=== PATIENT | male | born 1945 | race Caucasian/White ===

== ENCOUNTER 2019-12-17 06:59 | Outpatient (REF) | payer MEDICARE, OTHER, SELFPAY ==
[2019-12-17 08:09] LABS: Estimated Average Glucose 140 mg/dL; Hemoglobin A1c % 6.5 %
[2019-12-17 08:19] LABS: Cholesterol 162 mg/dL; HDL Cholesterol 61 mg/dL; LDL Cholesterol Calculated 77 mg/dl; Triglycerides 122 mg/dL
== END 2019-12-17 07:00 | disposition home or self-care (01) ==
LOC: HO.LAB 06:59
PROVIDERS: Visit Provider Internal Medicine
DX: E11.9 Type 2 diabetes mellitus without complications (principal)
CPT/HCPCS: 80061; 83036

== ENCOUNTER 2020-02-11 07:01 | Outpatient (REF) | payer MEDICARE, OTHER, SELFPAY ==
[2020-02-11 08:15] LABS: Hematocrit 45.2 % (42-52); Hemoglobin 15.2 g/dl (14.0-18.0)
[2020-02-11 08:28] LABS: Estimated Average Glucose 134 mg/dL; Hemoglobin A1c % 6.3 %
[2020-02-11 08:44] LABS: Cholesterol 158 mg/dL; HDL Cholesterol 58 mg/dL; LDL Cholesterol Calculated 76 mg/dl; Triglycerides 120 mg/dL
[2020-02-11 08:46] LABS: Alanine Aminotransferase 25 U/L (0-40); Albumin Level 4.4 g/dL (3.5-5.0); Alkaline Phosphatase 42 U/L (39-117); Anion Gap 16 (12-20); Aspartate Amino Transferase 17 U/L (5-37); Bilirubin Total 0.8 mg/dL (0.0-1.0); Blood Urea Nitrogen 15 mg/dL (9-16); Calcium 9.1 mg/dL (8.4-10.2); Carbon Dioxide 28 mmol/L (22-29); Chloride 101 mmol/L (96-108); Estimated Glomerular Filt Rate > 60; Glucose Fasting 125 mg/dL (60-99); Potassium 3.9 mmol/l (3.3-5.1); Sodium 141 mmol/L (135-145)
[2020-02-11 09:02] LABS: Creatinine Urine 173.68 mg/dL
[2020-02-11 09:07] LABS: Vitamin D 25-OH Total 39.1 ng/mL (>30)
[2020-02-12 18:57] LABS: LDL Cholesterol Direct 81 mg/dL (<100)
== END 2020-02-11 07:02 | disposition home or self-care (01) ==
LOC: HO.LAB 07:01
PROVIDERS: PCP Internal Medicine; Visit Provider Internal Medicine Endocrinology, Diabetes & Metabolism
DX: E11.65 Type 2 diabetes mellitus with hyperglycemia (principal)
CPT/HCPCS: 36415; 80053; 80061; 82043; 82306; 83036; 83721; 85014; 85018

== ENCOUNTER → 2020-02-17 08:02 | Outpatient (BNVA) | payer MEDICARE, OTHER, SELFPAY | PROVIDERS: PCP Internal Medicine; Referring Provider Internal Medicine; Visit Provider Internal Medicine Endocrinology, Diabetes & Metabolism | DX: E11.40 Type 2 diabetes mellitus with diabetic neuropathy, unspecified (principal); I10 Essential (primary) hypertension; E78.5 Hyperlipidemia, unspecified; E55.9 Vitamin D deficiency, unspecified; E04.2 Nontoxic multinodular goiter; Z79.4 Long term (current) use of insulin; Z79.899 Other long term (current) drug therapy | CPT/HCPCS: Q3014 ==

== ENCOUNTER → 2020-08-04 09:11 | Outpatient (BNVA) | payer MEDICARE, OTHER, SELFPAY | PROVIDERS: PCP Internal Medicine; Visit Provider Urology | DX: N40.1 Benign prostatic hyperplasia with lower urinary tract symptoms (principal); R35.0 Frequency of micturition; R39.12 Poor urinary stream | CPT/HCPCS: 51798; 99212 ==

== ENCOUNTER 2020-08-11 07:02 | Outpatient (REF) | payer MEDICARE, OTHER, SELFPAY ==
[2020-08-11 08:44] LABS: MANUAL DIFF FLAG NO
[2020-08-11 08:48] LABS: Basophils Absolute Auto 0.1 X10*3/uL (0.0-0.2); Basophils Percent Auto 0.7 % (0-2); Eosinophils Absolute Auto 0.2 X10*3/uL (0.0-0.4); Eosinophils Percent Auto 2.3 % (0-4); Hematocrit 43.4 % (42-52); Hemoglobin 14.4 g/dl (14.0-18.0); Imm Gran Abs Auto 0.02 X10*3/uL (0.00-0.03); Imm Gran Pct Auto 0.3 % (0.0-0.4); Lymphocytes Absolute Auto 2.2 X10*3/uL (1.2-4.9); Lymphocytes Percent Auto 31.9 % (20-40); Mean Corpuscular HGB Conc 33.2 g/dl (31.0-36.0); Mean Corpuscular Hemoglobin 29.9 pg (27.0-33.0); Mean Corpuscular Volume 90.2 fL (80-98); Mean Platelet Volume 11.4 fL (9.4-12.4); Monocytes Absolute Auto 0.7 X10*3/uL (0.1-1.2); Monocytes Percent Auto 9.5 % (2-11); Neutrophils Absolute Auto 3.8 X10*3/uL (2.0-8.3); Neutrophils Percent Auto 55.3 % (45-73); Platelet Count 217 X10*3/uL (160-400); Red Blood Count 4.81 X10*6/uL (4.60-5.80); White Blood Count 6.9 X10*3/uL (4.8-10.8)
[2020-08-11 08:53] LABS: Estimated Average Glucose 137 mg/dL; Hemoglobin A1c % 6.4 %
[2020-08-11 09:03] LABS: Alanine Aminotransferase 26 U/L (0-40); Albumin Level 4.1 g/dL (3.5-5.0); Alkaline Phosphatase 41 U/L (39-117); Anion Gap 16 (12-20); Aspartate Amino Transferase 17 U/L (5-37); Bilirubin Total 0.7 mg/dL (0.0-1.0); Blood Urea Nitrogen 16 mg/dL (9-16); Calcium 9.4 mg/dL (8.4-10.2); Carbon Dioxide 29 mmol/L (22-29); Chloride 102 mmol/L (96-108); Cholesterol 158 mg/dL; Estimated Glomerular Filt Rate 58; Glucose Fasting 130 mg/dL (60-99); HDL Cholesterol 56 mg/dL; LDL Cholesterol Calculated 77 mg/dl; Potassium 3.9 mmol/L (3.3-5.1); Sodium 143 mmol/L (135-145); Total Protein 6.7 g/dL (6.5-8.0); Triglycerides 126 mg/dL
[2020-08-11 09:26] LABS: Thyroid Stimulating Hormone 1.05 uIU/mL (0.32-4.0)
[2020-08-11 09:30] LABS: Creatinine Urine 206.35 mg/dL; Microalbum/Creatinine Ratio Ur 5.8 ug/mg cr
== END 2020-08-11 07:03 | disposition home or self-care (01) ==
LOC: HO.LAB 07:02
PROVIDERS: PCP Internal Medicine; Visit Provider Internal Medicine
DX: Z00.00 Encounter for general adult medical examination without abnormal findings (principal); E11.9 Type 2 diabetes mellitus without complications; E03.9 Hypothyroidism, unspecified
CPT/HCPCS: 36415; 80053; 80061; 82043; 83036; 84443; 85025

== ENCOUNTER → 2020-08-18 07:59 | Outpatient (BNVA) | payer MEDICARE, OTHER, SELFPAY | PROVIDERS: PCP Internal Medicine; Visit Provider Internal Medicine Endocrinology, Diabetes & Metabolism | DX: E11.40 Type 2 diabetes mellitus with diabetic neuropathy, unspecified (principal); E78.5 Hyperlipidemia, unspecified; E55.9 Vitamin D deficiency, unspecified; E04.2 Nontoxic multinodular goiter; I10 Essential (primary) hypertension; Z79.4 Long term (current) use of insulin | CPT/HCPCS: 82947; 99212 ==

== ENCOUNTER 2021-03-16 07:39 | Outpatient (REF) | payer MEDICARE, OTHER, SELFPAY ==
[2021-03-16 08:45] LABS: Estimated Average Glucose 128 mg/dL; Hemoglobin A1c % 6.1 %
[2021-03-16 08:49] LABS: Cholesterol 159 mg/dL; HDL Cholesterol 53 mg/dL; LDL Cholesterol Calculated 83 mg/dl; Triglycerides 119 mg/dL
== END 2021-03-16 07:40 | disposition home or self-care (01) ==
LOC: HO.LAB 07:39
PROVIDERS: PCP Internal Medicine; Visit Provider Internal Medicine
DX: E11.9 Type 2 diabetes mellitus without complications (principal)
CPT/HCPCS: 36415; 80061; 83036

== ENCOUNTER 2021-06-18 06:50 | Outpatient (REF) | payer MEDICARE, OTHER, SELFPAY ==
[2021-06-18 07:56] LABS: Cholesterol 151 mg/dL; Glucose Fasting 99 mg/dL (60-99); HDL Cholesterol 54 mg/dL; LDL Cholesterol Calculated 69 mg/dl; Triglycerides 141 mg/dL
[2021-06-18 08:04] LABS: Estimated Average Glucose 128 mg/dL; Hemoglobin A1c % 6.1 %
== END 2021-06-18 06:51 | disposition home or self-care (01) ==
LOC: HO.LAB 06:50
PROVIDERS: PCP Internal Medicine; Visit Provider Internal Medicine
DX: Z00.00 Encounter for general adult medical examination without abnormal findings (principal); E11.65 Type 2 diabetes mellitus with hyperglycemia
CPT/HCPCS: 36415; 80061; 82947; 83036

== ENCOUNTER 2021-07-27 07:04 | Outpatient (REF) | payer MEDICARE, OTHER, SELFPAY ==
[2021-07-27 07:14] LABS: MANUAL DIFF FLAG NO
[2021-07-27 07:25] LABS: Basophils Absolute Auto 0.1 X10*3/uL (0.0-0.2); Basophils Percent Auto 0.7 % (0-2); Eosinophils Absolute Auto 0.2 X10*3/uL (0.0-0.4); Eosinophils Percent Auto 2.5 % (0-4); Hematocrit 44.4 % (42.0-52.0); Imm Gran Abs Auto 0.02 X10*3/uL (0.00-0.03); Imm Gran Pct Auto 0.2 % (0.0-0.4); Lymphocytes Absolute Auto 2.4 X10*3/uL (1.2-4.9); Lymphocytes Percent Auto 29.8 % (20-40); Mean Corpuscular HGB Conc 33.8 g/dl (31.0-36.0); Mean Corpuscular Hemoglobin 30.5 pg (27.0-33.0); Mean Corpuscular Volume 90.2 fL (80.0-98.0); Mean Platelet Volume 10.4 fL (9.4-12.4); Monocytes Absolute Auto 0.8 X10*3/uL (0.1-1.2); Monocytes Percent Auto 9.7 % (2-11); Neutrophils Absolute Auto 4.6 x10*3/uL (2.0-8.3); Neutrophils Percent Auto 57.1 % (45-73); Platelet Count 245 X10*3/uL (160-400); Red Blood Count 4.92 X10*6/uL (4.60-5.80); Red Cell Distribution Width 13.6 % (11.0-16.0); White Blood Count 8.1 X10*3/uL (4.8-10.8)
[2021-07-27 07:31] LABS: Estimated Average Glucose 123 mg/dL; Hemoglobin A1c % 5.9 %
[2021-07-27 08:04] LABS: Alanine Aminotransferase 22 U/L (0-40); Albumin Level 4.2 g/dL (3.5-5.0); Alkaline Phosphatase 44 U/L (39-117); Anion Gap 15 (12-20); Aspartate Amino Transferase 17 U/L (5-37); Bilirubin Total 0.9 mg/dL (0.0-1.0); Blood Urea Nitrogen 16 mg/dL (9-16); Calcium 9.2 mg/dL (8.4-10.2); Carbon Dioxide 27 mmol/L (22-29); Chloride 101 mmol/L (96-108); Cholesterol 157 mg/dL; Estimated Glomerular Filt Rate 59; Glucose Fasting 104 mg/dL (60-99); HDL Cholesterol 56 mg/dL; LDL Cholesterol Calculated 73 mg/dl; Sodium 139 mmol/L (135-145); Triglycerides 141 mg/dL
[2021-07-27 08:39] LABS: Prostate Specific Antigen 3.06 ng/mL (<0.05-4.0)
== END 2021-07-27 07:05 | disposition home or self-care (01) ==
LOC: HO.LAB 07:04
PROVIDERS: Nurse Practitioner Family; PCP Internal Medicine; Visit Provider Urology
DX: E78.00 Pure hypercholesterolemia, unspecified (principal); N40.1 Benign prostatic hyperplasia with lower urinary tract symptoms; N13.8 Other obstructive and reflux uropathy; E11.9 Type 2 diabetes mellitus without complications; I10 Essential (primary) hypertension; Z12.5 Encounter for screening for malignant neoplasm of prostate
CPT/HCPCS: 36415; 80053; 80061; 83036; 84153; 85025

== ENCOUNTER → 2021-08-03 08:52 | Outpatient (BNVA) | payer MEDICARE, OTHER, SELFPAY | PROVIDERS: PCP Internal Medicine; Visit Provider Urology | DX: N40.1 Benign prostatic hyperplasia with lower urinary tract symptoms (principal); N13.8 Other obstructive and reflux uropathy; R39.12 Poor urinary stream; R35.0 Frequency of micturition | CPT/HCPCS: 51798; 99212 ==

== ENCOUNTER 2021-12-30 06:52 | Outpatient (REF) | payer MEDICARE, OTHER, SELFPAY ==
[2021-12-30 08:10] LABS: Estimated Average Glucose 128 mg/dL; Hemoglobin A1c % 6.1 %
[2021-12-30 08:11] LABS: Cholesterol 162 mg/dL; Glucose Fasting 110 mg/dL (60-99); HDL Cholesterol 54 mg/dL; LDL Cholesterol Calculated 83 mg/dl; Triglycerides 128 mg/dL
== END 2021-12-30 06:53 | disposition home or self-care (01) ==
LOC: HO.LAB 06:52
PROVIDERS: PCP Internal Medicine; Visit Provider Internal Medicine
DX: E11.65 Type 2 diabetes mellitus with hyperglycemia (principal); E78.5 Hyperlipidemia, unspecified
CPT/HCPCS: 36415; 80061; 82947; 83036

== ENCOUNTER 2022-03-29 07:07 | Outpatient (REF) | payer MEDICARE, OTHER, SELFPAY ==
[2022-03-29 07:54] LABS: Estimated Average Glucose 123 mg/dL; Hemoglobin A1c % 5.9 %
[2022-03-29 08:08] LABS: Cholesterol 159 mg/dL; Glucose Fasting 97 mg/dL (60-99); HDL Cholesterol 58 mg/dL; LDL Cholesterol Calculated 77 mg/dl; Triglycerides 121 mg/dL
== END 2022-03-29 07:08 | disposition home or self-care (01) ==
LOC: HO.LAB 07:07
PROVIDERS: PCP Internal Medicine; Visit Provider Internal Medicine
DX: E78.5 Hyperlipidemia, unspecified (principal); E11.65 Type 2 diabetes mellitus with hyperglycemia
CPT/HCPCS: 36415; 80061; 82947; 83036

== ENCOUNTER 2022-07-04 06:55 | Outpatient (REF) | payer MEDICARE, OTHER, SELFPAY ==
[2022-07-04 07:39] LABS: Estimated Average Glucose 120 mg/dL; Hemoglobin A1c % 5.8 %
[2022-07-04 07:59] LABS: Glucose Fasting 107 mg/dL (60-99)
[2022-07-04 08:07] LABS: Cholesterol 142 mg/dL; HDL Cholesterol 50 mg/dL; LDL Cholesterol Calculated 72 mg/dl; Triglycerides 103 mg/dL
[2022-07-04 08:24] LABS: Prostate Specific Antigen 3.77 ng/mL (<0.05-4.0)
== END 2022-07-04 06:56 | disposition home or self-care (01) ==
LOC: HO.LAB 06:55
PROVIDERS: Absent Provider Internal Medicine; PCP Internal Medicine; Visit Provider Urology
DX: Z12.5 Encounter for screening for malignant neoplasm of prostate (principal); N13.8 Other obstructive and reflux uropathy; N40.1 Benign prostatic hyperplasia with lower urinary tract symptoms; E78.5 Hyperlipidemia, unspecified; R73.9 Hyperglycemia, unspecified
CPT/HCPCS: 36415; 80061; 82947; 83036; 84153

== ENCOUNTER 2022-09-30 07:10 | Outpatient (REF) | payer MEDICARE, OTHER, SELFPAY ==
[2022-09-30 07:40] LABS: Estimated Average Glucose 120 mg/dL; Hemoglobin A1c % 5.8 %
[2022-09-30 07:48] LABS: Cholesterol 143 mg/dL; Glucose Fasting 100 mg/dL (60-99); HDL Cholesterol 57 mg/dL; LDL Cholesterol Calculated 66 mg/dl; Triglycerides 101 mg/dL
== END 2022-09-30 07:11 | disposition home or self-care (01) ==
LOC: HO.LAB 07:10
PROVIDERS: PCP Internal Medicine; Visit Provider Internal Medicine
DX: R73.9 Hyperglycemia, unspecified (principal); E78.5 Hyperlipidemia, unspecified
CPT/HCPCS: 36415; 80061; 82947; 83036

== ENCOUNTER 2022-10-06 09:24 | Outpatient (AMB) | payer MEDICARE, OTHER, SELFPAY ==
[2022-10-06 09:29] VITALS: BP 104/62; PULSE 81; O2SAT 97; BMI 31.4
--- NOTE | 2022-10-06 09:29 | MHC.PC.OV ---
Vital Signs 10/06/22 09:29 Height 6 ft 1 in Weight 238 lb BMI 31.4 BP 104/62 Blood Pressure Location Lt brachial Position Sitting Pulse 81 Pulse Source Pulse Oximeter Pulse Oximetry (%) 97 Oxygen Delivery Method Room Air Intake Visit Reasons: 3mth f/u Allergies No Known Allergies Allergy (Mild, Verified 10/06/22 09:29) NA grass,trees etc Allergy (Unknown, Uncoded 10/06/22 09:29) Unknown Medication List - Last Reconciled 10/06/22 by Peewee Pan MD amlodipine 5 mg PO DAILY 90 days aspirin (Adult Low Dose Aspirin) 81 mg PO DAILY azithromycin take 500 mg today (day 1), then 250 mg for 4 days (days 2-5) PO cholecalciferol (vitamin D3) 50 mcg PO DAILY 90 days dulaglutide (Trulicity) 1.5 mg (0.5 mL) subcut QWEEK 90 days insulin degludec (Tresiba FlexTouch U-100 insulin) 20 units (0.2 mL) subcut DAILY 90 days lisinopril-hydrochlorothiazide 20-12.5 mg 1 tab PO BID lovastatin 40 mg PO DAILY 90 days metformin 1,000 mg PO BID 90 days pen needle, diabetic As directed Tobacco use date assessed: 04/04/22 Fall risk assessment: No Falls in past year Last assessed Fall Risk: 10/06/22 Dental Screening Dental Screen Date: 10/06/22 Did you have a dental visit in the last 12 months?: Yes Did you have a dental problem in the last 6 months where you did not have access to dental care?: No Was dental information given to patient?: Patient has dentist HPI 3mth f/u HPI Details DM HTN and hyperlipidemia; A1C 5.8 PFSH Medical History Feeling of incomplete bladder emptying Nocturia Surgical History History of appendectomy History of biopsy History of excision of lesion History of laminectomy Family History Father Old age Mother Heart disease Social History Housing: House Alcohol intake: current Alcohol intake frequency: a few times a month Patient Tobacco Use Status: Former Tobacco user Tobacco use type: Cigarette e-Cigarette/Vaping Use: Never Used Second Hand Smoke Exposure: No service: No Current occupational status: retired Cognitive needs: No Hearing needs: No Vision needs: No Questionnaire PHQ-9 Over the last 2 weeks, how often have you been bothered by any of the following problems? 1. Little interest or pleasure in doing things: not at all 2. Feeling down, depressed, or hopeless: not at all 3. Trouble falling or staying asleep, or sleeping too much: not at all 4. Feeling tired or having little energy: not at all 5. Poor appetite or overeating: not at all 6. Feeling bad about yourself - or that you are a failure or have let yourself or your family down: not at all 7. Trouble concentrating on things, such as reading the newspaper or watching television: not at all 8. Moving or speaking so slowly that other people could have noticed. Or the opposite - being so fidgety or restless that you have been moving around a lot more than usual: not at all 9. Thoughts that you would be better off or of hurting yourself in some way: not at all Total score: 0 Depression Screening Interpretation: Negative 61664 - PHQ-9 Billing: Yes Source: Developed by Drs. Filiberto Smith, Zofia Fonseca, Mohan Tello and colleagues, with an educational geoff from [employer]. Thrive Questionnaire Date Thrive assessed: 10/06/22 I am a: Patient What is your living situation today?: I have a steady place to live Within the past 12 months, did the food you bought not last and you didn't have the money to get more?: Never true Within the past 12 months, did you worry whether your food would run out before you got money to buy more?: Never true Do you have trouble paying for medicines?: No Do you have trouble getting transportation to medical appointments?: No Do you have trouble paying your heating and electricity bill?: No Do you have trouble taking care of your child, family member or friend?: No Do you have trouble with day-to-day activities such as bathing, preparing meals, shopping, managing finances, etc.?: No Are you currently unemployed and looking for a job?: No Are you interested in more education?: No Currently or been in a relationship where the following occur: no concerns reported AUDIT C Alcohol Use Questionnaire (AUDIT-C) 1. How often do you have a drink containing alcohol?: Monthly or less 2. How many drinks containing alcohol do you have on a typical day when you are drinking?: 1 or 2 3. How often do you have six or more drinks on one occasion?: Never Total Score: 1 Score Reviewed/Action Taken: Yes BRIAN-7 AMB Questionnaire BRIAN-7 Date BRIAN - 7 assessed: 10/06/22 Feeling nervous, anxious, or on edge: 0 = Not at all Not being able to stop or control worryin = Not at all Worrying too much about different things: 0 = Not at all Trouble relaxin = Not at all Being so restless that it is hard to sit still: 0 = Not at all Becoming easily annoyed or irritable: 0 = Not at all Feeling afraid as if something awful might happen: 0 = Not at all Total BRIAN-7 score (0-4 normal; 5-9 mild; 10-14 moderate; 15-21 severe): 0 Source: Developed by Drs. Filiberto Smith, Zofia Fonseca, Mohan Tello and colleagues, with an educational geoff from [employer]. BRIAN-7 Assessment Billing BRIAN-7 Assessment Tool: BRIAN-7 Assessment 91540 Review of Systems Const Denies chills, Denies headache(s) and Denies weight loss ENT Denies headache(s) Card Denies chest pain, Denies syncope, Denies irregular heart rhythm and Denies dyspnea Resp Denies chest congestion, Denies cough and Denies dyspnea GI Denies abdominal pain, Denies change in stool character, Denies nausea and Denies vomiting Musc Denies deformity and Denies joint swelling Neuro Denies syncope and Denies headache(s) Physical exam (Primary Care) Vital Signs: Last Vital Signs Pulse 81 10/06/22 09:29 BP 104/62 10/06/22 09:29 Pulse Ox 97 10/06/22 09:29 Oxygen Delivery Method Room Air 10/06/22 09:29 BMI result Body Mass Index 31.4 obesity BMI Assessment/Plan discussion: High BMI High, discussed plan: lifestyle, weight reduction, dietary and physical activity Tobacco/Smoking Status: Tobacco use Status Tobacco use date assessed 04/04/22 10/06/22 09:33 Patient Tobacco Use Status Former Tobacco user 10/06/22 09:33 Tobacco use type Cigarette 10/06/22 09:33 e-Cigarette/Vaping Use Never Used 10/06/22 09:33 PHQ-9: PHQ-9 Score PHQ-9: Total score 0 10/06/22 09:33 Depression Screening Interpretation: Negative Thrive Assessment: Date of Thrive Assessment Date Thrive assessed 10/06/22 10/06/22 09:33 Currently or been in a relationship where the following occur: no concerns reported Const General: cooperative, comfortable and no acute distress Chest Chest palpation & inspection: normal inspection of the chest Resp Effort & Inspection: normal respiratory effort Auscultation: clear to auscultation bilaterally and tactile fremitus present tactile fremitus present: tactile fremitus present Cardio Jugular venous distension: no JVD Rate: regular rate Rhythm: regular rhythm Assessment and Plan Assessment & Plan (1) Type 2 diabetes mellitus with obesity: Code(s): E11.69 - Type 2 diabetes mellitus with other specified complication; E66.9 - Obesity, unspecified Plan: will decrease metformin (2) Dyslipidemia: Code(s): E78.5 - Hyperlipidemia, unspecified Plan: stable; same rx (3) Hypertension: Code(s): I10 - Essential (primary) hypertension Plan: stable; same rx Orders: Orders Glucose Fasting Today R73.9 - Hyperglycemia, unspecified Hemoglobin A1c Today R73.9 - Hyperglycemia, unspecified Lipid Panel Today E78.5 - Hyperlipidemia, unspecified Coding Level of Care Code Est Pt Level 4 (12873) Diagnoses Type 2 diabetes mellitus with obesity E11.69; E66.9 Dyslipidemia E78.5 Hypertension I10 Additional Codes BRIAN-7 Assessment Billing - BRIAN-7 Assessment Tool: BRIAN-7 Assessment 12251 ([id number])
== END 2022-10-06 09:43 | disposition home or self-care (01) ==
PROVIDERS: Visit Provider Internal Medicine
DX: E11.65 Type 2 diabetes mellitus with hyperglycemia (principal); E78.5 Hyperlipidemia, unspecified; I10 Essential (primary) hypertension
CPT/HCPCS: 99214

== ENCOUNTER 2023-01-02 07:30 | Outpatient (REF) | payer MEDICARE, OTHER, SELFPAY ==
[2023-01-02 08:26] LABS: Estimated Average Glucose 134 mg/dL; Hemoglobin A1c % 6.3 % (<6.0)
[2023-01-02 08:44] LABS: Cholesterol 138 mg/dL (<200); Glucose Fasting 126 mg/dL (60-99); HDL Cholesterol 49 mg/dL (>40); LDL Cholesterol Calculated 67 mg/dL (<100); Triglycerides 112 mg/dL (<150)
== END 2023-01-02 07:31 | disposition home or self-care (01) ==
LOC: HO.LAB 07:30
PROVIDERS: PCP Internal Medicine; Visit Provider Internal Medicine
DX: R73.9 Hyperglycemia, unspecified (principal); R78.5 Finding of other psychotropic drug in blood
CPT/HCPCS: 36415; 80061; 82947; 83036

== ENCOUNTER 2023-01-09 08:38 | Outpatient (AMB) | payer MEDICARE, OTHER, SELFPAY ==
[2023-01-09 08:40] VITALS: BP 110/54; PULSE 75; O2SAT 96; BMI 32.7
--- NOTE | 2023-01-09 08:40 | A.OFFPC_ITS ---
Vital Signs 01/09/23 08:40 Height 6 ft 1 in Weight 248 lb BMI 32.7 BP 110/54 L Blood Pressure Location Lt brachial Position Sitting Pulse 75 Pulse Source Pulse Oximeter Pulse Oximetry (%) 96 Oxygen Delivery Method Room Air Intake Visit Reasons: 3mth f/u Information Resources Manager: Not Required per policy Accompanied by: Self / Same As Patient Allergies No Known Allergies Allergy (Mild, Verified 01/09/23 08:41) NA grass,trees etc Allergy (Unknown, Uncoded 01/09/23 08:41) Unknown Medication List - Last Reconciled 01/09/23 by Peewee Pan MD amlodipine 5 mg PO DAILY 90 days aspirin (Adult Low Dose Aspirin) 81 mg PO DAILY azithromycin take 500 mg today (day 1), then 250 mg for 4 days (days 2-5) PO cholecalciferol (vitamin D3) 50 mcg PO DAILY 90 days dulaglutide (Trulicity) 1.5 mg (0.5 mL) subcut QWEEK 90 days insulin degludec (Tresiba FlexTouch U-100 insulin) 20 units (0.2 mL) subcut DAILY 90 days lisinopril-hydrochlorothiazide 20-12.5 mg 1 tab PO BID lovastatin 40 mg PO DAILY 90 days metformin 1,000 mg PO BID 90 days pen needle, diabetic As directed Tobacco use date assessed: 04/04/22 Fall risk assessment: No Falls in past year Last assessed Fall Risk: 01/09/23 Dental Screening Dental Screen Date: 01/09/23 Did you have a dental visit in the last 12 months?: Yes Did you have a dental problem in the last 6 months where you did not have access to dental care?: No Was dental information given to patient?: Patient has dentist HPI 3mth f/u HPI Details DM HTN and hyperlipidemia; doing well; labs fine [facility] Medical History Type 2 diabetes mellitus with obesity Obesity Benign prostatic hyperplasia with lower urinary tract symptoms Feeling of incomplete bladder emptying Nocturia Non-toxic multinodular goiter Dyslipidemia Hypertension Diabetic neuropathy associated with type 2 diabetes mellitus shelter (current) use of insulin Diabetes type 2, controlled Diabetes mellitus Vitamin D deficiency Surgical History History of biopsy History of excision of lesion History of laminectomy History of appendectomy Family History Father Old age Mother Heart disease Housing: House Alcohol intake: current Alcohol intake frequency: a few times a month Patient Tobacco Use Status: Former Tobacco user Tobacco use type: Cigarette e-Cigarette/Vaping Use: Never Used Second Hand Smoke Exposure: No service: No Current occupational status: retired Cognitive needs: No Hearing needs: No Vision needs: No Questionnaire Thrive Questionnaire Date Thrive assessed: 10/06/22 BRIAN-7 AMB Questionnaire BRIAN-7 Date BRIAN - 7 assessed: 10/06/22 Source: Developed by Drs. Filiberto Smith, Zofia Fonseca, Moahn Tello and colleagues, with an educational geoff from [employer]. Review of Systems Const Denies chills, Denies headache(s) and Denies weight loss ENT Denies headache(s) Card Denies chest pain, Denies syncope, Denies irregular heart rhythm and Denies dyspnea Resp Denies chest congestion, Denies cough and Denies dyspnea GI Denies abdominal pain, Denies change in stool character, Denies nausea and Denies vomiting Musc Denies deformity and Denies joint swelling Neuro Denies syncope and Denies headache(s) Physical exam (Primary Care) Vital Signs: Last Vital Signs Pulse 75 01/09/23 08:40 BP 110/54 L 01/09/23 08:40 Pulse Ox 96 01/09/23 08:40 Oxygen Delivery Method Room Air 01/09/23 08:40 BMI result Body Mass Index 32.7 Tobacco/Smoking Status: Tobacco use Status Tobacco use date assessed 04/04/22 01/09/23 08:44 Patient Tobacco Use Status Former Tobacco user 01/09/23 08:44 Tobacco use type Cigarette 01/09/23 08:44 e-Cigarette/Vaping Use Never Used 01/09/23 08:44 Thrive Assessment: Date of Thrive Assessment Date Thrive assessed 10/06/22 01/09/23 08:44 Const General: cooperative, comfortable, no acute distress and alert Neck Neck: Yes no lymphadenopathy Thyroid: Thyroid normal Resp Effort & Inspection: normal respiratory effort Auscultation: clear to auscultation bilaterally Percussion: percussion normal Cardio Jugular venous distension: no JVD Palpation: normal PMI Rate: regular rate Rhythm: regular rhythm Heart sounds: S1 normal heart sound present and S2 normal heart sound present GI Inspection: Yes normal to inspection Palpation (GI): No hepatosplenomegaly present Skin General skin exam: no rashes or lesions noted Extrem General: Yes no clubbing, cyanosis or edema Assessment and Plan Assessment & Plan (1) Type 2 diabetes mellitus with obesity: Code(s): E11.69 - Type 2 diabetes mellitus with other specified complication; E66.9 - Obesity, unspecified Plan: stable; same rx (2) Dyslipidemia: Code(s): E78.5 - Hyperlipidemia, unspecified Plan: stable; same rx (3) Hypertension: Code(s): I10 - Essential (primary) hypertension Plan: stable; same rx Orders: Orders Lipid Panel Today E78.5 - Hyperlipidemia, unspecified Complete Blood Count Auto Diff Today D64.9 - Anemia, unspecified Comprehensive [place]. Panel Fast Today N28.9 - Disorder of kidney and ureter, unspecified Microalbumin, Random (w Creat) Today E11.69 - Type 2 diabetes mellitus with other specified complication, E66.01 - Morbid (severe) obesity due to excess calories Hemoglobin A1c Today R73.9 - Hyperglycemia, unspecified Coding Level of Care Code Est Pt Level 4 (53570) Diagnoses Type 2 diabetes mellitus with obesity E11.69; E66.9 Dyslipidemia E78.5 Hypertension I10
== END 2023-01-09 09:01 | disposition home or self-care (01) ==
PROVIDERS: PCP Internal Medicine; Visit Provider Internal Medicine
DX: E11.69 Type 2 diabetes mellitus with other specified complication (principal); E66.9 Obesity, unspecified; E78.5 Hyperlipidemia, unspecified; Z68.32 Body mass index [BMI] 32.0-32.9, adult; I10 Essential (primary) hypertension
CPT/HCPCS: 99214

== ENCOUNTER 2023-02-11 02:21 | Inpatient (IN) | payer MEDICARE, OTHER, SELFPAY ==
[2023-02-11] VITALS (7 sets, daily range): BP systolic 123–154; BP diastolic 61–81; PULSE 66–78; RESP 14–18; TEMP 36.5–36.8; O2SAT 92–98; BMI 32.5
--- NOTE | ~2023-02-11 | CT_ITS ---
EXAMINATION: CT ABDOMEN AND PELVIS WITH AND WITHOUT CONTRAST: CT GI BLEEDING STUDY CLINICAL INFORMATION: Occult blood. Evaluate for GI bleed. COMPARISON: Most recent CT abdomen/pelvis dated 05/02/2017. TECHNIQUE: Multidetector volumetric imaging was performed from the lung bases to the pubic symphysis before and after the administration of: 85 mL Omnipaque 350. Immediate and delayed postcontrast images were obtained. No contrast reaction reported. MIP coronal, sagittal and coronal reformatted images were obtained on the technologist workstation. Total exam dose-length product 2172 mGy-cm FINDINGS: GI BLEED: STOMACH: No abnormal wall thickening or mass. There appears to be thin enhancement/contrast along the periphery of the antrum which could represent normal variation versus trace contrast extravasation. Findings are more prominent on the immediate postcontrast images and less prominent on the delayed images. SMALL BOWEL: No abnormal wall thickening or dilation. No intraluminal contrast accumulation to suggest hemorrhage. COLON: No intraluminal contrast accumulation to suggest hemorrhage. No colonic wall thickening or pericolonic inflammatory changes. Appendix not identified; however, no right lower quadrant inflammatory change to suggest acute appendicitis. OTHER: LUNG BASES: Partially visualized emphysematous changes within the lung bases. The lung bases are otherwise clear. PLEURA: No basilar pleural effusion. LIVER: The liver is normal in size, shape, and attenuation. No focal hepatic lesion or biliary ductal dilatation is present. GALLBLADDER: The gallbladder is unremarkable with no evidence of radiopaque gallstones, gallbladder wall thickening, or obvious pericholecystic inflammatory changes. PANCREAS: Normal; no mass or surrounding fluid. SPLEEN: Normal size. No focal lesion. ADRENAL GLANDS: Normal; no mass. KIDNEYS AND URETERS: The kidneys are normal in size, shape, and attenuation. No hydronephrosis, hydroureter, or calculi. Multiple simple bilateral renal cysts are redemonstrated. Findings are not clinically significant and no dedicated follow-up imaging is recommended. ABDOMINAL WALL: No hernia seen. VASCULAR: No abdominal aortic dilatation or dissection. Atherosclerotic calcifications. No active extravasation of contrast. LYMPH: No lymphadenopathy. BLADDER: Nondistended. No associated calcification. PELVIC VISCERA: Redemonstration of prostatomegaly. OSSEOUS STRUCTURES: No acute or suspicious osseous abnormality. CT/CT gi bleed abd pel wo/w IVcon IMPRESSION: 1. Thin enhancement/contrast along the periphery of the gastric antrum which could represent normal variation versus trace contrast extravasation. Findings are more prominent on the immediate postcontrast images and less prominent on the delayed images. No active extravasation of contrast. 2. No additional intraluminal contrast accumulation to suggest hemorrhage. No abnormal bowel wall thickening or associated inflammatory change. No small- or large-bowel obstruction. 3. No intra-abdominal mass, lymphadenopathy, or ascites. 4. Additional chronic findings are unchanged.
--- NOTE | 2023-02-11 02:52 | MHC.EDTECH ---
Patient brought into triage area,labs were obtained and sent to lab,patient brought back to waiting area.
[2023-02-11 02:53] LABS: Basophils Absolute Auto 0.1 X10*3/uL (0.0-0.2); Basophils Percent Auto 0.5 % (0-2); Eosinophils Absolute Auto 0.1 X10*3/uL (0.0-0.4); Eosinophils Percent Auto 0.9 % (0-4); Hematocrit 46.5 % (42.0-52.0); Hemoglobin 15.7 g/dl (14.0-18.0); Imm Gran Abs Auto 0.02 X10*3/uL (0.00-0.03); Imm Gran Pct Auto 0.2 % (0.0-0.4); Lymphocytes Absolute Auto 1.6 X10*3/uL (1.2-4.9); Lymphocytes Percent Auto 15.6 % (20-40); MANUAL DIFF FLAG NO; Mean Corpuscular HGB Conc 33.8 g/dl (31.0-36.0); Mean Corpuscular Hemoglobin 29.7 pg (27.0-33.0); Mean Corpuscular Volume 88.1 fL (80.0-98.0); Mean Platelet Volume 10.4 fL (9.4-12.4); Monocytes Absolute Auto 0.9 X10*3/uL (0.1-1.2); Neutrophils Absolute Auto 7.4 x10*3/uL (2.0-8.3); Neutrophils Percent Auto 73.8 % (45-73); Platelet Count 215 X10*3/uL (160-400); Red Blood Count 5.28 X10*6/uL (4.60-5.80); Red Cell Distribution Width 13.8 % (11.0-16.0)
[2023-02-11 03:06] LABS: Alanine Aminotransferase 22 U/L (0-40); Albumin Level 4.3 g/dL (3.5-5.0); Alkaline Phosphatase 58 U/L (39-117); Anion Gap 13 (12-20); Aspartate Amino Transferase 16 U/L (5-37); Bilirubin Total 0.6 mg/dL (0.0-1.0); Blood Urea Nitrogen 18 mg/dL (9-16); Calcium 9.7 mg/dL (8.4-10.2); Carbon Dioxide 27 mmol/L (22-29); Chloride 105 mmol/L (96-108); Creatinine Clr Calc Pharmacy 67.3; Estimated Glomerular Filt Rate 57; Glucose Random 123 mg/dL (60-115); Potassium 3.6 mmol/L (3.3-5.1); Sodium 141 mmol/L (135-145); Total Protein 7.3 g/dL (6.5-8.0)
--- NOTE | 2023-02-11 06:58 | PC.NURSE ---
BRB in toilet after BM, pt reports multiple episodes since 7pm last night. Pt denies any rectal pain or history of hemorrhoids or GI bleed. Pt reports anal fissure repaired a couple years ago by . Abdominal pain 2/10 cramping in nature when he has to go to br.
--- NOTE | 2023-02-11 07:00 | ED_ITS ---
HPI - General Adult General Chief complaint: GI Bleed Stated complaint: Rectal bleeding Time Seen by Provider: 02/11/23 06:37 Source: patient and family () Mode of arrival: ambulatory Limitations: no limitations History of Present Illness HPI narrative: 77 year old male w/ pmhx significant for T2DM, diabetic neuropathy, HTN, HDL, BPH here for evaluation of bright red blood per rectum beginning last night. He states that around 1930 yesterday he began having abdominal cramping, 1 episode of diarrhea and 1 episode of vomiting. About an hour later he went to use the bathroom again and reports a passing a bowel movement that was bright red in color. He has been passing bloody bowel movements since. Admits there were some blood on wiping. 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 Not on anticoagulation. Takes 81 mg aspirin daily. Denies sick contacts. Denies fever, chills, hematemesis, coffee-ground emesis, constipation, dysuria, hematuria. Related Data Home Medications Medication Instructions Recorded Confirmed aspirin 81 mg tablet,delayed 81 mg PO DAILY 12/23/19 02/11/23 release (Adult Low Dose Aspirin) dulaglutide 1.5 mg/0.5 mL 1.5 mg subcut MO@0900 02/11/23 02/11/23 subcutaneous pen injector ([facility]) metformin 1,000 mg tablet 1,000 mg PO BEDTIME 02/11/23 02/11/23 Previous Rx's Medication Instructions Recorded cholecalciferol (vitamin D3) 50 50 mcg PO DAILY 90 days #90 caps 08/18/20 mcg (2,000 unit) capsule insulin degludec 100 unit/mL (3 20 unit (0.2 mL) subcut DAILY 90 06/30/22 mL) subcutaneous pen ( #30 mL FlexTouch U-100 insulin) pen needle, diabetic 32 gauge x #100 ea 07/07/22 lisinopril 20 1 tab PO BID #180 tabs 09/22/22 mg-hydrochlorothiazide 12.5 mg tablet lovastatin 40 mg tablet 40 mg PO DAILY 90 days #90 tabs 10/23/22 amlodipine 5 mg tablet 5 mg PO DAILY 90 days #90 tabs 11/21/22 Allergies Allergy/AdvReac Type Severity Reaction Status Date / Time grass,trees etc Allergy Unknown Unknown Uncoded 02/11/23 02:28 Review of Systems 2 Review of Systems: Constitutional: No fever, chills, fatigue, night sweats, weight changes ENT/Mouth: No ear pain, hearing loss, nasal congestion, sinus pain, rhinorrhea, sore throat Eyes: No eye pain, swelling, redness, vision changes, discharge Cardio: No chest pain, palpitations, SANDERSON, orthopnea, peripheral edema Pulm: No SOB, cough, sputum, wheezing, dyspnea, hemoptysis GI: No nausea, vomiting, hematemesis, abdominal pain, diarrhea, constipation, +BRBPR, No melena : No irregular bleeding, dysuria, frequency, urgency, hesitancy, hematuria, flank pain, urinary flow changes, urinary incontinence or retention MSK: No back pain, neck pain, joint pain, myalgias Skin: No lesions, rashes Neuro: No weakness, numbness, paresthesias, LOC, dizziness, headache Psych: No anxiety/panic, depression, SI/HI, AH/VH Heme/Lymph: No bruising, bleeding, lymphadenopathy Endocrine: No polyuria, polydipsia, temperature intolerance All other systems reviewed and are negative. [facility] Past Medical History Attestation statement: The following information was validated with the patient. Source: old records reviewed and nursing notes reviewed Medical History Type 2 diabetes mellitus with obesity Obesity Benign prostatic hyperplasia with lower urinary tract symptoms Feeling of incomplete bladder emptying Nocturia Non-toxic multinodular goiter Dyslipidemia Hypertension Diabetic neuropathy associated with type 2 diabetes mellitus halfway (current) use of insulin Diabetes type 2, controlled Diabetes mellitus Vitamin D deficiency Surgical History History of biopsy History of excision of lesion History of laminectomy History of appendectomy Family History Family History Father Old age Mother Heart disease Social History Social History Housing: House Alcohol intake: current Alcohol intake frequency: holidays/special occasions only Patient Tobacco Use Status: Former Tobacco user Tobacco use type: Cigarette Smoked in Last 30 Days: No e-Cigarette/Vaping Use: Never Used Second Hand Smoke Exposure: No Use of substances other than those prescribed or required for medical reasons: No Advance Directives: No Advance Directives Information Provided: Yes service: No Current occupational status: retired Cognitive needs: No Hearing needs: No Vision needs: No Physical Exam ED Vital Signs: Vital Signs - 24 hr 02/11/23 02:22 02/11/23 06:25 02/11/23 08:43 Temperature 98.2 F 97.8 F Pulse Rate 78 71 71 Respiratory Rate 18 14 16 Blood Pressure 154/61 H 129/77 123/64 Pulse Oximetry 97 94 96 Oxygen Delivery Method Room Air Room Air Room Air 02/11/23 11:31 02/11/23 14:21 Temperature 97.7 F Pulse Rate 68 Respiratory Rate 18 18 Blood Pressure 126/81 132/77 Pulse Oximetry 95 92 Oxygen Delivery Method Room Air Room Air BMI result Body Mass Index 32.5 Initially hypertensive to 154/61, now vitals WNL. Const General: cooperative, healthy appearing, comfortable, no acute distress, alert and awake Orientation/consciousness: patient oriented x3 Limitations: no limitations Eyes General: appearance normal, both eyes and all related structures Conjunctivae: conjunctivae normal Sclerae: sclerae normal Pupils: Equal, round and reactive pupils present Neck Neck: Yes normal visual inspection Resp Effort & Inspection: normal respiratory effort Auscultation: clear to auscultation bilaterally Cardio Rate: regular rate Rhythm: regular rhythm Peripheral pulses: radial pulses present GI Other: Rectal exam performed with [employer] machine operator present in room to mill tender washing. Normal rectal sphincter tone. No external masses or lesions. No palpable internal masses. Stool is normal in appearance. Guaiac positive. Inspection: Yes normal to inspection Palpation (GI): Soft to palpation, nontender, no guarding and hepatosplenomegaly present General: Yes no CVA tenderness Back/Spine/Pelvis Back: no CVA tenderness Skin General skin exam: no rashes or lesions noted Neuro General: patient oriented x3 and gait normal Cranial nerves: Yes Equal, round and reactive pupils present Extrem General: Yes normal to inspection Course Course Course Narrative: 0740-- cbc without leukocytosis or anemia. h&h stable. BUN elevated which appears to be patient's baseline when compared to priors. Creatinine wnl > patient receiving IVF. Chemistry without acute electrolyte abnormality requiring intervention. Rectal exam wnl > no visible external hemorrhoids. no palpable internal hemorrhoids. Guiac positive > will obtain CT abd/pelvis w/ and w/o con to further investigate etiology of GI bleed. 1111-- patient tested negative for RSV, COVID, flu. CT scan abdomen and pelvis with and without IV contrast shows and enhancement/contrast along the periphery of the gastric antrum, possibly representing normal variation vs contrast extravasation. Findings are more prominent on the in the ED it postcontrast images and most prominent on the delayed images. No active extravasation of contrast. There is no additional intraluminal contrast accumulation to suggest hemorrhage. No abnormal bowel wall thickening or associated inflammatory changes. No small or large bowel obstruction. 1130-- Discussed patient's case and CT findings with GI Dr. Webber who recommends PPI and IVF for possible GI ulcer. > will present to hospitalist for admission as patient continues to have BRBPR in ED. 1306-- Admission accepted by hospitalist YAYA Nix who will put in admission orders. Medications Administered Discontinued Medications Generic Name Dose Route Start Last Admin Trade Name Freq PRN Reason Stop Dose Admin Sodium Chloride 1,000 mls @ 999 mls/hr 02/11/23 07:30 02/11/23 10:54 Ns IV 02/11/23 08:30 Infused .Q1H1M MARY ALICE Infusion Iohexol 100 ml 02/11/23 08:37 02/11/23 08:39 Iohexol 350 Mg/Ml 100 Ml Infus..Btl IV 02/11/23 08:38 85 ml ONCE ONE Administration Medical Decision Making Medical Decision Making MDM Narrative: 77 year old male w/ pmhx significant for T2DM, diabetic neuropathy, HTN, HDL, BPH here for evaluation of bright red blood per rectum beginning last night. Patient initially hypertensive to 154/61. Now normotensive. Vital signs otherwise WNL. He is afebrile. He is nontoxic-appearing and in no acute distress. Lying comfortably on the bed. Abdomen is soft, nondistended, nontender to palpation, no rebound tenderness or guarding, normoactive bowel sounds x4. On [place]O, there are no external hemorrhoids or active bleeding. No palpable internal masses or hemorrhoids. Guaiac positive. Clinical concern for peptic ulcer disease, hemorrhoids, diverticulosis, diverticulitis, gastroenteritis, gastritis. Unlikely appendicitis, cholecystitis, ischemic bowel, acute abdomen. Differential Diagnosis Differential Diagnoses: The differential diagnosis associated with the presentation includes as above. Admission/Observation Consideration of admission/observation: Escalation of care including admission/observation considered This 77-year-old patient with GI bleed and continued bright red blood per rectum will be admitted. Consult Healthcare Provider Management of the patient was discussed with: Hospitalist (YAYA Nix) and Business Strategist (SARANYA Webber) Lab Data MDM Lab Attestation statement: I reviewed the patient's lab results. as above 02/11/23 02:48 02/11/23 02:48 Labs: Lab Results 02/11/23 02/11/23 02/11/23 Range/Units 02:48 07:14 09:40 WBC 10.0 (4.8-10.8) X10*3/uL RBC 5.28 (4.60-5.80) X10*6/uL Hgb 15.7 (14.0-18.0) g/dl Hct 46.5 (42.0-52.0) % MCV 88.1 (80.0-98.0) fL MCH 29.7 (27.0-33.0) pg MCHC 33.8 (31.0-36.0) g/dl RDW 13.8 (11.0-16.0) % Plt Count 215 (160-400) X10*3/uL MPV 10.4 (9.4-12.4) fL Immature Gran % (Auto) 0.2 (0.0-0.4) % Neut % (Auto) 73.8 H (45-73) % Lymph % (Auto) 15.6 L (20-40) % Payette % (Auto) 9.0 (2-11) % Eos % (Auto) 0.9 (0-4) % Baso % (Auto) 0.5 (0-2) % Lymph # (Auto) 1.6 (1.2-4.9) X10*3/uL [place]ette # (Auto) 0.9 (0.1-1.2) X10*3/uL Eos # (Auto) 0.1 (0.0-0.4) X10*3/uL Baso # (Auto) 0.1 (0.0-0.2) X10*3/uL Abs Immat Gran (auto) 0.02 (0.00-0.03) X10*3/uL Absolute Neuts (auto) 7.4 (2.0-8.3) x10*3/uL Absolute Nucleated RBC 0.000 (0.0-0.012) X10*3/uL Nucleated RBC % (auto) 0.0 (0.0-0.2) /100WBC PT (11.1-13.3) SEC INR (0.9-1.1) Sodium 141 (135-145) mmol/L Potassium 3.6 (3.3-5.1) mmol/L Chloride 105 (96-108) mmol/L Carbon Dioxide 27 (22-29) mmol/L Anion Gap 13 (12-20) BUN 18 H (9-16) mg/dL Creatinine 1.24 (0.5-1.4) mg/dL Estim Creat Clear Calc 67.3 Estimated GFR 57 Random Glucose 123 H (60-115) mg/dL Calcium 9.7 (8.4-10.2) mg/dL Magnesium 1.8 (1.6-2.6) mg/dL Total Bilirubin 0.6 (0.0-1.0) mg/dL AST 16 (5-37) U/L ALT 22 (0-40) U/L Alkaline Phosphatase 58 (39-117) U/L Total Protein 7.3 (6.5-8.0) g/dL Albumin 4.3 (3.5-5.0) g/dL Lipase 35 (8-78) U/L Stool Occult Blood POSITIVE (NEGATIVE) Influenza Type A (PCR) NEGATIVE (Negative) Influenza Type B (PCR) NEGATIVE (Negative) RSV RNA Qual (PCR) NEGATIVE (Negative) SARS-CoV-2 RNA (RT-PCR) NEGATIVE (Negative) 02/11/23 Range/Units 12:01 WBC (4.8-10.8) X10*3/uL RBC (4.60-5.80) X10*6/uL Hgb (14.0-18.0) g/dl Hct (42.0-52.0) % MCV (80.0-98.0) fL MCH (27.0-33.0) pg MCHC (31.0-36.0) g/dl RDW (11.0-16.0) % Plt Count (160-400) X10*3/uL MPV (9.4-12.4) fL Immature Gran % (Auto) (0.0-0.4) % Neut % (Auto) (45-73) % Lymph % (Auto) (20-40) % [place]ette % (Auto) (2-11) % Eos % (Auto) (0-4) % Baso % (Auto) (0-2) % Lymph # (Auto) (1.2-4.9) X10*3/uL [place]ette # (Auto) (0.1-1.2) X10*3/uL Eos # (Auto) (0.0-0.4) X10*3/uL Baso # (Auto) (0.0-0.2) X10*3/uL Abs Immat Gran (auto) (0.00-0.03) X10*3/uL Absolute Neuts (auto) (2.0-8.3) x10*3/uL Absolute Nucleated RBC (0.0-0.012) X10*3/uL Nucleated RBC % (auto) (0.0-0.2) /100WBC PT 13.1 (11.1-13.3) SEC INR 1.1 (0.9-1.1) Sodium (135-145) mmol/L Potassium (3.3-5.1) mmol/L Chloride (96-108) mmol/L Carbon Dioxide (22-29) mmol/L Anion Gap (12-20) BUN (9-16) mg/dL Creatinine (0.5-1.4) mg/dL Estim Creat Clear Calc Estimated GFR Random Glucose (60-115) mg/dL Calcium (8.4-10.2) mg/dL Magnesium (1.6-2.6) mg/dL Total Bilirubin (0.0-1.0) mg/dL AST (5-37) U/L ALT (0-40) U/L Alkaline Phosphatase (39-117) U/L Total Protein (6.5-8.0) g/dL Albumin (3.5-5.0) g/dL Lipase (8-78) U/L Stool Occult Blood (NEGATIVE) Influenza Type A (PCR) (Negative) Influenza Type B (PCR) (Negative) RSV RNA Qual (PCR) (Negative) SARS-CoV-2 RNA (RT-PCR) (Negative) Independent Interpretation I performed an independent interpretation of an: CT Scan Interpretation: I personally reviewed patient's CT scan and agree with radiologist's interpretation. Radiology Impression Discussion of test interpretation with radiology: I have reviewed the radiologist's reading. Radiologist Impression: CT gi bleed abd pel wo/w IVcon IMPRESSION: 1. Thin enhancement/contrast along the periphery of the gastric antrum which could represent normal variation versus trace contrast extravasation. Findings are more prominent on the immediate postcontrast images and less prominent on the delayed images. No active extravasation of contrast. 2. No additional intraluminal contrast accumulation to suggest hemorrhage. No abnormal bowel wall thickening or associated inflammatory change. No small- or large-bowel obstruction. 3. No intra-abdominal mass, lymphadenopathy, or ascites. 4. Additional chronic findings are unchanged. Independent Historian Clinical information obtained from an independent historian. History obtained from or confirmed by: Spouse () External Record Review External record reviewed: Inpatient record, Office record, Outpatient record, Prior outpatient labs, Prior outpatient radiology, Primary care record and Outside ED record Prescription Management I considered prescription management with: Other (PPI) Chronic Conditions Patient?s care impacted by: Diabetes and Hypertension Social Determinants Patient?s care significantly limited by Social Determinants of Health including: Other Social Determinant of Health Critical Care Time Critical Care Time Critical Care Time: Yes Total Critical Care Time: 60 Attestation: Critical care time in the amount of 60 minutes has been provided to the patient in terms of direct patient care, frequent reevaluation, consultation with GI doctor, review and interpretation of medical data and results, and management of potentially life-threatening conditions. This is all outside of any medical procedures. Discharge Plan Discharge Clinical Impression: GI (gastrointestinal bleed) Patient Disposition: Home, Self-Care Additional Instructions: Your labs today were reassuring. You likely have a gastric ulcer. Omeprazole is a proton pump inhibitor. Take this twice daily for the next four weeks. Prescriptions: No Action Tresiba FlexTouch U-100 100 unit/mL (3 mL) insulin pen 20 unit subcut DAILY 90 Days Qty: 30 2RF (DME) pen needle, diabetic 32 gauge x 5/32 needle See Rx Instructions .ROUTE .MEDSUPPLY Qty: 100 2RF Rx Instructions: As directed lisinopril-hydrochlorothiazide 20-12.5 mg tablet 1 tab PO BID Qty: 180 3RF lovastatin 40 mg tablet 40 mg PO DAILY 90 Days Qty: 90 1RF amlodipine 5 mg tablet 5 mg PO DAILY 90 Days Qty: 90 1RF metformin 1,000 mg tablet 1,000 mg PO BEDTIME Trulicity 1.5 mg/0.5 mL pen injector 1.5 mg subcut MO@0900 Rx Instructions: Dose increased aspirin [Adult Low Dose Aspirin] 81 mg tablet,delayed release (DR/EC) 81 mg PO DAILY cholecalciferol (vitamin D3) 50 mcg (2,000 unit) capsule 50 mcg PO DAILY 90 Days Qty: 90 3RF
[2023-02-11 07:31] LABS: OBS Int Ctl Valid YES; OBS1 POSITIVE (NEGATIVE)
[2023-02-11 07:53] LABS: Lipase 35 U/L (8-78); Magnesium 1.8 mg/dL (1.6-2.6)
[2023-02-11] MEDS: 0.9 % Sodium Chloride 1,000 ML 999 ML IV (08:16)
--- NOTE | 2023-02-11 08:37 | PC.NURSE ---
20g iv inserted R wrist, pt tolerated well, IV fluids started. Pt taken to ct scan.
[2023-02-11] MEDS: iohexoL 350 MG/ML 100 ML INFUS..BTL IV (08:39)
[2023-02-11 10:23] LABS: Influenza A PCR NEGATIVE (Negative); Influenza B PCR NEGATIVE (Negative); Resp Syncy Virus RNA Qual PCR NEGATIVE (Negative); SARS COV2 PCR INHOUSE NEGATIVE (Negative)
[2023-02-11 12:13] LABS: INTERNATIONAL NORM RATIO 1.1 (0.9-1.1); Prothrombin Time 13.1 SEC (11.1-13.3)
--- NOTE | 2023-02-11 12:19 | PC.NURSE ---
Alert and oriented, denies pain or discomfort. VSS, at bedside
--- NOTE | 2023-02-11 14:34 | PHA.MEDREC ---
Pharmacy Consult ? Medication Reconciliation Pharmacy has completed the medication reconciliation.
[2023-02-11 16:55] LABS: MANUAL DIFF FLAG NO
[2023-02-11 16:57] LABS: Basophils Percent Auto 0.5 % (0-2); Eosinophils Absolute Auto 0.2 X10*3/uL (0.0-0.4); Hemoglobin 14.9 g/dl (14.0-18.0); Imm Gran Abs Auto 0.01 X10*3/uL (0.00-0.03); Imm Gran Pct Auto 0.1 % (0.0-0.4); Lymphocytes Absolute Auto 1.7 X10*3/uL (1.2-4.9); Lymphocytes Percent Auto 21.8 % (20-40); Mean Corpuscular HGB Conc 33.9 g/dl (31.0-36.0); Mean Corpuscular Hemoglobin 30.7 pg (27.0-33.0); Mean Corpuscular Volume 90.7 fL (80.0-98.0); Mean Platelet Volume 11.3 fL (9.4-12.4); Monocytes Absolute Auto 0.8 X10*3/uL (0.1-1.2); Monocytes Percent Auto 10.3 % (2-11); Neutrophils Absolute Auto 5.2 x10*3/uL (2.0-8.3); Neutrophils Percent Auto 65.3 % (45-73); Platelet Count 195 X10*3/uL (160-400); Red Blood Count 4.85 X10*6/uL (4.60-5.80); Red Cell Distribution Width 13.9 % (11.0-16.0); White Blood Count 7.9 X10*3/uL (4.8-10.8)
--- NOTE | 2023-02-11 17:10 | P.HPHOSP_ITS ---
History of Present Illness Date of Service: 02/11/23 Attending physician on admission: Trini Puga Chief Complaint: BRBpR 77-year-old male with history of insulin-dependent type 2 diabetes, diabetic polyneuropathy, nontoxic goiter, BPH, and hypertension presented to the ED very early this morning for evaluation of bright red blood per rectum. The patient states around 19:00 he was arriving home and felt sudden onset urgency to move his bowels. He had an episode of fecal incontinence and was able to move his bowels further once you reach the bathroom. Simultaneously, he also had a single episode of nonbloody emesis. Around 21:00, started with episodes of bloody bowel movements with Small amounts of liquid blood and clots without any stool about every 20 minutes. states the bowel movements themselves were painless but prior to movement would have urgency with associated left lower quadrant cramping that resolved following movement. No associated fevers, chills, recurrent nausea or vomiting. no lightheadedness, syncope, palpitations, shortness of breath, chest pain. No bad food consumption, sick contacts, recent travel. No prior history of similar episodes. Last routine colonoscopy was about 7 years ago and was normal. He did have remote EGD performed about 30 years ago due to uncontrolled GERD symptoms. On arrival, patient hemodynamically stable, no hypotension or tachycardia. Initial H/H 15.7/46.5%, repeated on admission at 14.9/44% . Stool occult blood. Renal function normal, lytes normal . CT abdomen/ pelvis with and without contrast shows thin enhancement of contrast along the periphery of the gastric antrum possibly representing normal variation versus trace contrast extravasation but no active extravasation of contrast. There is no additional intraluminal contrast accumulation to suggest hemorrhage and no abnormal bowel wall thickening or associated inflammatory change. No obstruction noted. In the ED, given 1L iv ns. Review of Systems 2 Review of Systems: General: No fevers, malaise, unintentional weight loss Cardiovascular: No chest pain, palpitations, or leg edema Respiratory: No shortness of breath, wheezing, cough GI: LLQ pain, +vomiting x 1, +BRBPR. 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 Diabetes type 2, controlled Diabetes mellitus Vitamin D deficiency Family History Father Old age Mother Heart disease Surgical History History of biopsy History of excision of lesion History of laminectomy History of appendectomy Social History Housing: House Alcohol intake: current Alcohol intake frequency: holidays/special occasions only Patient Tobacco Use Status: Former Tobacco user Tobacco use type: Cigarette Smoked in Last 30 Days: No e-Cigarette/Vaping Use: Never Used Second Hand Smoke Exposure: No Use of substances other than those prescribed or required for medical reasons: No Advance Directives: No Advance Directives Information Provided: Yes service: No Current occupational status: retired Cognitive needs: No Hearing needs: No Vision needs: No Meds Allergies Allergy/AdvReac Type Severity Reaction Status Date / Time grass,trees etc Allergy Unknown Unknown Uncoded 02/11/23 02:28 Active Medications: Current Medications Acetaminophen (Acetaminophen 325 Mg Tablet) 650 mg PO Q6H PRN PRN Reason: Pain, Mild (Pain Scale 1-3) Ondansetron HCl (Ondansetron Hcl 4 Mg/2 Ml Vial) 4 mg IVPUSH Q8H PRN PRN Reason: Nausea and Vomiting Pantoprazole Sodium (Pantoprazole Sodium 40 Mg/10 Ml Vial) 40 mg IVPUSH BID@0630,1630 MARY ALICE Senna (Sennosides 8.6 Mg Tablet) 17.2 mg PO BEDTIME PRN PRN Reason: Constipation Home Medications Medication Instructions Recorded Confirmed Last Taken Type aspirin 81 mg tablet,delayed 81 mg PO DAILY 12/23/19 02/11/23 02/10/23 09:00 History release (Adult Low Dose Aspirin) dulaglutide 1.5 mg/0.5 mL 1.5 mg subcut MO@0900 02/11/23 02/11/23 02/06/23 History subcutaneous pen injector (Trulicity) metformin 1,000 mg tablet 1,000 mg PO BEDTIME 02/11/23 02/11/23 02/09/23 History Physical Exam 2 Vital Signs and Narrative: Vital Signs: Last Vital Signs Temp 97.7 F 02/11/23 14:21 Pulse 68 02/11/23 14:21 Resp 18 02/11/23 14:21 BP 132/77 02/11/23 14:21 Pulse Ox 92 02/11/23 14:21 O2 Del Method Room Air 02/11/23 14:21 BMI result Body Mass Index 32.5 Constitutional - Awake and Alert, No apparent distress Eyes - PERRLA, EOMI Cardiovascular - S1S2, RRR, No edema Respiratory - Normal lung expansion, Normal respiratory effort, No respiratory distress, CTA bilaterally Gastrointestinal - NT / ND; +BS; No rebound or guarding Extremities - no calf tenderness bilaterally, no swelling Skin - Warm/Dry Neurological - Alert & oriented x3 Psychological - Appropriate affect Results Labs 02/11/23 16:51 02/11/23 02:48 Labs: Laboratory Results - last 24 hr 02/11/23 02/11/23 02/11/23 02:48 07:14 09:40 MCV 88.1 MCH 29.7 MCHC 33.8 RDW 13.8 Plt Count 215 MPV 10.4 Immature Gran % (Auto) 0.2 Neut % (Auto) 73.8 H Lymph % (Auto) 15.6 L [place] % (Auto) 9.0 Eos % (Auto) 0.9 Baso % (Auto) 0.5 Lymph # (Auto) 1.6 [place] # (Auto) 0.9 Eos # (Auto) 0.1 Baso # (Auto) 0.1 Abs Immat Gran (auto) 0.02 Absolute Neuts (auto) 7.4 Absolute Nucleated RBC 0.000 Nucleated RBC % (auto) 0.0 PT INR Anion Gap 13 Estim Creat Clear Calc 67.3 Estimated GFR 57 Random Glucose 123 H Calcium 9.7 Magnesium 1.8 Total Bilirubin 0.6 AST 16 ALT 22 Alkaline Phosphatase 58 Total Protein 7.3 Albumin 4.3 Lipase 35 Stool Occult Blood POSITIVE Influenza Type A (PCR) NEGATIVE Influenza Type B (PCR) NEGATIVE RSV RNA Qual (PCR) NEGATIVE SARS-CoV-2 RNA (RT-PCR) NEGATIVE 02/11/23 02/11/23 12:01 16:51 MCV 90.7 MCH 30.7 MCHC 33.9 RDW 13.9 Plt Count 195 MPV 11.3 Immature Gran % (Auto) 0.1 Neut % (Auto) 65.3 Lymph % (Auto) 21.8 [place] % (Auto) 10.3 Eos % (Auto) 2.0 Baso % (Auto) 0.5 Lymph # (Auto) 1.7 [place] # (Auto) 0.8 Eos # (Auto) 0.2 Baso # (Auto) 0.0 Abs Immat Gran (auto) 0.01 Absolute Neuts (auto) 5.2 Absolute Nucleated RBC 0.000 Nucleated RBC % (auto) 0.0 PT 13.1 INR 1.1 Anion Gap Estim Creat Clear Calc Estimated GFR Random Glucose Calcium Magnesium Total Bilirubin AST ALT Alkaline Phosphatase Total Protein Albumin Lipase Stool Occult Blood Influenza Type A (PCR) Influenza Type B (PCR) RSV RNA Qual (PCR) SARS-CoV-2 RNA (RT-PCR) Imaging Radiologist's Impressions: Impressions Abdomen/Pelvis CT 02/11/23 08:49 IMPRESSION: 1. Thin enhancement/contrast along the periphery of the gastric antrum which could represent normal variation versus trace contrast extravasation. Findings are more prominent on the immediate postcontrast images and less prominent on the delayed images. No active extravasation of contrast. 2. No additional intraluminal contrast accumulation to suggest hemorrhage. No abnormal bowel wall thickening or associated inflammatory change. No small- or large-bowel obstruction. 3. No intra-abdominal mass, lymphadenopathy, or ascites. 4. Additional chronic findings are unchanged. Assessment and Plan (1) GI (gastrointestinal bleed): Status: Acute Plan 77-year-old male with history of insulin-dependent type 2 diabetes, diabetic polyneuropathy, nontoxic goiter, BPH, and hypertension admitted for further managemnet of suspected lower GI bleed #Suspected lower GI bleed -Hct 46.5% --> 44.0%, stool occult blood positive -CT abdomen/ pelvis with/without contrast shows thin enhancement/ contrast along the periphery of the gastric antrum possibly representing normal variation versus trace contrast extravasation. No active extravasation of the contrast. No additional intraluminal contrast accumulation to suggest hemorrhage. - Patient history and exam most consistent with lower GI bleed -Per GI recs, continue IV PPI, clear liquids. Plan for EGD -Discussed with GI. Will also prep for colonoscopy whic hpt is agreeable to -NPO after midnight -GI consult -hold asa -Monitor on telemetry -Follow h/h # insulin-dependent type 2 diabetes without hyperglycemia - last hemoglobin A1c 6.3% -Last POC 110. 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 Quality Stroke Does the patient have a stroke diagnosis?: No VTE Prior VTE?: No VTE Risk Level:: Medical - moderate - high VTE Device Contraindication: N/A - Device Ordered VTE Drug Contraindication: Treatment Not Indicated
[2023-02-11 17:14] LABS: Anion Gap 14 (12-20); Blood Urea Nitrogen 15 mg/dL (9-16); Calcium 9.3 mg/dL (8.4-10.2); Carbon Dioxide 26 mmol/L (22-29); Chloride 105 mmol/L (96-108); Creatinine Clr Calc Pharmacy 72.6; Estimated Glomerular Filt Rate > 60; Glucose Random 110 mg/dL (60-115); Potassium 3.6 mmol/L (3.3-5.1); Sodium 141 mmol/L (135-145)
[2023-02-11] MEDS: Pantoprazole Sodium 40 MG/10 ML VIAL IVPUSH (17:16)
--- NOTE | 2023-02-11 17:44 | PM.GICN ---
History of Present Illness Data of Consult Service Date: 02/11/23 Requesting physician: Kassy Loera Primary Care Provider: Peewee Pan MD [facility] Reason for consult: GI bleeding 77 YM with IDDM, diabetic polyneuropathy, nontoxic goiter, BPH, and hypertension seen at [facility] ED on 02/11/23 for evaluation of BRBPR. The patient stated he was arriving homw around 19:00 and felt a sudden onset urgency to move his bowels. He had an episode of fecal incontinence and was able to move his bowels further once he reached the bathroom. Simultaneously, he also had a single episode of nonbloody emesis. Around 21:00, he started having episodes of bloody bowel movements with small amounts of liquid blood and clots without any stool about every 20 minutes. Pt reported the bowel movements were painless but prior to movement would have urgency with associated left lower quadrant cramping which resolved after he had a BM. Patient denied fever, chills, recurrent nausea or vomiting, lightheadedness, syncope, palpitations, shortness of breath or chest pain. He denied bad food consumption, sick contacts or recent travel or past history of similar episodes. Last routine colonoscopy was about 7 years ago and was normal. He did have remote EGD performed about 30 years ago due to uncontrolled GERD symptoms. On arrival at the ED, patient was hemodynamically stable. Initial H/H 15.7/46.5%, repeated on admission at 14.9/44% . Stool occult blood was positive. Renal function normal, lytes normal . In the ED, pt was given 1litre of IV normal saline. 02/11/[address] SCAN SHOWED: 1. Thin enhancement/contrast along the periphery of the gastric antrum which could represent normal variation versus trace contrast extravasation. Findings are more prominent on the immediate postcontrast images and less prominent on the delayed images. No active extravasation of contrast. 2. No additional intraluminal contrast accumulation to suggest hemorrhage. No abnormal bowel wall thickening or associated inflammatory change. No small- or large-bowel obstruction. 3. No intra-abdominal mass, lymphadenopathy, or ascites. 4. Additional chronic findings are unchanged. Review of Systems Review of Systems: General: No fevers, malaise, unintentional weight loss Cardiovascular: No chest pain, palpitations, or leg edema Respiratory: No shortness of breath, wheezing, cough GI: LLQ pain, +vomiting x 1, +BRBPR. 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 Diabetes type 2, controlled Diabetes mellitus Vitamin D deficiency Family History Family History Father Old age Mother Heart disease Surgical History Surgical History History of biopsy History of excision of lesion History of laminectomy History of appendectomy Social History Social History Housing: House Alcohol intake: current Alcohol intake frequency: holidays/special occasions only Patient Tobacco Use Status: Former Tobacco user Tobacco use type: Cigarette e-Cigarette/Vaping Use: Never Used Second Hand Smoke Exposure: No service: No Current occupational status: retired Cognitive needs: No Hearing needs: No Vision needs: Yes Meds Allergies Allergy/AdvReac Type Severity Reaction Status Date / Time grass,trees etc Allergy Unknown Unknown Uncoded 08/09/23 11:40 Active Medications: Current Medications Acetaminophen (Acetaminophen 325 Mg Tablet) 650 mg PO Q6H PRN PRN Reason: Pain, Mild (Pain Scale 1-3) Amlodipine Besylate (Amlodipine Besylate 5 Mg Tablet) 5 mg PO DAILY MARY ALICE; Protocol Dextrose (Dextrose 50 % 25 Gm/50 Ml Syringe) 25 gm IVPUSH Q15M PRN; Protocol PRN Reason: per Hypoglycemia Standing Ord. Glucose (Glucose Gel 15 Gm Gel..Gram.) 15 gm PO Q15M PRN; Protocol PRN Reason: per Hypoglycemia Standing Ord. Insulin Human Lispro (Insulin Lispro 100 Unit/Ml 3 Ml Vial) 0 unit SUBCUT QIDACHS MARY ALICE; Protocol Ondansetron HCl (Ondansetron Hcl 4 Mg/2 Ml Vial) 4 mg IVPUSH Q8H PRN PRN Reason: Nausea and Vomiting Pantoprazole Sodium (Pantoprazole Sodium 40 Mg/10 Ml Vial) 40 mg IVPUSH BID@0630,1630 [facility] Last Admin: 02/11/23 17:16 Dose: 40 mg Polyethylene Glycol/Electrolytes (Peg 3350/Na Sulf,Bicarb,Cl/Kcl 4,000 Ml Soln.Recon) 4,000 ml PO ONCE ONE Stop: 02/11/23 17:46 Pravastatin Sodium (Pravastatin Sodium 40 Mg Tablet) 40 mg PO DAILY [facility] Senna (Sennosides 8.6 Mg Tablet) 17.2 mg PO BEDTIME PRN PRN Reason: Constipation Vitamin D (Cholecalciferol (Vitamin D3) 25 Mcg Tablet) 50 mcg PO DAILY [facility] Home Medications ?Medication ?Instructions ?Recorded ?Confirmed ?Last Taken ?Type aspirin 81 mg tablet,delayed 81 mg PO DAILY 12/23/19 08/10/23 02/10/23 09:00 History release (Adult Low Dose Aspirin) Physical Exam Vital Signs: Vital Signs: Last Vital Signs Temp 97.7 F 02/11/23 14:21 Pulse 68 02/11/23 14:21 Resp 18 02/11/23 14:21 BP 132/77 02/11/23 14:21 Pulse Ox 92 02/11/23 14:21 O2 Del Method Room Air 02/11/23 14:21 BMI result Body Mass Index 32.5 Const: General: no acute distress Nutritional Appearance: obese Orientation/consciousness: patient oriented x3 Limitations: no limitations HEENT: Head: Yes normal to inspection Ears: hearing grossly normal bilaterally Eyes: Sclerae: sclerae normal Pupils: Equal, round and reactive pupils present Neck: Neck: Yes normal visual inspection Chest: Chest palpation & inspection: normal inspection of the chest Resp: Effort & Inspection: normal respiratory effort Auscultation: clear to auscultation bilaterally Cardio: Palpation: normal PMI Rate: regular rate Rhythm: regular rhythm Heart sounds: S1 normal heart sound present, S2 normal heart sound present and no murmurs GI: Palpation (GI): Soft to palpation, nontender and No hepatosplenomegaly present Auscultation: normal bowel sounds Rectal Exam - Male: Yes deferred Skin: General skin exam: no rashes or lesions noted Neuro: General: patient oriented x3, gait normal and moves all extremities Cranial nerves: Yes Equal, round and reactive pupils present Psych: Appearance: grossly normal Mental Status: mental status grossly normal Results Labs 02/12/23 06:01 02/12/23 06:01 Labs: Short CBC 02/11/23 02/11/23 Range/Units 02:48 16:51 WBC 10.0 7.9 (4.8-10.8) X10*3/uL Hgb 15.7 14.9 (14.0-18.0) g/dl Hct 46.5 44.0 (42.0-52.0) % Plt Count 215 195 (160-400) X10*3/uL BMP 02/11/23 02/11/23 02:48 16:51 Sodium 141 141 Potassium 3.6 3.6 Chloride 105 105 Carbon Dioxide 27 26 BUN 18 H 15 Creatinine 1.24 1.15 Calcium 9.7 9.3 Liver Function 02/11/23 Range/Units 02:48 Total Bilirubin 0.6 (0.0-1.0) mg/dL AST 16 (5-37) U/L ALT 22 (0-40) U/L Alkaline Phosphatase 58 (39-117) U/L Albumin 4.3 (3.5-5.0) g/dL Assessment and Plan (1) GI (gastrointestinal bleed): Status: Resolved (2) Abnormal CT scan, gastrointestinal tract: Status: Acute Plan 77 YM with IDDM, diabetic polyneuropathy, nontoxic goiter, BPH, and hypertension seen at [facility] ED on 02/11/23 for evaluation of BRBPR. Last routine colonoscopy was about 7 years ago and was normal. He did have remote EGD performed about 30 years ago due to uncontrolled GERD symptoms. Initial H/H 15.7/46.5%, repeated on admission at 14.9/44% . Stool occult blood was positive. In the ED, pt was given 1litre of IV normal saline. Abd CT scan showed thin enhancement/contrast along the periphery of the gastric antrum which could represent normal variation versus trace contrast extravasation. Findings are more prominent on the immediate postcontrast images and less prominent on the delayed images. No active extravasation of contrast. RECOMMENDATIONS: 1. Agree with IV PPI and monitoring CBC twice a day 2. Proceed with EGD (FU of abnormal CT scan of the stomach) and colonoscpy (evaluation of rectal bleeding) ADDENDUM: Pt was given Golytely prep and colonoscopy scheduled on 02/12/23 at 10 am. Pt stated he did not have any bleeding since he started taking the Golytely prep overnight (hematocrit dropped from 44-40.6). Pt and expressed frustration since he was not transferred to a hospital room and had to drink GoLYTELY prep while in the ER. Pt reported he was incontinent of stool and had difficulty getting help to take him to the bathroom at night. Pt declined endoscopic evaluation since rectal bleeding had subsided and he denied having any upper GI symptoms. Pt prefers to go home on PO PPI and schedule a follow-up appointment as an outpatient. Patient was advised to return to the ER in case of recurrent bleeding. ADDENDUM: 04/14/23 Pt had a colonoscopy as am out patient by Dr Herring would left-sided diverticulosis and small internal and external hemorrhoids Procedures Date of Service Date of Service: 08/27/23
--- NOTE | 2023-02-11 17:48 | PC.NURSE ---
Alert and oriented, continues to make frequent trips to the bathroom. Reports is seeing less blood while having a BM, denies pain or discomfort, at bedside
[2023-02-11] MEDS: PEG 3350/Na Sulf,Bicarb,Cl/KCL 4,000 ML SOLN.RECON 4000 ML PO (18:34)
--- NOTE | 2023-02-11 18:34 | PC.NURSE ---
Patient / educated on prep instructions, both verbalized understanding
[2023-02-11 20:42] LABS: Glucose, Whole Blood 115 mg/dL (60-115)
--- NOTE | 2023-02-11 23:19 | PC.NURSE ---
assumed care of pt
[2023-02-12 01:42] VITALS: BP 145/78; PULSE 75; RESP 16; TEMP 36.6; O2SAT 97
[2023-02-12 06:43] VITALS: BP 129/74; PULSE 75; RESP 15; O2SAT 98
[2023-02-12] MEDS: Pantoprazole Sodium 40 MG/10 ML VIAL IVPUSH (06:43)
[2023-02-12 06:45] LABS: MANUAL DIFF FLAG NO
[2023-02-12 07:03] LABS: Basophils Absolute Auto 0.1 X10*3/uL (0.0-0.2); Basophils Percent Auto 0.7 % (0-2); Eosinophils Absolute Auto 0.2 X10*3/uL (0.0-0.4); Eosinophils Percent Auto 2.6 % (0-4); Hematocrit 40.6 % (42.0-52.0); Hemoglobin 13.7 g/dl (14.0-18.0); Imm Gran Abs Auto 0.02 X10*3/uL (0.00-0.03); Imm Gran Pct Auto 0.2 % (0.0-0.4); Lymphocytes Absolute Auto 1.9 X10*3/uL (1.2-4.9); Lymphocytes Percent Auto 22.9 % (20-40); Mean Corpuscular HGB Conc 33.7 g/dl (31.0-36.0); Mean Corpuscular Hemoglobin 30.4 pg (27.0-33.0); Mean Platelet Volume 11.7 fL (9.4-12.4); Monocytes Absolute Auto 0.9 X10*3/uL (0.1-1.2); Neutrophils Absolute Auto 5.3 x10*3/uL (2.0-8.3); Neutrophils Percent Auto 62.6 % (45-73); Platelet Count 170 X10*3/uL (160-400); Red Blood Count 4.51 X10*6/uL (4.60-5.80); Red Cell Distribution Width 14.1 % (11.0-16.0); White Blood Count 8.4 X10*3/uL (4.8-10.8)
[2023-02-12 07:08] LABS: Anion Gap 14 (12-20); Blood Urea Nitrogen 15 mg/dL (9-16); Carbon Dioxide 27 mmol/L (22-29); Chloride 107 mmol/L (96-108); Creatinine Clr Calc Pharmacy 79.5; Estimated Glomerular Filt Rate > 60; Glucose Random 100 mg/dL (60-115); Potassium 3.5 mmol/L (3.3-5.1); Sodium 144 mmol/L (135-145)
--- NOTE | 2023-02-12 08:03 | PC.NURSE ---
assumed care of pt at 0700. pt pleasant, calm, and cooperative. commode at bedside for bowel prep. pt to go for colonoscopy/EGD at some point this am. at bedside. pt NPO other than bowel prep. 20G IV to right wrist. pt on bedside monitor. rr even/unlabored. plan of care ongoing.
[2023-02-12 08:18] LABS: Glucose, Whole Blood 99 mg/dL (60-115)
[2023-02-12] MEDS: Pravastatin Sodium 40 MG TABLET PO (10:29)
[2023-02-12] MEDS: Cholecalciferol (Vitamin D3) 25 MCG TABLET 50 MCG PO (10:30)
[2023-02-12] MEDS: amLODIPine Besylate 5 MG TABLET PO (10:30)
[2023-02-12 10:34] VITALS: BP 130/70; PULSE 76; RESP 13; O2SAT 95
--- NOTE | 2023-02-12 10:48 | PC.NURSE ---
pt medicated per mar per the OK by GI provider. pt and appear to be getting frustrated with the pt having to bowel prep in ED. GI and Dr. Puga at bedside. will complete admission report in case pt decides to stay.
--- NOTE | 2023-02-12 11:07 | PM.DS ---
DS: Providers Provider Date of Service: 02/12/23 Date of admission: 02/11/23 17:07 Primary care physician: Peewee Pan MD Consults: 02/11/23 17:01 Consult to Gastroenterology Routine Consulting Provider: Emma Daniel Reason for consultation: GI bleed DS: Diagnosis Discharge Diagnosis (1) GI (gastrointestinal bleed): Status: Acute DS: Summary Hospital Course Hospital Course: History of presenting illness: Date of Service: 02/11/23 Attending physician on admission: Trini Puga Chief Complaint: BRBpR 77-year-old male with history of insulin-dependent type 2 diabetes, diabetic polyneuropathy, nontoxic goiter, BPH, and hypertension presented to the ED very early this morning for evaluation of bright red blood per rectum. The patient states around 19:00 he was arriving home and felt sudden onset urgency to move his bowels. He had an episode of fecal incontinence and was able to move his bowels further once you reach the bathroom. Simultaneously, he also had a single episode of nonbloody emesis. Around 21:00, started with episodes of bloody bowel movements with Small amounts of liquid blood and clots without any stool about every 20 minutes. states the bowel movements themselves were painless but prior to movement would have urgency with associated left lower quadrant cramping that resolved following movement. No associated fevers, chills, recurrent nausea or vomiting. no lightheadedness, syncope, palpitations, shortness of breath, chest pain. No bad food consumption, sick contacts, recent travel. No prior history of similar episodes. Last routine colonoscopy was about 7 years ago and was normal. He did have remote EGD performed about 30 years ago due to uncontrolled GERD symptoms. On arrival, patient hemodynamically stable, no hypotension or tachycardia. Initial H/H 15.7/46.5%, repeated on admission at 14.9/44% . Stool occult blood. Renal function normal, lytes normal . CT abdomen/ pelvis with and without contrast shows thin enhancement of contrast along the periphery of the gastric antrum possibly representing normal variation versus trace contrast extravasation but no active extravasation of contrast. There is no additional intraluminal contrast accumulation to suggest hemorrhage and no abnormal bowel wall thickening or associated inflammatory change. No obstruction noted. In the ED, given 1L iv ns. Hospital course: Acute GI bleed; 77-year-old male with history of insulin-dependent type 2 diabetes, diabetic polyneuropathy, nontoxic goiter, BPH, and hypertension admitted for further managemnet of suspected lower GI bleed, stool blood was positive,CT abdomen/ pelvis with/without contrast showed thin enhancement/ contrast along the periphery of the gastric antrum possibly representing normal variation versus trace contrast extravasation. No active extravasation of the contrast. No additional intraluminal contrast accumulation to suggest hemorrhage, patient was started on IV ppi, initially EGD was planned but patient noted to pass small liquidy blood and clots every 20 minutes without any stools associated with lower abdominal cramps prior to bowel movement , case was discussed with Gastroenterology and colonoscopy was planned patient was made NPO after midnight, aspirin was held, colonic prep was given, H&H was monitored Overnight patient rectal bleeding stopped, hematocrit dropped from 44-40.6 patient was evaluated by Dr. Daniel for a colonoscopy, however patient declined to undergo procedure since he is feeling better and wishes to be discharged home, reason for upper endoscopy and lower colonoscopy was explained by Dr. Daniel patient understood but declined the procedure . Patient and frustrated due to long wait for hospital bed and starting prep for colonoscopy in the emergency department. In regard to insulin-dependent type 2 diabetes patient blood sugars remain stable recommend to continue home medications and follow diabetic diet and continue gabapentin for neuropathy, for hypertension he is recommended to continue all home medications. Time Attestation Discharge coordination time: Greater than 30 minutes Quality: Safe Use of Opioids Does Pt have an Active Cancer Diagnosis on the Problem List?: No Quality: Stroke Does the patient have a stroke diagnosis?: No Physical Exam Vital Signs: Vital Signs: Last Vital Signs Temp 97.8 F 02/12/23 01:42 Pulse 76 02/12/23 10:34 Resp 13 02/12/23 10:34 BP 130/70 02/12/23 10:34 Pulse Ox 95 02/12/23 10:34 O2 Del Method Room Air 02/12/23 10:34 BMI result Body Mass Index 32.5 Const: Other: General awake alert x3 resting comfortably in no acute distress. Neck supple no JVD. CVS regular rate rhythm, Respiratory lungs clear to auscultation, no respiratory distress, no wheeze, no rhonchi. Gastrointestinal abdomen soft, non tender, bowel sounds audible, no guarding , no rigidity. Extremities no edema. Neuro nonfocal Skin no rash Psych appropriate affect DS: Data Data Completed and Pending Labs on day of discharge: Laboratory Results - last 24 hr 02/11/23 02/11/23 02/11/23 12:01 16:51 20:38 WBC 7.9 RBC 4.85 Hgb 14.9 Hct 44.0 MCV 90.7 MCH 30.7 MCHC 33.9 RDW 13.9 Plt Count 195 MPV 11.3 Immature Gran % (Auto) 0.1 Neut % (Auto) 65.3 Lymph % (Auto) 21.8 [place] % (Auto) 10.3 Eos % (Auto) 2.0 Baso % (Auto) 0.5 Lymph # (Auto) 1.7 [place] # (Auto) 0.8 Eos # (Auto) 0.2 Baso # (Auto) 0.0 Abs Immat Gran (auto) 0.01 Absolute Neuts (auto) 5.2 Absolute Nucleated RBC 0.000 Nucleated RBC % (auto) 0.0 PT 13.1 INR 1.1 Sodium 141 Potassium 3.6 Chloride 105 Carbon Dioxide 26 Anion Gap 14 BUN 15 Creatinine 1.15 Estim Creat Clear Calc 72.6 Estimated GFR > 60 POC Glucose 115 Random Glucose 110 Calcium 9.3 02/12/23 02/12/23 06:01 08:11 WBC 8.4 RBC 4.51 L Hgb 13.7 L Hct 40.6 L MCV 90.0 MCH 30.4 MCHC 33.7 RDW 14.1 Plt Count 170 MPV 11.7 Immature Gran % (Auto) 0.2 Neut % (Auto) 62.6 Lymph % (Auto) 22.9 [place] % (Auto) 11.0 Eos % (Auto) 2.6 Baso % (Auto) 0.7 Lymph # (Auto) 1.9 [place] # (Auto) 0.9 Eos # (Auto) 0.2 Baso # (Auto) 0.1 Abs Immat Gran (auto) 0.02 Absolute Neuts (auto) 5.3 Absolute Nucleated RBC 0.000 Nucleated RBC % (auto) 0.0 PT INR Sodium 144 Potassium 3.5 Chloride 107 Carbon Dioxide 27 Anion Gap 14 BUN 15 Creatinine 1.05 Estim Creat Clear Calc 79.5 Estimated GFR > 60 POC Glucose 99 Random Glucose 100 Calcium 9.0 Discharge Plan Discharge Anticipated Discharge Date/Time: 02/12/23 11:03 Patient Disposition: Home, Self-Care Discharge Diagnosis: Acute GI bleed Referrals: Peewee Pan MD [Primary Care Provider] - 1 Week Discharge Medications: New omeprazole 20 mg capsule,delayed release(DR/EC) 20 mg PO BID Qty: 60 0RF Continued Tresiba FlexTouch U-100 100 unit/mL (3 mL) insulin pen 20 unit subcut DAILY 90 Days Qty: 30 2RF (DME) pen needle, diabetic 32 gauge x 5/32 needle See Rx Instructions .ROUTE .MEDSUPPLY Qty: 100 2RF Rx Instructions: As directed lisinopril-hydrochlorothiazide 20-12.5 mg tablet 1 tab PO BID Qty: 180 3RF lovastatin 40 mg tablet 40 mg PO DAILY 90 Days Qty: 90 1RF amlodipine 5 mg tablet 5 mg PO DAILY 90 Days Qty: 90 1RF metformin 1,000 mg tablet 1,000 mg PO BEDTIME Trulicity 1.5 mg/0.5 mL pen injector 1.5 mg subcut MO@0900 Rx Instructions: Dose increased cholecalciferol (vitamin D3) 50 mcg (2,000 unit) capsule 50 mcg PO DAILY 90 Days Qty: 90 3RF Held aspirin [Adult Low Dose Aspirin] 81 mg tablet,delayed release (DR/EC) 81 mg PO DAILY Hold Instructions: Resume on 02/19/23. Discharge Orders: Discharge Order (Routine); Ordered 02/12/23 Ordered By: Trini Puga Diet: Diabetic diet Activity on Discharge: As tolerated Stand Alone Forms: Patient Portal Discharge page Activity Restrictions/Additional Instructions: Omeprazole is a proton pump inhibitor. Take this twice daily for the next four weeks, hold aspirin for 1 week and follow-up with Gastroenterology. [facility] to [facility] with recurrent episodes of GI bleed, lightheadedness, dizziness or chest pain Care Plan Goals: GI bleed resolved Health Concerns: Diabetes/hypertension continue all home medications Plan of Treatment: Follow-up with primary care physician and care nurse rn Dr. Daniel in 2-4 weeks Assessment: As above Discharge Date/Time: 02/12/23 11:58
--- NOTE | 2023-02-12 11:10 | PC.NURSE ---
pt decided to leave. looking out ED bay still in [facility] pointing at IV to be taken out. Dr. Puga discharged pt.
--- NOTE | 2023-02-12 11:32 | MHC.CM.PN ---
CM ATTEMPTED TO MEET W/ PATIENT FOR INTAKE AND DC. HOWEVER, PATIENT DECLINED TO COME TO FLOOR AND LEFT FROM ED. PER CHART REVIEW, PATIENT LIVES AT HOME W/ . ATTEMPTED TO CALL TO DELIVER IMM, NO ANSWER, IMM DELIVERED ON VM. COPY TO BE MAILED.
== END 2023-02-12 11:58 | disposition home or self-care (01) | DRG 379 ==
LOC: HO.ED 11:44 → HO.EDOVER 17:15 → HO.IMC 02-12 09:27
PROVIDERS: Physician Assistant Medical; Admitting Provider Physician Assistant; Emergency Provider Emergency Medicine; PCP Internal Medicine; Visit Provider Hospitalist
DX: K62.5 Hemorrhage of anus and rectum (principal); E11.42 Type 2 diabetes mellitus with diabetic polyneuropathy; I10 Essential (primary) hypertension; Z20.822 Contact with and (suspected) exposure to COVID-19; Z79.4 Long term (current) use of insulin; Z79.82 Long term (current) use of aspirin; Z79.84 Long term (current) use of oral hypoglycemic drugs; Z79.85 Long-term (current) use of injectable non-insulin antidiabetic drugs; Z79.899 Other long term (current) drug therapy
CPT/HCPCS: 0241U; 36415; 74178; 80048; 80053; 82272; 82947; 83690; 83735; 85025; 85610; 99285; C9113; J0131; J2704; Q9967

== ENCOUNTER → 2023-02-11 17:07 | Outpatient (BNV) | payer MEDICARE, OTHER, SELFPAY | PROVIDERS: Admitting Provider Physician Assistant; Emergency Provider Emergency Medicine; PCP Internal Medicine; Visit Provider Physician Assistant | DX: K92.2 Gastrointestinal hemorrhage, unspecified (principal) | CPT/HCPCS: 99223; 99239 ==

== ENCOUNTER → 2023-02-11 17:07 | Outpatient (BNV) | payer MEDICARE, OTHER, SELFPAY | PROVIDERS: Admitting Provider Physician Assistant; Emergency Provider Emergency Medicine; PCP Internal Medicine; Visit Provider Internal Medicine Gastroenterology | DX: K92.2 Gastrointestinal hemorrhage, unspecified (principal); R93.3 Abnormal findings on diagnostic imaging of other parts of digestive tract | CPT/HCPCS: 99223 ==

== ENCOUNTER 2023-02-22 15:24 | Outpatient (AMB) | payer MEDICARE, OTHER, SELFPAY ==
--- NOTE | 2023-02-22 15:25 | A.OFFVIS_ITS ---
Intake Vital Signs 02/22/23 15:34 BP 130/68 Blood Pressure Location Rt brachial Position Sitting Pulse 79 Intake Visit Reasons: Rectal bleeding, colonoscopy screening Intake Note: This patient presents for inpatient follow-up for rectal bleeding, colonoscopy screening. Patient c/o; reports no rectal bleeding Chemist Organic Required: No Accompanied by: Self / Same As Patient Allergies grass,trees etc Allergy (Unknown, Uncoded 02/22/23 15:26) Unknown HPI Rectal bleeding, colonoscopy screening HPI Details 77-year-old male here rectal bleeding. He was admitted to the hospital on 02/11/2023. At that time, he had described multiple episodes of passage of bright blood per rectum without stools. This was support to be liquid blood with clots. He says that this seemed to be ?spurting? from his anus itself. He was seen by a technology and engineering teacher who initially said that he can be discharged w ithout endoscopy or colonoscopy. However, he says a 2nd technology and engineering teacher came later that day who told him that he will be scheduled for colonoscopy and EGD by the technology and engineering teacher during that admission but he signed out against medical advise. He denied any abdominal pain . He describes 1 episode of nonbloody emesis at that time. He has had no further episodes of bright blood per rectum. He denies any abdominal pain at all. He has good oral intake. He says he actually feels well overall. His last colonoscopy was actually in 2008. He also had bleeding hemorrhoids and had undergone hemorrhoidectomy in 2018 [facility] Medical History (Updated 02/22/23 @ 15:32 by Bret Herring MD) Rectal bleeding Type 2 diabetes mellitus with obesity Obesity Benign prostatic hyperplasia with lower urinary tract symptoms Feeling of incomplete bladder emptying Nocturia Non-toxic multinodular goiter Dyslipidemia Hypertension Diabetic neuropathy associated with type 2 diabetes mellitus snf (current) use of insulin Diabetes type 2, controlled Diabetes mellitus Vitamin D deficiency Surgical History History of biopsy History of excision of lesion History of laminectomy History of appendectomy Family History Father Old age Mother Heart disease Social History Housing: House Alcohol intake: current Alcohol intake frequency: holidays/special occasions only Patient Tobacco Use Status: Former Tobacco user Tobacco use type: Cigarette e-Cigarette/Vaping Use: Never Used Second Hand Smoke Exposure: No service: No Current occupational status: retired Cognitive needs: No Hearing needs: No Vision needs: No Review of Systems Const Denies chills and Denies fever(s) Card Denies chest pain, Denies dyspnea and Denies dyspnea on exertion Resp Denies cough, Denies dyspnea and Denies dyspnea on exertion GI Reports hematochezia and Denies change in bowel habits Denies hematuria and Denies difficulty urinating Musc Denies back pain and Denies limited range of motion Neuro Denies focal weakness and Denies convulsions Psych Denies depression and Denies mood swings Physical Exam Const General: comfortable and no acute distress Orientation/consciousness: patient oriented x3 Neck Neck: Yes no lymphadenopathy Resp Auscultation: clear to auscultation bilaterally Cardio Rhythm: regular rhythm GI Palpation (GI): Soft to palpation, nontender and no guarding Neuro General: patient oriented x3 Assessment & Plan Assessment & Plan (1) Rectal bleeding: Code(s): K62.5 - Hemorrhage of anus and rectum Plan: He had passage of bright blood per rectum on February 11, 2023. He has had no further episodes since then. This appears to be more of outlet bleeding likely from his hemorrhoids. He is actually due for a colonoscopy as his last 1 was in 2008. He denies any epigastric pain or any abdominal pain I told him that I would therefore schedule him for a colonoscopy because of his rectal bleeding. I explained the technique of this procedure. I reviewed the risks including but not limited to bleeding, perforation, as well as the benefits and alternatives. He understands and wants to proceed. Coding Level of Care Code New Pt Level 3 (40592) Diagnoses Rectal bleeding K62.5
[2023-02-22 15:34] VITALS: BP 130/68; PULSE 79
== END 2023-02-22 15:44 | disposition home or self-care (01) ==
PROVIDERS: PCP Internal Medicine; Visit Provider Surgery
DX: K62.5 Hemorrhage of anus and rectum (principal)
CPT/HCPCS: 99203

== ENCOUNTER → 2023-02-22 15:24 | Outpatient (BNVA) | payer MEDICARE, OTHER, SELFPAY | PROVIDERS: PCP Internal Medicine; Visit Provider Surgery | DX: K62.5 Hemorrhage of anus and rectum (principal) | CPT/HCPCS: 99202 ==

== ENCOUNTER 2023-04-07 07:16 | Outpatient (REF) | payer MEDICARE, OTHER, SELFPAY ==
[2023-04-07 07:42] LABS: MANUAL DIFF FLAG NO
[2023-04-07 08:01] LABS: Basophils Absolute Auto 0.1 X10*3/uL (0.0-0.2); Basophils Percent Auto 0.7 % (0-2); Eosinophils Absolute Auto 0.3 X10*3/uL (0.0-0.4); Eosinophils Percent Auto 3.8 % (0-4); Hematocrit 45.5 % (42.0-52.0); Hemoglobin 15.2 g/dl (14.0-18.0); Imm Gran Abs Auto 0.03 X10*3/uL (0.00-0.03); Imm Gran Pct Auto 0.4 % (0.0-0.4); Lymphocytes Absolute Auto 1.9 X10*3/uL (1.2-4.9); Lymphocytes Percent Auto 26.2 % (20-40); Mean Corpuscular HGB Conc 33.4 g/dl (31.0-36.0); Mean Corpuscular Hemoglobin 29.5 pg (27.0-33.0); Mean Corpuscular Volume 88.3 fL (80.0-98.0); Mean Platelet Volume 11.1 fL (9.4-12.4); Monocytes Absolute Auto 0.6 X10*3/uL (0.1-1.2); Monocytes Percent Auto 8.9 % (2-11); Neutrophils Absolute Auto 4.2 x10*3/uL (2.0-8.3); Platelet Count 231 X10*3/uL (160-400); Red Blood Count 5.15 X10*6/uL (4.60-5.80); Red Cell Distribution Width 13.9 % (11.0-16.0); White Blood Count 7.1 X10*3/uL (4.8-10.8)
[2023-04-07 08:14] LABS: Estimated Average Glucose 128 mg/dL; Hemoglobin A1c % 6.1 % (<6.0)
[2023-04-07 08:51] LABS: Alanine Aminotransferase 17 U/L (0-40); Albumin Level 4.2 g/dL (3.5-5.0); Alkaline Phosphatase 57 U/L (39-117); Anion Gap 15 (12-20); Aspartate Amino Transferase 14 U/L (5-37); Bilirubin Total 0.7 mg/dL (0.0-1.0); Blood Urea Nitrogen 13 mg/dL (9-16); Calcium 9.5 mg/dL (8.4-10.2); Carbon Dioxide 28 mmol/L (22-29); Chloride 102 mmol/L (96-108); Cholesterol 158 mg/dL (<200); Estimated Glomerular Filt Rate 54; Glucose Fasting 109 mg/dL (60-99); HDL Cholesterol 52 mg/dL (>40); LDL Cholesterol Calculated 82 mg/dL (<100); Potassium 3.7 mmol/L (3.3-5.1); Sodium 141 mmol/L (135-145); Total Protein 7.2 g/dL (6.5-8.0); Triglycerides 124 mg/dL (<150)
[2023-04-07 09:15] LABS: Creatinine Urine 148.46 mg/dL
== END 2023-04-07 07:17 | disposition home or self-care (01) ==
LOC: HO.LAB 07:16
PROVIDERS: PCP Internal Medicine; Visit Provider Internal Medicine
DX: E11.65 Type 2 diabetes mellitus with hyperglycemia (principal); E11.69 Type 2 diabetes mellitus with other specified complication; N28.9 Disorder of kidney and ureter, unspecified; E66.01 Morbid (severe) obesity due to excess calories; D64.9 Anemia, unspecified; E78.5 Hyperlipidemia, unspecified
CPT/HCPCS: 36415; 80053; 80061; 82043; 82570; 83036; 85025

== ENCOUNTER 2023-04-11 09:23 | Outpatient (AMB) | payer MEDICARE, OTHER, SELFPAY ==
[2023-04-11 09:25] VITALS: BP 102/60; PULSE 75; O2SAT 98; BMI 32.3
--- NOTE | 2023-04-11 09:25 | MHC.PC.OV ---
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 Required: No Clinical Resource Manager: Not Required per policy Accompanied by: Self / Same As Patient Allergies grass,trees etc Allergy (Unknown, Uncoded 04/11/23 09:25) Unknown Medication List - Last Reconciled 04/11/23 by Peewee Pan MD amlodipine 5 mg PO DAILY 90 days aspirin (Adult Low Dose Aspirin) 81 mg PO DAILY cholecalciferol (vitamin D3) 50 mcg PO DAILY 90 days dulaglutide (Trulicity) 1.5 mg subcut MO@0900 insulin degludec (Tresiba FlexTouch U-100 insulin) 20 units (0.2 mL) subcut DAILY 90 days lisinopril-hydrochlorothiazide 20-12.5 mg 1 tab PO BID lovastatin 40 mg PO DAILY 90 days metformin 1,000 mg PO BEDTIME omeprazole 20 mg PO BID pen needle, diabetic As directed sodium,potassium,mag sulfates 17.5-3.13-1.6 gram (Suprep Bowel Prep Kit) DILUTE; drink full amount early evening before AND next morning at least 2 hr before procedure; follow w 960 mL water PO Tobacco use date assessed: 04/11/23 Fall risk assessment: No Falls in past year Last assessed Fall Risk: 04/11/23 Dental Screening Dental Screen Date: 04/11/23 Did you have a dental visit in the last 12 months?: Yes Did you have a dental problem in the last 6 months where you did not have access to dental care?: No Was dental information given to patient?: Patient has dentist HPI 3mth f/u HPI Details HTN DM and hyperlip on rx; doing well; compliant [facility] Medical History (Updated 02/22/23 @ 15:32 by Bret Herring MD) Rectal bleeding Type 2 diabetes mellitus with obesity Obesity Benign prostatic hyperplasia with lower urinary tract symptoms Feeling of incomplete bladder emptying Nocturia Non-toxic multinodular goiter Dyslipidemia Hypertension Diabetic neuropathy associated with type 2 diabetes mellitus 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 Diabetes type 2, controlled Diabetes mellitus Vitamin D deficiency Surgical History History of biopsy History of excision of lesion History of laminectomy History of appendectomy Family History Father Old age Mother Heart disease Social History Housing: House Alcohol intake: current Alcohol intake frequency: holidays/special occasions only Patient Tobacco Use Status: Former Tobacco user Tobacco use type: Cigarette e-Cigarette/Vaping Use: Never Used Second Hand Smoke Exposure: No service: No Current occupational status: retired Cognitive needs: No Hearing needs: No Vision needs: Yes Questionnaire PHQ-9 Over the last 2 weeks, how often have you been bothered by any of the following problems? 1. Little interest or pleasure in doing things: not at all 2. Feeling down, depressed, or hopeless: not at all 3. Trouble falling or staying asleep, or sleeping too much: not at all 4. Feeling tired or having little energy: not at all 5. Poor appetite or overeating: not at all 6. Feeling bad about yourself - or that you are a failure or have let yourself or your family down: not at all 7. Trouble concentrating on things, such as reading the newspaper or watching television: not at all 8. Moving or speaking so slowly that other people could have noticed. Or the opposite - being so fidgety or restless that you have been moving around a lot more than usual: not at all 9. Thoughts that you would be better off or of hurting yourself in some way: not at all Total score: 0 Depression Screening Interpretation: Negative Depression Screening Done: Yes 26573 - PHQ-9 Billing: Yes Source: Developed by Drs. Filiberto Smith, Zofia Fonseca, Mohan Tello and colleagues, with an educational geoff from [employer]. Thrive Questionnaire Date Thrive assessed: 04/11/23 I am a: Patient What is your living situation today?: I have a steady place to live Within the past 12 months, did the food you bought not last and you didn't have the money to get more?: Never true Within the past 12 months, did you worry whether your food would run out before you got money to buy more?: Never true Do you have trouble paying for medicines?: No Do you have trouble getting transportation to medical appointments?: No Do you have trouble paying your heating and electricity bill?: No Do you have trouble taking care of your child, family member or friend?: No Do you have trouble with day-to-day activities such as bathing, preparing meals, shopping, managing finances, etc.?: No Are you currently unemployed and looking for a job?: No Are you interested in more education?: No Please select the resources that you would like help with: None THRIVE Score: 0 AUDIT C Alcohol Use Questionnaire (AUDIT-C) 1. How often do you have a drink containing alcohol?: Monthly or less 2. How many drinks containing alcohol do you have on a typical day when you are drinking?: 1 or 2 3. How often do you have six or more drinks on one occasion?: Never Total Score: 1 Score Reviewed/Action Taken: Yes BRIAN-7 AMB Questionnaire BRIAN-7 Date BRIAN - 7 assessed: 04/11/23 Feeling nervous, anxious, or on edge: 0 = Not at all Not being able to stop or control worryin = Not at all Worrying too much about different things: 0 = Not at all Trouble relaxin = Not at all Being so restless that it is hard to sit still: 0 = Not at all Becoming easily annoyed or irritable: 0 = Not at all Feeling afraid as if something awful might happen: 0 = Not at all Total BRIAN-7 score (0-4 normal; 5-9 mild; 10-14 moderate; 15-21 severe): 0 Source: Developed by Drs. Filiberto Smith, Zofia Fonseca, Mohan Tello and colleagues, with an educational geoff from [employer]. BRIAN-7 Assessment Billing BRIAN-7 Assessment Tool: BRIAN-7 Assessment 24953 Review of Systems Const Denies chills, Denies headache(s) and Denies weight loss ENT Denies headache(s) Card Denies chest pain, Denies syncope, Denies irregular heart rhythm and Denies dyspnea Resp Denies chest congestion, Denies cough and Denies dyspnea GI Denies abdominal pain, Denies change in stool character, Denies nausea and Denies vomiting Musc Denies deformity and Denies joint swelling Neuro Denies syncope and Denies headache(s) Physical exam (Primary Care) Vital Signs: Last Vital Signs Pulse 75 04/11/23 09:25 BP 102/60 04/11/23 09:25 Pulse Ox 98 04/11/23 09:25 Oxygen Delivery Method Room Air 04/11/23 09:25 BMI result Body Mass Index 32.3 Tobacco/Smoking Status: Tobacco use Status Tobacco use date assessed 04/11/23 04/11/23 09:26 Patient Tobacco Use Status Former Tobacco user 04/11/23 09:26 Tobacco use type Cigarette 04/11/23 09:26 e-Cigarette/Vaping Use Never Used 04/11/23 09:26 PHQ-9: PHQ-9 Score PHQ-9: Total score 0 04/11/23 09:26 Depression Screening Interpretation: Negative Thrive Assessment: Date of Thrive Assessment Date Thrive assessed 04/11/23 04/11/23 09:26 Const General: cooperative, comfortable, no acute distress and alert Neck Neck: Yes no lymphadenopathy Thyroid: Thyroid normal Resp Effort & Inspection: normal respiratory effort Auscultation: clear to auscultation bilaterally Percussion: percussion normal Cardio Jugular venous distension: no JVD Palpation: normal PMI Rate: regular rate Rhythm: regular rhythm Heart sounds: S1 normal heart sound present and S2 normal heart sound present GI Inspection: Yes normal to inspection Palpation (GI): No hepatosplenomegaly present Skin General skin exam: no rashes or lesions noted Extrem General: Yes no clubbing, cyanosis or edema Assessment and Plan Assessment & Plan (1) Type 2 diabetes mellitus with obesity: Code(s): E11.69 - Type 2 diabetes mellitus with other specified complication; E66.9 - Obesity, unspecified Plan: stable; same rx (2) Dyslipidemia: Code(s): E78.5 - Hyperlipidemia, unspecified Plan: stable; same rx (3) Hypertension: Code(s): I10 - Essential (primary) hypertension Plan: stable; same rx Orders: Orders Hemoglobin A1c Today R73.9 - Hyperglycemia, unspecified Lipid Panel Today E78.5 - Hyperlipidemia, unspecified Glucose Fasting Today R73.9 - Hyperglycemia, unspecified Coding Level of Care Code Est Pt Level 4 (03905) Diagnoses Type 2 diabetes mellitus with obesity E11.69; E66.9 Dyslipidemia E78.5 Hypertension I10 Additional Codes BRIAN-7 Assessment Billing - BRIAN-7 Assessment Tool: BRIAN-7 Assessment [id number] ([id number])
== END 2023-04-11 09:43 | disposition home or self-care (01) ==
PROVIDERS: PCP Internal Medicine; Visit Provider Internal Medicine
DX: E11.69 Type 2 diabetes mellitus with other specified complication (principal); E66.9 Obesity, unspecified; E78.5 Hyperlipidemia, unspecified; Z68.32 Body mass index [BMI] 32.0-32.9, adult; I10 Essential (primary) hypertension
CPT/HCPCS: 99214

== ENCOUNTER 2023-04-14 07:15 | Day surgery (SDC) | payer MEDICARE, OTHER, SELFPAY ==
--- NOTE | 2023-04-12 15:11 | P.CONAN_ITS ---
HPI - Anesthesia Eval Consult details Narrative: 77yo M for Colonoscopy, possible polypectomy Anesthesia Pre-Procedure Meds Is the patient on any of the following meds?: Dulaglutide (Trulicity) If Yes to any meds - educate patient: Pt education - increased risk of aspiration and Pt education - possibility of cancelled proc at provider's discretion PMFSH Active Problems Active Problems: All Active Problems (Updated 02/22/23 @ 15:32 by Bret Herring MD) Rectal bleeding (Acute) Abnormal CT scan, gastrointestinal tract (Acute) Former smoker (Acute) History of smoking 30 or more pack years (Acute) Medicare annual wellness visit, initial (Acute) Type 2 diabetes mellitus with obesity (Acute) Obesity (Acute) Benign prostatic hyperplasia with lower urinary tract symptoms (Acute) Physical exam (Acute) Non-toxic multinodular goiter (Acute) Dyslipidemia (Acute) Hypertension (Acute) Diabetic neuropathy associated with type 2 diabetes mellitus (Acute) 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 (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) Diabetes type 2, controlled (Acute) Diabetes mellitus (Acute) Vitamin D deficiency (Acute) Past Medical History Medical History Rectal bleeding Type 2 diabetes mellitus with obesity Obesity Benign prostatic hyperplasia with lower urinary tract symptoms Feeling of incomplete bladder emptying Nocturia Non-toxic multinodular goiter Dyslipidemia Hypertension Diabetic neuropathy associated with type 2 diabetes mellitus nursing home (current) use of insulin Diabetes type 2, controlled Diabetes mellitus Vitamin D deficiency Family History Family History Father Old age Mother Heart disease Surgical History Surgical History History of biopsy History of excision of lesion History of laminectomy History of appendectomy Social History Social History Housing: House Alcohol intake: current Alcohol intake frequency: holidays/special occasions only Patient Tobacco Use Status: Former Tobacco user Quit Date: 20 years Tobacco use type: Cigarette e-Cigarette/Vaping Use: Never Used Second Hand Smoke Exposure: No service: No Current occupational status: retired Cognitive needs: No Hearing needs: No Vision needs: Yes Meds Allergies Allergy/AdvReac Type Severity Reaction Status Date / Time grass,trees etc Allergy Unknown Unknown Uncoded 04/11/23 09:25 Home Medications Medication Instructions Recorded Confirmed Last Taken Type aspirin 81 mg tablet,delayed 81 mg PO DAILY 12/23/19 04/14/23 02/10/23 09:00 History release (Adult Low Dose Aspirin) dulaglutide 1.5 mg/0.5 mL 1.5 mg subcut MO@0900 02/11/23 04/14/23 04/03/23 History subcutaneous pen injector (Trulicity) metformin 1,000 mg tablet 1,000 mg PO BEDTIME 02/11/23 04/14/23 02/09/23 History Exam Pertinent Lab Results Pertinent Lab Results: Laboratory Tests 04/07/23 07:41 WBC 7.1 Hgb 15.2 Hct 45.5 Plt Count 231 D Sodium 141 Potassium 3.7 Chloride 102 Carbon Dioxide 28 BUN 13 Creatinine 1.30 Assessment and Plan Assessment Anesthesia Assessment: Chart Reviewed
[2023-04-14 07:33] VITALS: BP 128/69; PULSE 93; RESP 18; TEMP 36.1; O2SAT 95; BMI 32.3
[2023-04-14 07:46] LABS: Glucose, Whole Blood 143 mg/dL (60-115)
--- NOTE | 2023-04-14 08:06 | MHC.SHP ---
Pre-Procedural Eval Section A - 24 Hr Update-Section A only Date of Service: 04/14/23 Section B - Complete if H&P > 30 days Chief Complaint: Hemorrhage of anus and rectum Details of Present Illness: had passage of bright blood per rectum last January 2023; last colonoscopy was in 2018, with hemorrhoids seen Relevant Family History (Specify if Yes): No Relevant Social History: None Present Medications: see Short Stay Collaborative assessment Medical History: Significant History (ex smoker, BPH, DM) Allergies: Allergies Allergy/AdvReac Type Severity Reaction Status Date / Time grass,trees etc Allergy Unknown Unknown Uncoded 04/11/23 09:25 Review of Systems Sugical H&P ROS: Negative: Constitution, Cardiovascular, Respiratory, Neurological, Psychiatric, Hem-Onc, Allergic/Immunologic, Genitourinary, Musculoskeletal, Integumentary, Endocrine and Eyes/Ears/Nose/Throat and Yes, Specify: Gastrointestinal (hx of blood per rectum) Exam Surgical H&P Exam: Normal: HEENT, Normal: Heart, Normal: Lungs, Normal: Extremities, Normal: Abdomen, Normal: Skin and Normal: Neurological Plan Diagnosis/Plan: Unchanged I have reviewed the history and physical and performed a pertinent physical examination on my patient. No changes have occurred unless specified. Time Spent With Patient Time: Total time managing care of this patient today ____ minutes.
--- NOTE | 2023-04-14 08:12 | HO.ANESPROP2 ---
[facility] Active Problems Active Problems: All Active Problems (Updated 02/22/23 @ 15:32 by Bret Herring MD) Rectal bleeding (Acute) Abnormal CT scan, gastrointestinal tract (Acute) Former smoker (Acute) History of smoking 30 or more pack years (Acute) Medicare annual wellness visit, initial (Acute) Type 2 diabetes mellitus with obesity (Acute) Obesity (Acute) Benign prostatic hyperplasia with lower urinary tract symptoms (Acute) Physical exam (Acute) Non-toxic multinodular goiter (Acute) Dyslipidemia (Acute) Hypertension (Acute) Diabetic neuropathy associated with type 2 diabetes mellitus (Acute) 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) Diabetes type 2, controlled (Acute) Diabetes mellitus (Acute) Vitamin D deficiency (Acute) Past Medical History Medical History Rectal bleeding Type 2 diabetes mellitus with obesity Obesity Benign prostatic hyperplasia with lower urinary tract symptoms Feeling of incomplete bladder emptying Nocturia Non-toxic multinodular goiter Dyslipidemia Hypertension Diabetic neuropathy associated with type 2 diabetes mellitus half-way (current) use of insulin Diabetes type 2, controlled Diabetes mellitus Vitamin D deficiency Functional capacity: independent ambulation Family History Family History Father Old age Mother Heart disease Family history of problems with anesthesia: No Surgical History Surgical History History of biopsy History of excision of lesion History of laminectomy History of appendectomy History of Problems with Anesthesia: Yes (muscle aching after anesthesia) Social History Social History Housing: House Alcohol intake: current Alcohol intake frequency: holidays/special occasions only Patient Tobacco Use Status: Former Tobacco user Quit Date: 20 years Tobacco use type: Cigarette e-Cigarette/Vaping Use: Never Used Second Hand Smoke Exposure: No Use of substances other than those prescribed or required for medical reasons: No Are you DNR?: No Advance Directives: No Advance Directives Information Provided: Yes service: No Current occupational status: retired Cognitive needs: No Hearing needs: No Vision needs: Yes Meds Allergies Allergy/AdvReac Type Severity Reaction Status Date / Time grass,trees etc Allergy Unknown Unknown Uncoded 04/11/23 09:25 Active Medications: Current Medications Lactated Ringer's (Lr) 1,000 mls @ 100 mls/hr IVCONT .Q10H [facility] Home Medications Medication Instructions Recorded Confirmed Last Taken Type aspirin 81 mg tablet,delayed 81 mg PO DAILY 12/23/19 04/14/23 02/10/23 09:00 History release (Adult Low Dose Aspirin) dulaglutide 1.5 mg/0.5 mL 1.5 mg subcut MO@0900 02/11/23 04/14/23 04/03/23 History subcutaneous pen injector (Trulicity) metformin 1,000 mg tablet 1,000 mg PO BEDTIME 02/11/23 04/14/23 02/09/23 History Exam Height,Weight and Vital Signs: Height 6 ft 1 in Weight 111.039 kg Last Vital Signs Temp 97.0 F 04/14/23 07:33 Pulse 93 04/14/23 07:33 Resp 18 04/14/23 07:33 BP 128/69 04/14/23 07:33 Pulse Ox 95 04/14/23 07:33 O2 Del Method Room Air 04/14/23 07:33 Pertinent Lab Results Pertinent Lab Results: Laboratory Tests 04/14/23 07:42 POC Glucose 143 H Airway Mallampati Class: III TM Dist: >3cm Neck ROM: Full Heart: RRR Lungs: CTA Assessment and Plan Assessment Anesthesia Assessment: Anesthesia Plan Discussed Final Anesthetic Review Family History of Problems with Anesthesia: No History of Problems with Anesthesia: Yes (muscle aching after anesthesia) NPO: Yes ASA Class: III Final Preanesthetic Review: Meds/Allgs Chart Reviewed, Consent Obtained/Reviewed and Anes Risks/Benef Reviewed Patient Risk: Intermediate Procedure Risk: Low Anesthetic Plan Anesthetic Plan: MAC: Disposition: Standard PACU
--- NOTE | 2023-04-14 08:41 | W.PM.OPN ---
Operative Note Operative Note Date of Service: 04/14/23 Narrative: Preop diagnosis: Recent rectal bleeding Postop diagnosis: 1. Occasional diverticulosis 2. Small internal and external hemorrhoids Procedure: Colonoscopy Surgeon: Bret Herring MD The patient is a 77-year-old male who had passage of bright blood per rectum. He was referred to me for colonoscopy. He understood the technique of the planned procedure as well as the risks, benefits, and alternatives. He was brought to the operating room. He was placed in left lateral decubitus position under monitored anesthesia care. A surgical time-out was done. A full digital rectal exam was done. There are no palpable anal lesions . The scope was gently inserted into the anal opening and advanced with insufflation gently all the way to the cecum. The cecum was intubated. The cecum was identified by visualization of the ileocecal valve as well as the appendiceal orifice. The cecal mucosa was unremarkable. The scope was gradually withdrawn with careful examination of the entire colonic mucosa with scope withdrawal. The patient had good bowel prep so it was unlikely that any lesion may have been missed. There was of occasional diverticuli in the left colon and sigmoid. The rectum was reached. There were no lesions seen. The anal canal was unremarkable although he did have-small internal external hemorrhoids. The scope was then withdrawn completely with desufflation. The patient tolerated the procedure well. There were no immediate complications. This may likely be his last colonoscopy in the of his age.
[2023-04-14 08:48] VITALS: BP 94/66; PULSE 69; RESP 16; TEMP 36.1; O2SAT 93
[2023-04-14 09:03] VITALS: BP 99/62; PULSE 72; RESP 16; O2SAT 95
[2023-04-14 09:18] VITALS: BP 102/62; PULSE 76; RESP 16; O2SAT 95
[2023-04-14 09:33] VITALS: BP 110/78; PULSE 76; RESP 18; TEMP 36.2; O2SAT 96
== END 2023-04-14 09:51 | disposition home or self-care (01) ==
PROVIDERS: PCP Internal Medicine; Visit Provider Surgery
PROC: 0DJD8ZZ Inspection of Lower Intestinal Tract, Via Natural or Artificial Opening Endoscopic (ICD-10-PCS; CPT 45378; principal; 2023-04-14 08:30)
DX: K62.5 Hemorrhage of anus and rectum (principal); K57.30 Diverticulosis of large intestine without perforation or abscess without bleeding; K64.8 Other hemorrhoids; K64.4 Residual hemorrhoidal skin tags; I10 Essential (primary) hypertension; E11.40 Type 2 diabetes mellitus with diabetic neuropathy, unspecified; E66.9 Obesity, unspecified; N40.1 Benign prostatic hyperplasia with lower urinary tract symptoms; R39.14 Feeling of incomplete bladder emptying; R35.1 Nocturia; Z79.4 Long term (current) use of insulin; Z79.84 Long term (current) use of oral hypoglycemic drugs; Z79.85 Long-term (current) use of injectable non-insulin antidiabetic drugs; Z79.82 Long term (current) use of aspirin; Z98.890 Other specified postprocedural states; Z87.891 Personal history of nicotine dependence
CPT/HCPCS: 45378; 82947; J2704

== ENCOUNTER → 2023-04-14 07:15 | Outpatient (BNV) | payer MEDICARE, OTHER, SELFPAY | PROVIDERS: PCP Internal Medicine; Visit Provider Surgery | DX: K57.90 Diverticulosis of intestine, part unspecified, without perforation or abscess without bleeding (principal); K64.8 Other hemorrhoids; K62.5 Hemorrhage of anus and rectum | CPT/HCPCS: 45378 ==

== ENCOUNTER 2023-04-27 09:53 | Outpatient (AMB) | payer MEDICARE, OTHER, SELFPAY ==
[2023-04-27 10:05] VITALS: BP 121/63; PULSE 83
--- NOTE | 2023-04-27 10:05 | A.OFFVIS_ITS ---
Intake Vital Signs 04/27/23 10:05 Weight 247 lb BP 121/63 Blood Pressure Location Lt brachial Position Sitting Pulse 83 Intake Visit Reasons: S/P colonoscopy Intake Note: This patient presents for a follow-up assessment status post colonoscopy. Pt c/o; no concerns. Reports procedure went well. 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 He tolerated procedure well. He denies significant complaints. He feels well overall. [facility] Medical History Rectal bleeding Type 2 diabetes mellitus with obesity Obesity Benign prostatic hyperplasia with lower urinary tract symptoms Feeling of incomplete bladder emptying Nocturia Non-toxic multinodular goiter Dyslipidemia Hypertension Diabetic neuropathy associated with type 2 diabetes mellitus snf (current) use of insulin Diabetes type 2, controlled Diabetes mellitus Vitamin D deficiency Surgical History History of biopsy History of excision of lesion History of laminectomy History of appendectomy Family History Father Old age Mother Heart disease Social History Housing: House Alcohol intake: current Alcohol intake frequency: holidays/special occasions only Patient Tobacco Use Status: Former Tobacco user Quit Date: 20 years Tobacco use type: Cigarette e-Cigarette/Vaping Use: Never Used Second Hand Smoke Exposure: No service: No Current occupational status: retired Cognitive needs: No Hearing needs: No Vision needs: Yes Review of Systems Const Denies chills and Denies fever(s) Card Denies chest pain, Denies dyspnea and Denies dyspnea on exertion Resp Denies cough, Denies dyspnea and Denies dyspnea on exertion GI Denies hematochezia and Denies change in bowel habits Denies hematuria and Denies difficulty urinating Musc Denies back pain and Denies limited range of motion Neuro Denies focal weakness and Denies convulsions Psych Denies depression and Denies mood swings Physical Exam Vital Signs: Last Vital Signs Pulse 83 04/27/23 10:05 BP 121/63 04/27/23 10:05 Const General: comfortable and no acute distress Resp Effort & Inspection: normal respiratory effort GI Palpation (GI): Soft to palpation, not firm and nontender Assessment & Plan Assessment & Plan (1) Rectal bleeding: Code(s): K62.5 - Hemorrhage of anus and rectum Plan: Status post colonoscopy on 04/14/2023. He did well overall. I found diverticulosis and internal and external hemorrhoids. He is rectal bleeding is likely to be from an outlet source with this hemorrhoids. He feels well. He can follow up on a p.r.n. basis. He may not need another screening colonoscopy from here on in view of his age. Coding Level of Care Code Est Pt Level 2 (31558) Diagnoses Rectal bleeding K62.5
== END 2023-04-27 10:33 | disposition home or self-care (01) ==
PROVIDERS: PCP Internal Medicine; Visit Provider Surgery
DX: K62.5 Hemorrhage of anus and rectum (principal)
CPT/HCPCS: 99212

== ENCOUNTER → 2023-04-27 09:53 | Outpatient (BNVA) | payer MEDICARE, OTHER, SELFPAY | PROVIDERS: PCP Internal Medicine; Visit Provider Surgery | DX: K62.5 Hemorrhage of anus and rectum (principal) | CPT/HCPCS: 99212 ==

== ENCOUNTER 2023-07-18 06:57 | Outpatient (REF) | payer MEDICARE, OTHER, SELFPAY ==
[2023-07-18 08:46] LABS: Cholesterol 151 mg/dL (<200); Glucose Fasting 130 mg/dL (60-99); HDL Cholesterol 57 mg/dL (>40); LDL Cholesterol Calculated 72 mg/dL (<100); Triglycerides 112 mg/dL (<150)
[2023-07-18 09:09] LABS: Estimated Average Glucose 137 mg/dL; Hemoglobin A1c % 6.4 % (<6.0)
== END 2023-07-18 06:58 | disposition home or self-care (01) ==
LOC: HO.LAB 06:57
PROVIDERS: PCP Internal Medicine; Visit Provider Internal Medicine
DX: E78.5 Hyperlipidemia, unspecified (principal); R73.9 Hyperglycemia, unspecified
CPT/HCPCS: 36415; 80061; 82947; 83036

== ENCOUNTER 2023-08-09 11:32 | Outpatient (AMB) | payer MEDICARE, OTHER, SELFPAY ==
--- NOTE | 2023-08-09 11:39 | A.OFFPC_ITS ---
Vital Signs 08/09/23 11:40 Height 6 ft 1 in Weight 251 lb BMI 33.1 BP 120/74 Blood Pressure Location Lt brachial Position Sitting Pulse 70 Pulse Source Pulse Oximeter Pulse Oximetry (%) 97 Oxygen Delivery Method Room Air Intake Visit Reasons: 3 month f/u Brand Marketing Intern Required: No Hoop Puncher: Not Required per policy Accompanied by: Self / Same As Patient Allergies grass,trees etc Allergy (Unknown, Uncoded 08/09/23 11:40) Unknown Medication List - Last Reconciled 08/10/23 by Peewee Pan MD amlodipine 5 mg PO DAILY 90 days aspirin (Adult Low Dose Aspirin) 81 mg PO DAILY cholecalciferol (vitamin D3) 50 mcg PO DAILY 90 days dulaglutide (Trulicity) 3 mg subcut MO@0900 dulaglutide (Trulicity) 1.5 mg (0.5 mL) subcut QWEEK 90 days insulin degludec (Tresiba FlexTouch U-100 insulin) 20 units (0.2 mL) subcut DAILY 90 days lisinopril-hydrochlorothiazide 20-12.5 mg 1 tab PO BID lovastatin 40 mg PO DAILY 90 days metformin 1,000 mg PO BEDTIME omeprazole 20 mg PO BID pen needle, diabetic As directed Tobacco use date assessed: 04/11/23 Fall risk assessment: No Falls in past year Last assessed Fall Risk: 08/09/23 Dental Screening Dental Screen Date: 04/11/23 HPI 3 month f/u HPI0 Details DM HTN and hyperlip; doing well and compliant [facility] Medical History (Updated 08/10/23 @ 09:19 by Peewee Pan MD) Rectal bleeding Type 2 diabetes mellitus with obesity Obesity Benign prostatic hyperplasia with lower urinary tract symptoms Feeling of incomplete bladder emptying Nocturia Non-toxic multinodular goiter Dyslipidemia Hypertension 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 Diabetes type 2, controlled Diabetes mellitus Vitamin D deficiency Surgical History History of biopsy History of excision of lesion History of laminectomy History of appendectomy Family History Father Old age Mother Heart disease Social History Housing: House Alcohol intake: current Alcohol intake frequency: holidays/special occasions only Patient Tobacco Use Status: Former Tobacco user Tobacco use type: Cigarette e-Cigarette/Vaping Use: Never Used Second Hand Smoke Exposure: No service: No Current occupational status: retired Cognitive needs: No Hearing needs: No Vision needs: Yes Questionnaire Thrive Questionnaire Date Thrive assessed: 04/11/23 BRIAN-7 AMB Questionnaire BRIAN-7 Date BRIAN - 7 assessed: 04/11/23 Source: Developed by Drs. Filiberto Smith, Zofia Fonseca, Mohan Tello and colleagues, with an educational geoff from [employer]. Review of Systems Const Denies chills, Denies headache(s) and Denies weight loss ENT Denies headache(s) Card Denies chest pain, Denies syncope, Denies irregular heart rhythm and Denies dyspnea Resp Denies chest congestion, Denies cough and Denies dyspnea GI Denies abdominal pain, Denies change in stool character, Denies nausea and Denies vomiting Musc Denies deformity and Denies joint swelling Neuro Denies syncope and Denies headache(s) Physical exam (Primary Care) Vital Signs: Last Vital Signs Pulse 70 08/09/23 11:40 BP 120/74 08/09/23 11:40 Pulse Ox 97 08/09/23 11:40 Oxygen Delivery Method Room Air 08/09/23 11:40 BMI result Body Mass Index 33.1 Tobacco/Smoking Status: Tobacco use Status Tobacco use date assessed 04/11/23 08/09/23 11:45 Patient Tobacco Use Status Former Tobacco user 08/09/23 11:45 Tobacco use type Cigarette 08/09/23 11:45 e-Cigarette/Vaping Use Never Used 08/09/23 11:45 Thrive Assessment: Date of Thrive Assessment Date Thrive assessed 04/11/23 08/09/23 11:45 Const General: cooperative, comfortable, no acute distress and alert Neck Neck: Yes no lymphadenopathy Thyroid: Thyroid normal Resp Effort & Inspection: normal respiratory effort Auscultation: clear to auscultation bilaterally Percussion: percussion normal Cardio Jugular venous distension: no JVD Palpation: normal PMI Rate: regular rate Rhythm: regular rhythm Heart sounds: S1 normal heart sound present and S2 normal heart sound present GI Inspection: Yes normal to inspection Palpation (GI): No hepatosplenomegaly present Skin General skin exam: no rashes or lesions noted Extrem General: Yes no clubbing, cyanosis or edema Assessment and Plan Assessment & Plan (1) Dyslipidemia: Code(s): E78.5 - Hyperlipidemia, unspecified Plan: stable; same rx (2) Hypertension: Code(s): I10 - Essential (primary) hypertension Plan: stable; same rx (3) Diabetes type 2, controlled: Code(s): E11.9 - Type 2 diabetes mellitus without complications Plan: stable; same rx Orders: Orders Glucose Fasting Today R73.9 - Hyperglycemia, unspecified Lipid Panel Today Z13.220 - Encounter for screening for lipoid disorders Hemoglobin A1c Today R73.9 - Hyperglycemia, unspecified Coding Level of Care Code Est Pt Level 4 (62093) Diagnoses Dyslipidemia E78.5 Hypertension I10 Diabetes type 2, controlled E11.9
[2023-08-09 11:40] VITALS: BP 120/74; PULSE 70; O2SAT 97; BMI 33.1
== END 2023-08-09 11:52 | disposition home or self-care (01) ==
PROVIDERS: PCP Internal Medicine; Visit Provider Internal Medicine
DX: E78.5 Hyperlipidemia, unspecified (principal); I10 Essential (primary) hypertension; E11.9 Type 2 diabetes mellitus without complications
CPT/HCPCS: 99214

== ENCOUNTER 2023-11-03 07:21 | Outpatient (REF) | payer MEDICARE, OTHER, SELFPAY ==
[2023-11-03 08:05] LABS: Estimated Average Glucose 146 mg/dL; Hemoglobin A1c % 6.7 % (<6.0)
[2023-11-03 08:30] LABS: Cholesterol 167 mg/dL (<200); Glucose Fasting 129 mg/dL (60-99); HDL Cholesterol 59 mg/dL (>40); LDL Cholesterol Calculated 84 mg/dL (<100); Triglycerides 123 mg/dL (<150)
== END 2023-11-03 07:22 | disposition home or self-care (01) ==
LOC: HO.LAB 07:21
PROVIDERS: PCP Internal Medicine; Visit Provider Internal Medicine
DX: R73.9 Hyperglycemia, unspecified (principal); Z13.220 Encounter for screening for lipoid disorders
CPT/HCPCS: 36415; 80061; 82947; 83036

== ENCOUNTER 2023-11-10 10:22 | Outpatient (AMB) | payer MEDICARE, OTHER, SELFPAY ==
[2023-11-10 10:26] VITALS: BP 126/70; PULSE 66; O2SAT 96; BMI 33.1
--- NOTE | 2023-11-10 10:26 | A.OFFPC_ITS ---
Vital Signs 11/10/23 10:26 Height 6 ft 1 in Weight 251 lb BMI 33.1 BP 126/70 Blood Pressure Location Lt brachial Position Sitting Pulse 66 Pulse Source Pulse Oximeter Pulse Oximetry (%) 96 Oxygen Delivery Method Room Air Intake Visit Reasons: 3 Month F/U Intake Note: Pt reports being unable to get his Trulicity, pharmacy is out of it. Engineering Inspector Required: No Accompanied by: Self / Same As Patient Allergies grass,trees etc Allergy (Unknown, Uncoded 11/10/23 10:28) Unknown Medication List - Last Reconciled 11/13/23 by Peewee Pan MD amlodipine 5 mg PO DAILY 90 days aspirin (Adult Low Dose Aspirin) 81 mg PO DAILY cholecalciferol (vitamin D3) 50 mcg PO DAILY 90 days dulaglutide (Trulicity) 3 mg subcut MO@0900 dulaglutide (Trulicity) 1.5 mg (0.5 mL) subcut QWEEK 90 days insulin degludec (Tresiba FlexTouch U-100 insulin) 20 units (0.2 mL) subcut DAILY 90 days lisinopril-hydrochlorothiazide 20-12.5 mg 1 tab PO BID lovastatin 40 mg PO DAILY 90 days metformin 1,000 mg PO BEDTIME omeprazole 20 mg PO BID pen needle, diabetic As directed Tobacco use date assessed: 04/11/23 Dental Screening Dental Screen Date: 04/11/23 HPI 3 Month F/U HPI Details hypertension on rx; doing well and compliant [facility] Medical History (Updated 08/10/23 @ 09:19 by Peewee Pan MD) Rectal bleeding Type 2 diabetes mellitus with obesity Obesity Benign prostatic hyperplasia with lower urinary tract symptoms Feeling of incomplete bladder emptying Nocturia Non-toxic multinodular goiter Dyslipidemia Hypertension Diabetic neuropathy associated with type 2 diabetes mellitus longterm (current) use of insulin Diabetes type 2, controlled Diabetes mellitus Vitamin D deficiency Surgical History History of biopsy History of excision of lesion History of laminectomy History of appendectomy Family History Father Old age Mother Heart disease Social History Housing: House Alcohol intake: current Alcohol intake frequency: holidays/special occasions only Patient Tobacco Use Status: Former Tobacco user Tobacco use type: Cigarette e-Cigarette/Vaping Use: Never Used Second Hand Smoke Exposure: No service: No Current occupational status: retired Cognitive needs: No Hearing needs: No Vision needs: Yes Questionnaire PHQ-9 Over the last 2 weeks, how often have you been bothered by any of the following problems? 1. Little interest or pleasure in doing things: not at all 2. Feeling down, depressed, or hopeless: not at all 3. Trouble falling or staying asleep, or sleeping too much: not at all 4. Feeling tired or having little energy: not at all 5. Poor appetite or overeating: not at all 6. Feeling bad about yourself - or that you are a failure or have let yourself or your family down: not at all 7. Trouble concentrating on things, such as reading the newspaper or watching television: not at all 8. Moving or speaking so slowly that other people could have noticed. Or the opposite - being so fidgety or restless that you have been moving around a lot more than usual: not at all 9. Thoughts that you would be better off or of hurting yourself in some wa y: not at all Total score: 0 Depression Screening Interpretation: Negative Depression Screening Done: Yes 45447 - PHQ-9 Billing: Yes Source: Developed by Drs. Filiberto Smith, Zofia Fonseca, Mohan Tello and colleagues, with an educational geoff from [employer]. Thrive Questionnaire Date Thrive assessed: 04/11/23 Are you currently unemployed and looking for a job?: No AUDIT C Alcohol Use Questionnaire (AUDIT-C) 1. How often do you have a drink containing alcohol?: Monthly or less 2. How many drinks containing alcohol do you have on a typical day when you are drinking?: 1 or 2 3. How often do you have six or more drinks on one occasion?: Never Total Score: 1 Score Reviewed/Action Taken: Yes BRIAN-7 AMB Questionnaire BRIAN-7 Date BRIAN - 7 assessed: 04/11/23 Source: Developed by Drs. Filiberto Smith, Zofia Fonseca, Mohan Tello and colleagues, with an educational geoff from [employer]. Review of Systems Const Denies chills, Denies headache(s) and Denies weight loss ENT Denies headache(s) Card Denies chest pain, Denies syncope, Denies irregular heart rhythm and Denies dyspnea Resp Denies chest congestion, Denies cough and Denies dyspnea GI Denies abdominal pain, Denies change in stool character, Denies nausea and Denies vomiting Musc Denies deformity and Denies joint swelling Neuro Denies syncope and Denies headache(s) Physical exam (Primary Care) Vital Signs: Last Vital Signs Pulse 66 11/10/23 10:26 BP 126/70 11/10/23 10:26 Pulse Ox 96 11/10/23 10:26 Oxygen Delivery Method Room Air 11/10/23 10:26 BMI result Body Mass Index 33.1 Tobacco/Smoking Status: Tobacco use Status Tobacco use date assessed 04/11/23 11/10/23 10:26 Patient Tobacco Use Status Former Tobacco user 11/10/23 10:26 Tobacco use type Cigarette 11/10/23 10:26 e-Cigarette/Vaping Use Never Used 11/10/23 10:26 PHQ-9: PHQ-9 Score PHQ-9: Total score 0 11/10/23 10:31 Depression Screening Interpretation: Negative Thrive Assessment: Date of Thrive Assessment Date Thrive assessed 04/11/23 11/10/23 10:26 Const General: cooperative, comfortable, no acute distress and alert Neck Neck: Yes no lymphadenopathy Thyroid: Thyroid normal Resp Effort & Inspection: normal respiratory effort Auscultation: clear to auscultation bilaterally Percussion: percussion normal Cardio Jugular venous distension: no JVD Palpation: normal PMI Rate: regular rate Rhythm: regular rhythm Heart sounds: S1 normal heart sound present and S2 normal heart sound present GI Inspection: Yes normal to inspection Palpation (GI): No hepatosplenomegaly present Skin General skin exam: no rashes or lesions noted Extrem General: Yes no clubbing, cyanosis or edema Assessment and Plan Assessment & Plan (1) Hypertension: Code(s): I10 - Essential (primary) hypertension Plan: stable; same rx Orders: Orders Glucose Fasting Today R73.9 - Hyperglycemia, unspecified Hemoglobin A1c Today R73.9 - Hyperglycemia, unspecified Lipid Panel Today Z13.220 - Encounter for screening for lipoid disorders Coding Level of Care Code Est Pt Level 3 (21476) Diagnoses Hypertension I10
== END 2023-11-10 10:40 | disposition home or self-care (01) ==
PROVIDERS: PCP Internal Medicine; Visit Provider Internal Medicine
DX: I10 Essential (primary) hypertension (principal)

== ENCOUNTER → 2023-11-10 10:22 | Outpatient (BNVA) | payer MEDICARE, OTHER, SELFPAY | PROVIDERS: PCP Internal Medicine; Visit Provider Internal Medicine | DX: I10 Essential (primary) hypertension (principal); E11.9 Type 2 diabetes mellitus without complications; E78.5 Hyperlipidemia, unspecified | CPT/HCPCS: 96127; 99212 ==

== ENCOUNTER 2024-01-31 07:17 | Outpatient (REF) | payer MEDICARE, OTHER, SELFPAY ==
[2024-01-31 07:59] LABS: Estimated Average Glucose 146 mg/dL; Hemoglobin A1C 185.1993 umol/L; Hemoglobin A1c % 6.7 % (<6.0); Total Hemoglobin (HGBA1C) 3750.3025 umol/L
[2024-01-31 08:19] LABS: Cholesterol 155 mg/dL (<200); Glucose Fasting 101 mg/dL (60-99); HDL Cholesterol 61 mg/dL (>40); LDL Cholesterol Calculated 73 mg/dL (<100); Triglycerides 108 mg/dL (<150)
== END 2024-01-31 07:18 | disposition home or self-care (01) ==
LOC: HO.LAB 07:17
PROVIDERS: PCP Internal Medicine; Visit Provider Internal Medicine
DX: Z13.220 Encounter for screening for lipoid disorders (principal); Z13.6 Encounter for screening for cardiovascular disorders; R73.9 Hyperglycemia, unspecified
CPT/HCPCS: 36415; 80061; 82947; 83036

== ENCOUNTER 2024-02-05 14:01 | Outpatient (AMB) | payer MEDICARE, OTHER, SELFPAY ==
[2024-02-05 14:03] VITALS: BP 140/78; PULSE 52; O2SAT 96; BMI 33.8
--- NOTE | 2024-02-05 14:03 | MHC.PC.OV ---
Vital Signs 02/05/24 14:03 Height 6 ft 1 in Weight 256 lb 2 oz BMI 33.8 BP 140/78 H Blood Pressure Location Lt brachial Position Sitting Pulse 52 Pulse Source Pulse Oximeter Pulse Oximetry (%) 96 Oxygen Delivery Method Room Air Intake Visit Reasons: 3 months f/u Allergies grass,trees etc Allergy (Unknown, Uncoded 02/05/24 14:05) Unknown Medication List - Last Reconciled 02/06/24 by Peewee Pan MD amlodipine 5 mg PO DAILY 90 days aspirin (Adult Low Dose Aspirin) 81 mg PO DAILY cholecalciferol (vitamin D3) 50 mcg PO DAILY 90 days dulaglutide (Trulicity) 3 mg subcut MO@0900 dulaglutide (Trulicity) 1.5 mg (0.5 mL) subcut QWEEK 90 days insulin degludec (Tresiba FlexTouch U-100 insulin) 20 units (0.2 mL) subcut DAILY 90 days lisinopril-hydrochlorothiazide 20-12.5 mg 1 tab PO BID lovastatin 40 mg PO DAILY 90 days metformin 1,000 mg PO BEDTIME omeprazole 20 mg PO BID pen needle, diabetic As directed Tobacco use date assessed: 02/05/24 Fall risk assessment: No Falls in past year Last assessed Fall Risk: 02/05/24 Dental Screening Dental Screen Date: 02/05/24 Did you have a dental visit in the last 12 months?: Yes Did you have a dental problem in the last 6 months where you did not have access to dental care?: No Was dental information given to patient?: Patient has dentist HPI 3 months f/u HPI Details DM on Rx; compliant; doing well [facility] Medical History Rectal bleeding Type 2 diabetes mellitus with obesity Obesity Benign prostatic hyperplasia with lower urinary tract symptoms Feeling of incomplete bladder emptying Nocturia Non-toxic multinodular goiter Dyslipidemia Hypertension Diabetic neuropathy associated with type 2 diabetes mellitus [facility] (current) use of insulin Diabetes type 2, controlled Diabetes mellitus Vitamin D deficiency Surgical History History of biopsy History of excision of lesion History of laminectomy History of appendectomy Family History Father Old age Mother Heart disease Social History Housing: House Alcohol intake: current Alcohol intake frequency: holidays/special occasions only Patient Tobacco Use Status: Former Tobacco user Tobacco use type: Cigarette e-Cigarette/Vaping Use: Never Used Second Hand Smoke Exposure: No service: No Current occupational status: retired Cognitive needs: No Hearing needs: No Vision needs: Yes Questionnaire PHQ-9 Over the last 2 weeks, how often have you been bothered by any of the following problems? 1. Little interest or pleasure in doing things: not at all 2. Feeling down, depressed, or hopeless: not at all 3. Trouble falling or staying asleep, or sleeping too much: not at all 4. Feeling tired or having little energy: not at all 5. Poor appetite or overeating: not at all 6. Feeling bad about yourself - or that you are a failure or have let yourself or your family down: not at all 7. Trouble concentrating on things, such as reading the newspaper or watching television: not at all 8. Moving or speaking so slowly that other people could have noticed. Or the opposite - being so fidgety or restless that you have been moving around a lot more than usual: not at all 9. Thoughts that you would be better off or of hurting yourself in some way: not at all Total score: 0 Depression Screening Interpretation: Negative Depression Screening Done: Yes 66992 - PHQ-9 Billing: Yes Source: Developed by Drs. Filiberto Smith, Zofia Fonseca, Mohan Tello and colleagues, with an educational geoff from [employer]. Thrive Questionnaire Date Thrive assessed: 02/05/24 I am a: Patient What is your living situation today?: I have a steady place to live Within the past 12 months, did the food you bought not last and you didn't have the money to get more?: Never true Within the past 12 months, did you worry whether your food would run out before you got money to buy more?: Never true Do you have trouble paying for medicines?: No Do you have trouble getting transportation to medical appointments?: No Do you have trouble paying your heating and electricity bill?: No Do you have trouble taking care of your child, family member or friend?: No Do you have trouble with day-to-day activities such as bathing, preparing meals, shopping, managing finances, etc.?: No Are you currently unemployed and looking for a job?: No Are you interested in more education?: No Please select the resources that you would like help with: None THRIVE Score: 0 AUDIT C Alcohol Use Questionnaire (AUDIT-C) 1. How often do you have a drink containing alcohol?: Never 3. How often do you have six or more drinks on one occasion?: Never Total Score: 0 BRIAN-7 AMB Questionnaire BRIAN-7 Date BRIAN - 7 assessed: 02/05/24 Feeling nervous, anxious, or on edge: 0 = Not at all Not being able to stop or control worryin = Not at all Worrying too much about different things: 0 = Not at all Trouble relaxin = Not at all Being so restless that it is hard to sit still: 0 = Not at all Becoming easily annoyed or irritable: 0 = Not at all Feeling afraid as if something awful might happen: 0 = Not at all Total BRIAN-7 score (0-4 normal; 5-9 mild; 10-14 moderate; 15-21 severe): 0 Source: Developed by Drs. Filiberto Smith, Zofia Fonseca, Mohan Tello and colleagues, with an educational geoff from [employer]. BRIAN-7 Assessment Billing BRIAN-7 Assessment Tool: BRIAN-7 Assessment 36816 Review of Systems Const Denies chills, Denies headache(s) and Denies weight loss ENT Denies headache(s) Card Denies chest pain, Denies syncope, Denies irregular heart rhythm and Denies dyspnea Resp Denies chest congestion, Denies cough and Denies dyspnea GI Denies abdominal pain, Denies change in stool character, Denies nausea and Denies vomiting Musc Denies deformity and Denies joint swelling Neuro Denies syncope and Denies headache(s) Physical exam (Primary Care) Vital Signs: Last Vital Signs Pulse 52 02/05/24 14:03 BP 140/78 H 02/05/24 14:03 Pulse Ox 96 02/05/24 14:03 Oxygen Delivery Method Room Air 02/05/24 14:03 BMI result Body Mass Index 33.8 Tobacco/Smoking Status: Tobacco use Status Tobacco use date assessed 02/05/24 02/05/24 14:09 Patient Tobacco Use Status Former Tobacco user 02/05/24 14:09 Tobacco use type Cigarette 02/05/24 14:09 e-Cigarette/Vaping Use Never Used 02/05/24 14:09 PHQ-9: PHQ-9 Score PHQ-9: Total score 0 02/05/24 14:09 Depression Screening Interpretation: Negative Thrive Assessment: Date of Thrive Assessment Date Thrive assessed 02/05/24 02/05/24 14:09 Const General: cooperative, comfortable, no acute distress and alert Neck Neck: Yes no lymphadenopathy Thyroid: Thyroid normal Resp Effort & Inspection: normal respiratory effort Auscultation: clear to auscultation bilaterally Percussion: percussion normal Cardio Jugular venous distension: no JVD Palpation: normal PMI Rate: regular rate Rhythm: regular rhythm Heart sounds: S1 normal heart sound present and S2 normal heart sound present GI Inspection: Yes normal to inspection Palpation (GI): No hepatosplenomegaly present Skin General skin exam: no rashes or lesions noted Extrem General: Yes no clubbing, cyanosis or edema Coding Level of Care Code Est Pt Level 3 (39887) Diagnoses Type 2 diabetes mellitus with obesity E11.69; E66.9 Additional Codes BRIAN-7 Assessment Billing - BRIAN-7 Assessment Tool: BRIAN-7 Assessment 35562 ([id number]) PHQ-9 - 27323 - PHQ-9 Billing: Yes ([id number]) Assessment & Plan Assessment & Plan (1) Type 2 diabetes mellitus with obesity: Code(s): E11.69 - Type 2 diabetes mellitus with other specified complication; E66.9 - Obesity, unspecified Category: Medical Plan: stable; same rx Orders: Orders Glucose Fasting Today R73.9 - Hyperglycemia, unspecified Hemoglobin A1c Today R73.9 - Hyperglycemia, unspecified
== END 2024-02-05 14:19 | disposition home or self-care (01) ==
PROVIDERS: PCP Internal Medicine; Visit Provider Internal Medicine
DX: E11.69 Type 2 diabetes mellitus with other specified complication (principal); E66.811 Obesity, class 1; Z68.33 Body mass index [BMI] 33.0-33.9, adult

== ENCOUNTER → 2024-02-05 14:01 | Outpatient (BNVA) | payer MEDICARE, OTHER, SELFPAY | PROVIDERS: PCP Internal Medicine; Visit Provider Internal Medicine | DX: E11.69 Type 2 diabetes mellitus with other specified complication (principal); E66.9 Obesity, unspecified | CPT/HCPCS: 96127; 99212 ==

== ENCOUNTER 2024-04-22 08:10 | Outpatient (REF) | payer MEDICARE, OTHER, SELFPAY ==
--- OUTSIDE RECORDS SUMMARY | 2024-04-22 08:17 | XMS_ITS ---
Author Organization [facility] Address [address] [place] [address] Care Team Providers Care Neurosurgeon Name Role Phone Peewee Pan MD Primary Care Provider Unavaila Kerry Romero Unavailable [phone] Dario Luo Unavailable [phone] Allergies Allergen (clinical drug ingredient) Drug/Non Drug Allergy documented on EMR Reaction Allergy Type Onset Date Status Grass Mix Pollens Allergen Ext Unknown Drug Allergy Active Dust Mite Mixed Allergen Ext Unknown Drug Allergy Active REASON FOR VISIT Painful nail(s) aggrevated by shoes and causing difficulty standing/walking. Medications Medication SIG (Take, Route, Frequency, Duration) Notes Start Date End Date Status Lisinopril-hydroCHLOROt hiazide 40mg 1 tablet Orally Once a day for 30 day(s) Active Lovastatin 1 tablet with a meal Orally Once a day for 30 day(s) Active metFORMIN HCl 1000 MG 1 tablet with meal s Orally Twice a day for 30 day(s) Active Tresiba Active Trulicity 0.75 MG/0.5ML Subcutaneous Not-Taking Voltaren 1 % as directed Externally Active amLODIPine Besylate 5 MG 1 tablet Orally Once a day for 30 day(s) Active Aspirin 81 MG 1 tablet Orally Once a day for 30 day(s) Active Tamsulosin HCl 0.4 MG 1 capsule Orally O nce a day for 30 day(s) Not-Taking Extra-Depth Diabetic Shoes with 3 Pair Custom heat-molded multi-density innersoles . 1pair shoes/3sets inserts . . for 1 year 08/22/2012 Not-Taking Extra-Depth Diabetic Shoes with 3 Pair Custom heat-molded multi-density innersoles . for 1 year . Dx: foot deformity with preulcerative skin lesions for . 09/01/2014 Active Social History Tobacco Use: Social History Observation Description Date Details (start date - stop date) Former Smoker NA - NA Tobacco Use/Smoking Question Answer Notes Are you a: former smoker Additional Findings: Tobacco Non-User Current no n-smoker Alcohol Screen Question Answer Notes Did you have a drink containing alcohol in the p ast year? No Points 0 Interpretation Negative Tobacco use other than smoking: Question Answer Notes Are you an other tobacco user? No Vital Signs Height 6 ft 1 in in 12/07/2023 Weight 250 lbs 12/07/2023 BMI 32.98 kg/m2 12/07/2023 Encounters Encounter Location Date Provider Diagnosis [facility] [address] [address] 12/07/2023 Dario Luo Tinea unguium B35.1 ; Type 2 diabetes mellitus with other diabetic neurological complication E11.49 ; Pain in right toe(s) M79.674 ; Pain in left toe(s) M79.675 ; Tinea pedis B35.3 ; Xerosis cutis L85.3 ; Primary osteoarthritis, left ankle and foot M19.072 and Primary osteoarthritis, right ankle and foot M19.071 Assessments Encounter Date Diagnosis (ICD Code) Assessment Notes Treatment Notes Treatment Clinical Notes Section Notes 12/07/2023 Tinea unguium (ICD-10 - B35.1) 12/07/2023 Type 2 diabetes mellitus with other diabetic neurological complication (ICD-10 - E11.49) 12/07/2023 Pain in right toe(s) (ICD-10 - M79.674) 12/07/2023 Pain in left toe(s) (ICD-10 - M79.675) 12/07/2023 Tinea pedis (ICD-10 - B35.3) 12/07/2023 Xerosis cutis (ICD-10 - L85.3) 12/07/2023 Primary osteoarthritis, left ankle and foot (ICD-10 - M19.072) 12/07/2023 Primary osteoarthritis, right ankle and foot (ICD-10 - M19.071) Plan Of Treatment Medication Medication Name Sig Start Date Stop Date Notes Voltaren 1 % as directed Externally Next Appt Details Follow Up: 3 Months, Reason: Provider Name:Kerry mcallister, 06/03/2024 03:30:00 PM, [address] [place], [address], Procedure Notes * Category Sub-Category Detail Notes Debride Nail 6-10 Nail debridement Nail debridem ent performed extensively to reduce/remove overall nail length and girth, subungual debris, and necrotic tissue, by manual and electrical means with use of a nail nipper and/or dremel, to more viable healthy nail plate or bed tissue 6-10. Silver nitrate used for any petechial bleeding as necessary. Patient chooses, no pharmaceutical tx ([id number]) Keratoma Treatment Parring or Cutting o f Benign Hyperkeratotic Lesion(s) 03546 ( >4 Lesions) - The Benign hyperkeratotic lesions, as described above were pared, and/or cut utilizing a sterile #15 blade, tissue nippers, and/or dremel Progress Notes * Juan CRONINDOB:1945 (78 yo M)Acc No.[id number]:12/07/2023 Progress Note Patient:?Ilan, Juan Provider:?Dario Luo DPM :1945???Age:78 Y???Sex:Male Golden e:12/07/2023 Address:[address] [place], [place] [id number] Pcp:Peeewe Pan MD Subjective: * Chief Complaints: * ??? Painful nail(s) aggrevat ed by shoes and causing difficulty standing/walking. * HPI: ???Painful Nails:?Pt States Last PCP Visit:?Date:?10/15/2023 ???Toe pain:?Nature:?stiffness, aching.?Location:?B/L feet.?Duration:?several months.?Course:?intermittent, worse.?Aggravated by:?night.?Severity/Quality:?mild, moderate.? * ROS:?General/Constitutional:?Nausea?denies.?Vomiting?denies.?Hunger Thirst?denies.?Loss appetite?denies.?Chills?denies.?Fatigue?denies.?Fever?denies.?Night Sweats?denies.?Unexplained weight loss?denies.?Ophthalmologic:?Blurred vision?denies.?Red eye?denies.?HEENTM:?Dentures?denies.?Dizziness?denies.?Glasses/contacts?denies, admits.?Retinopathy?denies.?Blurred/double vision?denies.?TMJ?denies.?Discharge/drainage?denies.?Implants?denies.?Hard of hearing ?denies.?Difficulty chewing/swallowing/speaking?denies.?Nose bleeds?denies.?Sore mouth?denies.?Swollen glands?denies.?Respiratory:?On Oxygen?denies.?Pneumonia/pleurisy?denies.?Bronchitis?denies.?Emphysema?denies.?C oughing?denies.?Cough blood?denies.?Shortness of breath?denies.?Wheezing?denies.?Cardiovascular:?Pacemaker?denies.?MVP?denies.?WPW?denies.?CHF?denies.?Heart attack?denies.?Septal defect?denies.?Rapid beat?denies.?Chest pain ?denies.?Atrial Fib.?denies.?Murmur/Palpitations?denies.?Gastrointestinal:?Hemorrhoids?denies.?Stomach/Abdominal pain?denies.?Dark blood stool?denies.?Irritable bowel ?denies.?Constipation?denies.?Diarrhea?denies.?Vomiting?denies.?Hematology:?Swelling?denies.?Bruising?denies.?Bleeding problem?denies.?Genitourinary:?Blood urine?denies.?Frequent/Painfu/urination/bladder control?denies.?Kidney stones?denies.?Infection (UTI)?denies.?Nephropathy?denies.?Musculoskeletal:?Hammertoes?denies.?Bunions?denies.?Scoliosis/kyphosis?denies.?Muscle cramps / walking?denies.?Generalized aches and pains?denies.?Weakness?denies.?Integ.:?Grissom?denies.?Scars?denies.?Corns/calluses?denies.?Ingrown nails?denies.?Painful nails?admits, admits.?Rashes?denies.?Neurologic:?Difficulty sleeping?denies.?Bipolar?denies.?Brain disorder?denies.?Balance trouble?denies.?Confusion?denies.?Fainting/blackouts?denies.?Headache?denies.?Tr emors?denies.? * Medical History:? * Surgical History:?appendecto my disc surgery neck surgery deveated septum nal rodriguez 01/2014colonoscopy 05/2017 * Hospitalization/Major Diagno stic Procedure:?[facility] - Nasal polyp removal 05/13/14 * Family History:?Mother: dece ased, diagnosed with Unspecified essential hypertension.?Father: , diagnosed with Unspecified essential hypertension.?Daughter(s): alive.?Son(s): alive.?Spouse: alive.?1 son(s) , 1 daughter(s) . .? patient denies family history. * Social History:?Tobacco Use:?Tobacco Use/Smoking?Are you a:?former smoker ?Additional Findings: Tobacco Non-User?Current non-smoker ?Tobacco use other than smoking?Are you an other tobacco user??No ???Drugs/Alcohol:?Drugs?Have you used drugs other than those for medical reasons in the past 12 months??No ?Alcohol Screen?Did you have a drink containing alcohol in the past year??No ?Points?0 ?Interpretation?Negative ???Miscellaneous:?Caffeine: yes, frequency:, 3 cups per day. ?Children: yes. ?Exercise: yes, walking, housework,Shopping. ?Marital status: . 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 * Medications:?TakingamLODIPin e Besylate 5 MG Tablet 1 tablet Orally Once a dayAspirin 81 MG Tablet Chewable 1 tablet Orally Once a dayLisinopril-hydroCHLOROthiazide 40mg Tablet 1 tablet Orally Once a dayLovastatin Tablet 1 tablet with a meal Orally Once a daymetFORMIN HCl 1000 MG Tablet 1 tablet with meals Orally Twice a dayTresiba Extra-Depth Diabetic Shoes with 3 Pair Custom heat-molded multi-density innersoles . . for 1 year . Dx: foot deformity with preulcerative skin lesionsTaking amLODIPine Besylate 5 MG Tablet 1 tablet Orally Once a dayTaking Aspirin 81 MG Tablet Chewable 1 tablet Orally Once a dayTaking Lisinopril-hydroCHLOROthiazide 40mg Tablet 1 tablet Orally Once a dayTaking Lovastatin Tablet 1 tablet with a meal Orally Once a dayTaking metFORMIN HCl 1000 MG Tablet 1 tablet with meals Orally Twice a dayTaking Tresiba Taking Extra-Depth Diabetic Shoes with 3 Pair Custom heat-molded multi-density innersoles . . for 1 year . Dx: foot deformity with preulcerative skin lesionsNot-Taking/PRNVoltaren 1 % Gel as directed Externally Trulicity 0.75 MG/0.5ML Solution Pen-injector Subcutaneous Tamsulosin HCl 0.4 MG Capsule 1 capsule Orally Once a dayExtra-Depth Diabetic Shoes with 3 Pair Custom heat-molded multi- density innersoles . . 1pair shoes/3sets inserts . .Medication List reviewed and reconciled with the patientNot-Taking/PRN Voltaren 1 % Gel as directed Externally Not- Taking/PRN Trulicity 0.75 MG/0.5ML Solution Pen-injector Subcutaneous Not-Taking/PRN Tamsulosin HCl 0.4 MG Capsule 1 capsule Orally Once a dayNot-Taking/PRN Extra-Depth Diabetic Shoes with 3 Pair Custom heat-molded multi-density innersoles . . 1pair shoes/3sets inserts . .Medication List reviewed and reconciled with the patient * Allergies:?Grass Mix Pollens Allergen ExtDust Mite Mixed Allergen Extyes[Allergies Verified] Objective: * Vitals:?Ht: 6 ft 1 in, Wt: 2 50, BMI: 32.98, Shoe size: 10.5, BS: 145, Ht-cm: 185.42 cm, Wt-k.4 kg. * ???Past Orders: ???Lab:HEMOGLOBIN A1C (GLYCO HEMOGLOBIN) (Order Date - 10/15/2023) (Collection Date - 10/15/2023) ? Value Reference Range ?TOTAL HEMOGLOBIN (HGBA1C) 6.8 * Examination: ???Neurological: ?SENSORY:?exam demonstrates, reduced vibration lower extremity, B/L, at forefoot, 5.07 monofilament test performed at plantar aspects of 5 varied sites per foot, shows sensation, reduced, Neurological exam demonstrates mild pop monica 2nd toe ipj's.?Vascular: ?DP PULSES(B):? 14, B/L.?PT PULSES(B):? 1/4, B/L.?CAPILLARY FILL TIME:?3 secs. per digit. B/L.?TROPHIC CONDITION-TEXTURE/ELASTICITY/TURGOR/HAIR GROWTH(B):?normal.?TEMPERTURE GRADIENT(C):?normal.?PIGMENTATION:?normal.?EDEMA(C):?absent.?Nails: ?NAILS are:?elongated,overgrown,dystrophic,greater than 3mm thick,discolored and friable with crumbly malodorous subungual debris, with dull pain on palpation due to neuropathy, 1-5 B/L.?Dermatologic: ?SKIN FINDINGS:?Skin exam reveals keratotic lesion(s) located at, Medial plantar, Medial plantar, TA, T5, SUB MTH (s), 5, B/L, Heel, B/L, Skin shows sign(s) of, dryness, scaling, in a stocking fashion, no fissure(s) present, B/L.?General Examination: ?GENERAL APPEARANCE:?pleasant, alert, well nourished, well developed, well hydrated, with good attention to hygene/body habitus, and in no acute distress.?FOOT EXAM:?Lower Extremity Neurological Exam performed:?Yes ?Visual exam of foot performed:?Yes ?Date?05/25/2023 ?Sensory testing performed:?sensations diminished ?Pedal pulse taking performed:?1+?Orthopedic: ?FOOT MORPHOLOGY:?Pes Planus structure.?DIGITAL DEFORMITIES:?Digital contracture, 2-5 monica, incompl-reducable to push-up test, no over, nor underlapping.?FOOTWEAR:?worn, nonsupportive.?Ophthalmology Referral: ?DIABETES EYE EXAM?Diabetic Retinopathy Screening:?Yes ?Findings of Diabetic Eye Exam:?no retinopathy??? Assessment: * Assessment: 1.?Tinea unguium - B35.1 (Pr imary)?2.?Type 2 diabetes mellitus with other diabetic neurological complication - E11.49?3.?Pain in right toe(s) - M79.674?4.?Pain in left toe(s) - M79.675?5.?Tinea pedis - B35.3?6.?Xerosis cutis - L85.3?7. Primary osteoarthritis, left ankle and foot - M19.072?8.?Primary osteoarthritis, right ankle and foot - M19.071? Plan: * Treatment: * Procedures:?Debride Nail 6-10:?Nail debridement?Nail debridement performed extensively to reduce/remove overall nail length and girth, subungual debris, and necrotic tissue, by manual and electrical means with use of a nail nipper and/or dremel, to more viable healthy nail plate or bed tissue 6-10. Silver nitrate used for any petechial bleeding as necessary. Patient chooses, no pharmaceutical tx (21244).?Keratoma Treatment:?Parring or Cutting of Benign Hyperkeratotic Lesion(s)?82035 ( >4 Lesions) - The Benign hyperkeratotic lesions, as described above were pared, and/or cut utilizing a sterile #15 blade, tissue nippers, and/or dremel.? * Procedure Codes:?81841 DEBRI DE NAIL, 6 OR MORE, Modifiers: XS 44606 TRIM SKIN LESIONS, OVER 4, Modifiers: XS * Follow Up:?3 Months * Images: * Sign off status: Completed true * Provider:?Dario Luo DPM Date:? 024 Generated for Sharath sanches/Kary/eTarnoldo on:?04/22/2024 08:16 AM EDT History and Physical Notes * HPI (History of Present Illness) Category Sub-Category Detail Notes Category Not es Toe pain Nature: stiffness, aching Location: B/L feet Duration: several months Course: intermittent, worse Aggravated by: night Severity/Quality: mild, moderate Painful Nails Pt States Last PCP Visit: Date:: 10/15/2023 Examination Category Sub-Category Detail Notes Category Not es Neurological SENSORY: exam demonstrate s, reduced vibration lower extremity, B/L, at forefoot, 5.07 monofilament test performed at plantar aspects of 5 varied sites per foot, shows sensation, reduced, Neurological exam demonstrates mild pop monica 2nd toe ipj's Dermatologic SKIN FINDINGS: Skin exam reveal s keratotic lesion(s) located at, Medial plantar, Medial plantar, TA, T5, SUB MTH (s), 5, B/L, Heel, B/L, Skin shows sign(s) of, dryness, scaling, in a stocking fashion, no fissure(s) present, B/L Orthopedic FOOT MORPHOLOGY: Pes Planus structure FOOTWEAR: worn, nonsupportive DIGITAL DEFORMITIES: Digital contracture , 2-5 monica, incompl-reducable to push-up test, no over, nor underlapping General Examination GENERAL APPEARANCE: pleasant , alert, well nourished, well developed, well hydrated, with good attention to hygene/body habitus, and in no acute distress FOOT EXAM: Lower Extremity Neurological Exa m performed:: Yes Visual exam of foot performed:: Yes Date: 05/25/2023 Sensory testing performed:: sensations d iminished Pedal pulse taking performed:: 1+ Ophthalmology Referral DIABETES EYE EXAM Diabetic Retinopa thy Screening:: Yes Findings of Diabetic Eye Exam:: no retin opathy Vascular DP PULSES (B): 1/4, B/L PT PULSES (B): 1/4, B/L CAPILLARY FILL TIME: 3 secs. per digit. B/L TEMPERTURE GRADIENT (C): normal TROPHIC CONDITION-TEXTURE/ELASTICITY/TUR GOR/HAIR GROWTH (B): normal EDEMA (C): absent PIGMENTATION: normal Nails NAILS are: elongated,overgr own,dystrophic,greater than 3mm thick,discolored and friable with crumbly malodorous subungual debris, with dull pain on palpation due to neuropathy, 1-5 B/L
--- OUTSIDE RECORDS SUMMARY | 2024-04-22 08:17 | XMS_ITS | Patient Health Record ---
[facility] Organization [facility] Address [address] [facility] [place] [address] Care Team Providers Care Family Law Specialist Name Role Phone Viviane RENDON, Peewee Primary Care Provider Kerry Guzman Unavailable [phone] Dario Luo Unavailable [phone] Allergies Allergen (clinical drug ingredient) Drug/Non Drug Allergy documented on EMR Reaction Allergy Type Onset Date Status Grass Mix Pollens Allergen Ext Unknown Drug Allergy Active Dust Mite Mixed Allergen Ext Unknown Drug Allergy Active Results Component Value Reference Range Notes HEMOGLOBIN A1C (GLYCOHEMOGLO BIN) Reviewed date:12/07/2023 08:14:09 AM Interpretation: Performing Lab: Notes/Report: TOTAL HEMOGLOBIN (HGBA1C) 6.8 HEMOGLOBIN A1C (GLYCOHEMOGLO BIN) Reviewed date:03/07/2024 11:01:05 AM Interpretation: Performing Lab: Notes/Report: HEMOGLOBIN A1C % (HH) 6.2 Reason For Referral No Information Medications Medication SIG (Take, Route, Frequency, Duration) Notes Start Date End Date Status amLODIPine Besylate 5 MG 1 tablet Orally Once a day for 30 day(s) Active Aspirin 81 MG 1 tablet Orally Once a day for 30 day(s) Active Extra-Depth Diabetic Shoes with 3 Pair Custom heat-molded multi-density innersoles . 1pair shoes/3sets inserts . . for 1 year 08/22/2012 Not-Taking Voltaren 1 % as directed Externally Active metFORMIN HCl 1000 MG 1 tablet with meal s Orally Twice a day for 30 day(s) Active Tresiba Active Lisinopril-hydroCHLOROt hiazide 40mg 1 tablet Orally Once a day for 30 day(s) Active Lovastatin 1 tablet with a meal Orally Once a day for 30 day(s) Active Trulicity 0.75 MG/0.5ML Subcutaneous Not-Taking Tamsulosin HCl 0.4 MG 1 capsule Orally O nce a day for 30 day(s) Not-Taking Extra-Depth Diabetic Shoes with 3 Pair Custom heat-molded multi-density innersoles . for 1 year . Dx: foot deformity with preulcerative skin lesions for . 09/01/2014 Active Immunizations Vaccine Route Administration Date Status Comme nts COVID-19 Moderna Vaccine Unknown 11/14/2020 Administere d 1st 04/14/2020 2nd 05/05/2020 Influenza Unknown 10/29/2015 Administered Influenza Unknown 11/23/2016 Administered Influenza Unknown 11/28/2017 Administered Influenza Unknown 10/14/2021 Administered Influenza Unknown 10/14/2022 Administered Pneumococcal Unknown 11/22/2016 Administered Social History Tobacco Use: Social History Observation Description Date Details (start date - stop date) Never Smoker NA - NA Tobacco use other than smoking: Question Answer Notes Are you an other tobacco user? No Tobacco Control (Standard) Question Answer Notes Tobacco use: Nonsmoker Additional Findings: Tobacco non-user Current no nsmoker AUDIT-C (Standard) Question Answer Notes Did you have a drink containing alcohol in the p ast year? No Points 0 Interpretation Negative Problems Problem Type SNOMED Code ICD Code Onset Dates Problem Status W/U Status Risk Notes Problem Polyneuropathy due to type 2 diabetes mellitus (216363428) Type 2 diabetes mellitus with diabetic polyneuropathy (E11.42) Active confirmed Vital Signs Blood pressure diastolic 80 mm Hg 03/07/2024 Height 6 ft 1 in in 03/07/2024 Blood pressure systolic 120 mm Hg 03/07/2024 Weight 250 lbs 03/07/2024 BMI 32.98 kg/m2 03/07/2024 Procedures Procedure Date Ordered Date Performed Result Body Sit e 75958-RGZVOHE NAIL, 6 OR MORE 03/07/2024 N/A 36833-PJJF SKIN LESIONS, 2 TO 4 03/07/2024 N/A Encounters Encounter Location Date Provider Diagnosis [facility] [address] [place] [address] 05/25/2023 Dario Luo Tinea unguium B35.1 ; Type 2 diabetes mellitus with other diabetic neurological complication E11.49 ; Pain in right toe(s) M79.674 ; Pain in left toe(s) M79.675 ; Tinea pedis B35.3 ; Xerosis cutis L85.3 ; Primary osteoarthritis, left ankle and foot M19.072 and Primary osteoarthritis, right ankle and foot M19.[address] [address] 09/04/2023 Dario Luo Tinea unguium B35.1 ; Type 2 diabetes mellitus with other diabetic neurological complication E11.49 ; Pain in right toe(s) M79.674 ; Pain in left toe(s) M79.675 ; Tinea pedis B35.3 ; Xerosis cutis L85.3 ; Primary osteoarthritis, left ankle and foot M19.072 and Primary osteoarthritis, right ankle and foot M19.[address] [address] 12/07/2023 Dario Luo Tinea unguium B35.1 ; Type 2 diabetes mellitus with other diabetic neurological complication E11.49 ; Pain in right toe(s) M79.674 ; Pain in left toe(s) M79.675 ; Tinea pedis B35.3 ; Xerosis cutis L85.3 ; Primary osteoarthritis, left ankle and foot M19.072 and Primary osteoarthritis, right ankle and foot M19.[address] [address] 03/07/2024 Kerry Das Type 2 diabetes mellitus with diabetic polyneuropathy E11.42 and Tinea unguium B35.1 Assessments Encounter Date Diagnosis (ICD Code) Assessment Notes Treatment Notes Treatment Clinical Notes Section Notes 05/25/2023 Tinea unguium (ICD-10 - B35.1) 09/04/2023 Tinea unguium (ICD-10 - B35.1) 12/07/2023 Tinea unguium (ICD-10 - B35.1) 03/07/2024 Type 2 diabetes mellitus with diabetic polyneuropathy (ICD-10 - E11.42) 03/07/2024 Tinea unguium (ICD-10 - B35.1) 12/07/2023 Type 2 diabetes mellitus with other diabetic neurological complication (ICD-10 - E11.49) 09/04/2023 Type 2 diabetes mellitus with other diabetic neurological complication (ICD-10 - E11.49) 05/25/2023 Type 2 diabetes mellitus with other diabetic neurological complication (ICD-10 - E11.49) 05/25/2023 Pain in right toe(s) (ICD-10 - M79.674) 09/04/2023 Pain in right toe(s) (ICD-10 - M79.674) 12/07/2023 Pain in right toe(s) (ICD-10 - M79.674) 12/07/2023 Pain in left toe(s) (ICD-10 - M79.675) 09/04/2023 Pain in left toe(s) (ICD-10 - M79.675) 05/25/2023 Pain in left toe(s) (ICD-10 - M79.675) 05/25/2023 Tinea pedis (ICD-10 - B35.3) 09/04/2023 Tinea pedis (ICD-10 - B35.3) 12/07/2023 Tinea pedis (ICD-10 - B35.3) 12/07/2023 Xerosis cutis (ICD-10 - L85.3) 09/04/2023 Xerosis cutis (ICD-10 - L85.3) 05/25/2023 Xerosis cutis (ICD-10 - L85.3) 05/25/2023 Primary osteoarthritis, left ankle and foot (ICD-10 - M19.072) 09/04/2023 Primary osteoarthritis, left ankle and foot (ICD-10 - M19.072) 12/07/2023 Primary osteoarthritis, left ankle and foot (ICD-10 - M19.072) 09/04/2023 Primary osteoarthritis, right ankle and foot (ICD-10 - M19.071) 12/07/2023 Primary osteoarthritis, right ankle and foot (ICD-10 - M19.071) 05/25/2023 Primary osteoarthritis, right ankle and foot (ICD-10 - M19.071) Plan Of Treatment Pending Test Test Name Order Date 03940-CRCUQQU NAIL, 6 OR MORE 08/22/2012 49829-AOUGPXS NAIL, 6 OR MORE 02/25/2013 56580-OYUCKNE NAIL, 6 OR MORE 08/26/2013 33940-TPGUMGR NAIL, 6 OR MORE 02/26/2014 36996-NARCRYR NAIL, 6 OR MORE 09/01/2014 32087-UTLSLTI NAIL, 6 OR MORE 12/29/2014 20632-PXSKCCE NAIL, 6 OR MORE 05/06/2015 10039-XLBXMQK NAIL, 6 OR MORE 08/19/2015 24277-WJOKCHP NAIL, 6 OR MORE 11/25/2015 66604-QAWZTAC NAIL, 6 OR MORE 02/24/2016 13908-XDFIDAY NAIL, 6 OR MORE 05/25/2016 47755-HHXOGNX NAIL, 6 OR MORE 08/29/2016 50598-AFNRMAN NAIL, 6 OR MORE 11/28/2016 74784-KNFYRDJ NAIL, 6 OR MORE 03/09/2017 86038-GKXXRCZ NAIL, 6 OR MORE 06/12/2017 56510-HHMVMRK NAIL, 6 OR MORE 09/11/2017 18281-CIALPTP NAIL, 6 OR MORE 12/06/2017 37967-PFKLJQN NAIL, 6 OR MORE 03/07/2024 84847-MHOF SKIN LESIONS, OVER 4 05/01/19 19 81421-MWYM SKIN LESIONS, OVER 4 09/04/19 19 42586-DMPF SKIN LESIONS, OVER 4 01/03/20 19 56517-HRIH SKIN LESIONS, OVER 4 04/10/19 20 79947-WFFY SKIN LESIONS, OVER 4 07/17/19 20 83883-YQVE SKIN LESIONS, OVER 4 10/28/19 20 52936-AUYN SKIN LESIONS, OVER 4 01/27/20 20 54565-SKNQ SKIN LESIONS, OVER 4 04/28/19 21 33587-NNHE SKIN LESIONS, OVER 4 07/30/19 21 31160-YENX SKIN LESIONS, OVER 4 10/29/19 21 88296-TGIL SKIN LESIONS, OVER 4 02/11/20 21 27257-WDEG SKIN LESIONS, OVER 4 05/13/19 22 06408-GWPT SKIN LESIONS, OVER 4 12/07/19 18 76509-RHQK SKIN LESIONS, OVER 4 09/12/19 18 79173-SCSO SKIN LESIONS, OVER 4 06/13/19 18 03629-XHFM SKIN LESIONS, OVER 4 03/09/19 18 95923-YLUC SKIN LESIONS, OVER 4 11/29/19 17 45517-ZHJR SKIN LESIONS, OVER 4 05/26/19 17 94897-YAPS SKIN LESIONS, OVER 4 08/30/19 17 91962-BOKG SKIN LESIONS, OVER 4 02/23/19 17 92822-LVIS SKIN LESIONS, OVER 4 11/25/19 16 18759-TCGX SKIN LESIONS, OVER 4 08/19/19 16 44788-UYPK SKIN LESIONS, OVER 4 05/06/19 16 04801-HEXX SKIN LESIONS, OVER 4 12/30/19 15 60918-EVWI SKIN LESIONS, OVER 4 09/02/19 15 15392-OZBI SKIN LESIONS, OVER 4 02/26/19 15 45565-LGFJ SKIN LESIONS, OVER 4 08/27/19 14 97381-CFBU SKIN LESIONS, OVER 4 02/25/19 14 47438-GRJS SKIN LESIONS, OVER 4 08/23/19 13 96496-PAJR SKIN LESIONS, 2 TO 4 03/07/19 Next Appt Details Provider Name:Kerry Michelle mcallister, 06/03/2024 03:30:00 PM, [address] [place], [address], Insurance Providers Payer Name Payer Address Payer Phone Subscriber Number Group Number Insured Name Patient Relationship to Insured Coverage Start Date Coverage End Date Medicare National [employer] [address] [place] [phone] [id number] Juan Talavera Self - patient is the insured [employer]) [address] [place] [address] [id number] Juan Talavera Self - patient is the insured Medical (General) History Medical History History ICD Code neuropathy mumps measles high blood pressure diabetic type II chicken pox back, hip, knee pain Surgical History Surgery Date(Month/Year) appendectomy disc surgery neck surgery deveated septum 10/2013 anal rodriguez 01/2014 colonoscopy 05/2017 Hospitalization History Reason Date(Month/Year) [facility] - Nasal polyp removal
--- OUTSIDE RECORDS SUMMARY | 2024-04-22 08:17 | XMS_ITS ---
[facility] Address [address] [place] [address] Care Team Providers Care Documentation Designer Name Role Phone Peewee Pan MD Primary Care Provider Unavaila Kerry Romero Unavailable [phone] Dario Luo Unavailable [phone] Allergies Allergen (clinical drug ingredient) Drug/Non Drug Allergy documented on EMR Reaction Allergy Type Onset Date Status Grass Mix Pollens Allergen Ext Unknown Drug Allergy Active Dust Mite Mixed Allergen Ext Unknown Drug Allergy Active REASON FOR VISIT Painful nail(s) aggrevated by shoes and causing difficulty standing/walking. Medications Medication SIG (Take, Route, Frequency, Duration) Notes Start Date End Date Status Trulicity 0.75 MG/0.5ML Subcutaneous Active Voltaren 1 % as directed Externally Active Tamsulosin HCl 0.4 MG 1 capsule Orally O nce a day for 30 day(s) Not-Taking Extra-Depth Diabetic Shoes with 3 Pair Custom heat-molded multi-density innersoles . for 1 year . Dx: foot deformity with preulcerative skin lesions for . 09/01/2014 Active Extra-Depth Diabetic Shoes with 3 Pair Custom heat-molded multi-density innersoles . 1pair shoes/3sets inserts . . for 1 year 08/22/2012 Not-Taking metFORMIN HCl 1000 MG 1 tablet with meal s Orally Twice a day for 30 day(s) Active Tresiba Active Aspirin 81 MG 1 tablet Orally Once a day for 30 day(s) Active Lovastatin 1 tablet with a meal Orally Once a day for 30 day(s) Active Lisinopril-hydroCHLOROt hiazide 40mg 1 tablet Orally Once a day for 30 day(s) Active amLODIPine Besylate 5 MG 1 tablet Orally Once a day for 30 day(s) Active Social History Tobacco Use: Social History [...] Signs Height 6 ft 1 in in 09/04/2023 Weight 250 lbs 09/04/2023 BMI 32.98 kg/m2 09/04/2023 Blood pressure systolic 120 mm Hg 09/04/19 24 Blood pressure diastolic 80 mm Hg 024 Encounters Encounter Location Date Provider Diagnosis [facility] [address] [address] 09/04/2023 Dario Luo Tinea unguium B35.1 ; [...] Treatment Notes Treatment Clinical Notes Section Notes 09/04/2023 Tinea unguium (ICD-10 - B35.1) 09/04/2023 Type 2 diabetes mellitus with other diabetic neurological complication (ICD-10 - E11.49) 09/04/2023 Pain in right toe(s) (ICD-10 - M79.674) 09/04/2023 Pain in left toe(s) (ICD-10 - M79.675) 09/04/2023 Tinea pedis (ICD-10 - B35.3) 09/04/2023 Xerosis cutis (ICD-10 - L85.3) 09/04/2023 Primary osteoarthritis, left ankle and foot (ICD-10 - M19.072) 09/04/2023 Primary osteoarthritis, right ankle and foot (ICD-10 - M19.071) Plan Of Treatment Medication Medication Name Sig Start Date Stop Date Notes Voltaren 1 % as directed Externally Next Appt Details Follow Up: 3 Months, Reason: Provider Name:Kerry Martinez esvin, 06/03/2024 03:30:00 PM, [address] [place], [address], Procedure Notes * Category Sub-Category Detail Notes [...] as necessary. Patient chooses, no pharmaceutical tx (43576) Keratoma Treatment Parring or Cutting o f Benign Hyperkeratotic Lesion(s) 57281 ( >4 Lesions) - The Benign hyperkeratotic lesions, as described above were pared, and/or cut utilizing a sterile #15 blade, tissue nippers, and/or dremel Progress Notes * Juan CRONINDOB:1945 (77 yo M)Acc No.[id number]:09/04/2023 Progress Note Patient:?Juan Cronin Provider:?Dario Luo DPM :1945???Age:77 Y???Sex:Male Golden e:09/04/2023 Address:[address] [place] [address] Pcp:Peewee Pan MD Subjective: * Chief Complaints: * ??? Painful nail(s) aggrevat ed by shoes and causing difficulty standing/walking. * HPI: ???Painful Nails:?Pt States Last PCP Visit:?Date:?08/05/2023 ???Toe pain:?Nature:?stiffness, aching.?Location:?B/L feet.?Duration:?several months.?Course:?intermittent, worse.?Aggravated by:?night.?Severity/Quality:?mild, [...] rodriguez 01/2014colonoscopy 05/2017 * Hospitalization/Major Diagno stic Procedure:?[facility] - Nasal polyp removal 05/13/14 * Family [...] ?Marital status: . 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 * Medications:?TakingVoltaren 1 % Gel as directed Externally amLODIPine Besylate 5 MG Tablet 1 tablet Orally Once a dayAspirin 81 MG Tablet Chewable 1 tablet Orally Once a dayLisinopril-hydroCHLOROthiazide 40mg Tablet 1 tablet Orally Once a dayLovastatin Tablet 1 tablet with a meal Orally Once a daymetFORMIN HCl 1000 MG Tablet 1 tablet with meals Orally Twice a dayTresiba Trulicity 0.75 MG/0.5ML Solution Pen- injector Subcutaneous Extra-Depth Diabetic Shoes with 3 Pair Custom heat-molded multi- density innersoles . . for 1 year . Dx: foot deformity with preulcerative skin lesionsTaking Voltaren 1 % Gel as directed Externally Taking amLODIPine Besylate 5 MG Tablet 1 tablet Orally Once a dayTaking Aspirin 81 MG Tablet Chewable 1 tablet Orally Once a dayTaking Lisinopril-hydroCHLOROthiazide 40mg Tablet 1 tablet Orally Once a dayTaking Lovastatin Tablet 1 tablet with a meal Orally Once a dayTaking metFORMIN HCl 1000 MG Tablet 1 tablet with meals Orally Twice a dayTaking Tresiba Taking Trulicity 0.75 MG/0.5ML Solution Pen-injector Subcutaneous Taking Extra-Depth Diabetic Shoes with 3 Pair Custom heat-molded multi-density innersoles . . for 1 year . Dx: foot deformity with preulcerative skin lesionsNot-Taking/PRNTamsulosin HCl 0.4 MG Capsule 1 capsule Orally Once a dayExtra-Depth Diabetic Shoes with 3 Pair Custom heat-molded multi-density innersoles . . 1pair shoes/3sets inserts . .Medication List reviewed and reconciled with the patientNot-Taking/PRN Tamsulosin HCl 0.4 MG Capsule 1 capsule Orally Once a dayNot-Taking/PRN Extra-Depth Diabetic Shoes with 3 Pair Custom heat-molded multi-density innersoles . . 1pair shoes/3sets inserts . .Medication List reviewed and reconciled with the patient * Allergies:?Grass Mix Pollens Allergen ExtDust Mite Mixed Allergen Extyes[Allergies Verified] Objective: * Vitals:?Ht: 6 ft 1 in, Wt:25 0, BMI:32.98, Shoe size:10.5, BP:120/80 mm Hg, BS:150. * ???Past Orders: ???Lab:HEMOGLOBIN A1C (GLYCO HEMOGLOBIN) (Order Date - 03/16/2023) (Collection Date - 03/16/2023) ? Value Reference Range ?HEMOGLOBIN A1C % (HH) 6.3 * Examination: ???Neurological: ?SENSORY:?exam demonstrates, reduced vibration lower extremity, B/L, at forefoot, 5.07 monofilament test performed at plantar aspects of 5 varied sites per foot, shows sensation, reduced, Neurological exam demonstrates mild pop monica 2nd toe ipj's.?Vascular: ?DP PULSES:? 02/16, B/L.?PT PULSES:? 4, B/L.?CAPILLARY FILL TIME:?3 secs. per digit. B/L.?SKIN TEMPERTURE GRADIENT OF THE LOWER EXTERMITIES:?normal.?HAIR GROWTH/TEXTURE/ELASTICITY/TURGOR:?normal.?PIGMENTATION:?normal.?EDEMA:?absent.?Nails: ?NAILS are:?elongated,overgrown,dystrophic,greater than 3mm thick,discolored and friable [...] as necessary. Patient chooses, no pharmaceutical tx (50979).?Keratoma Treatment:?Parring or Cutting of Benign Hyperkeratotic Lesion(s)?24074 ( >4 Lesions) - The Benign hyperkeratotic lesions, as described above were pared, and/or cut utilizing a sterile #15 blade, tissue nippers, and/or dremel.? * Procedure Codes:?67245 DEBRI DE NAIL, 6 OR MORE, Modifiers: XS 59960 TRIM SKIN LESIONS, OVER 4, Modifiers: XS * Follow Up:?3 Months * Images: * Sign off status: Completed true * Provider:?Dario Luo DPM Date:? 024 Generated for Sharath sanches/Kary/eTyeeitting on:?04/22/2024 08:16 AM EDT History and Physical Notes * HPI (History of Present Illness) Category Sub-Category Detail Notes Category Not es Toe pain Nature: stiffness, aching Location: B/L feet Duration: several months Course: intermittent, worse Aggravated by: night Severity/Quality: mild, moderate Painful Nails Pt States Last PCP Visit: Date:: 08/05/2023 Examination Category Sub-Category Detail Notes Category Not [...]
--- OUTSIDE RECORDS SUMMARY | 2024-04-22 08:17 | XMS_ITS ---
Author Organization [facility] Address [address] [facility] [place] [address] Care Team Providers Care Web Programmer Name Role Phone Peewee Pan MD Primary Care Provider Kerry Guzman Unavailable [phone] Allergies Allergen (clinical drug ingredient) Drug/Non Drug Allergy documented on EMR Reaction Allergy Type Onset Date Status Grass Mix Pollens Allergen Ext Unknown Drug Allergy Active Dust Mite Mixed Allergen Ext Unknown Drug Allergy Active REASON FOR VISIT At Risk Footcare Medications Medication SIG (Take, Route, Frequency, Duration) Notes Start Date End Date Status metFORMIN HCl 1000 MG 1 tablet with meal s Orally Twice a day for 30 day(s) Active Tresiba Active Lovastatin 1 tablet with a meal Orally Once a day for 30 day(s) Active Trulicity 0.75 MG/0.5ML Subcutaneous Not-Taking Extra-Depth Diabetic Shoes with 3 Pair Custom heat-molded multi-density innersoles . for 1 year . Dx: foot deformity with preulcerative skin lesions for . 09/01/2014 Active amLODIPine Besylate 5 MG 1 tablet Orally Once a day for 30 day(s) Active Aspirin 81 MG 1 tablet Orally Once a day for 30 day(s) Active Extra-Depth Diabetic Shoes with 3 Pair Custom heat-molded multi-density innersoles . 1pair shoes/3sets inserts . . for 1 year 08/22/2012 Not-Taking Voltaren 1 % as directed Externally Active Lisinopril-hydroCHLOROt hiazide 40mg 1 tablet Orally Once a day for 30 day(s) Active Tamsulosin HCl 0.4 MG 1 capsule Orally O nce a day for 30 day(s) Not-Taking Social History Tobacco Use: Social History Observation [...] Polyneuropathy due to type 2 diabetes mellitus ([id number]) Type 2 diabetes mellitus with diabetic polyneuropathy (E11.42) Active confirmed Vital Signs Height 6 ft 1 in in 03/07/2024 Weight 250 lbs 03/07/2024 BMI 32.98 kg/m2 03/07/2024 Blood pressure systolic 120 mm Hg 03/07/19 Blood pressure diastolic 80 mm Hg 025 Procedures Procedure Date Ordered Date Performed Result Body Sit e 83358-BCYQOGV NAIL, 6 OR MORE 03/07/2024 N/A 86603-TSLT SKIN LESIONS, 2 TO 4 03/07/2024 N/A Encounters Encounter Location Date Provider Diagnosis [facility] [address] [address] 03/07/2024 Kerry Das Type 2 diabetes mellitus with diabetic polyneuropathy E11.42 and Tinea unguium B35.1 Assessments Encounter Date Diagnosis (ICD Code) Assessment Notes Treatment Notes Treatment Clinical Notes Section Notes 03/07/2024 Type 2 diabetes mellitus with diabetic polyneuropathy (ICD-10 - E11.42) 03/07/2024 Tinea unguium (ICD-10 - B35.1) Plan Of Treatment Pending Test Test Name Order Date 35647-YVHTZIB NAIL, 6 OR MORE 03/07/2024 97607-TUWC SKIN LESIONS, 2 TO 4 03/07/19 25 Next Appt Details Follow Up: prn, Reason: Provider Name:Kerry mcallister, 06/03/2024 03:30:00 PM, [address] [place] [address], [phone], Procedure Notes * Category Sub-Category Detail Notes Debride Nail 6-10 Nail debridement Due to the cl inical pathology outlined in the exam findings, performance of this nail treatment is medically necessary as its management by an unskilled/untrained nonprofessional would put this patients foot and overall health at risk. Therefore, debridement to affected nail(s), as described in exam ( TA, T1, T2, T3, T4, T5, T6, T7, T8, T9, ), was performed exclusively by the physician of record to reduce/remove overall nail length, girth, thickness, subungual debris, and necrotic tissue, by manual and/or electrical means through the use of a nail nipper and/or dremel-type pigment grinder, to a more viable healthy nail plate or bed tissue 6-10 nails in total. Silver nitrate was used for any petechial bleeding as necessary. Definitive antifungal treatment options, both pharmaceutical and surgical, have been reviewed and discussed with the patient. The patient solely prefers the use of intermittent/as needed professional debridement services for their nail condition and understands the need for additional periodic treatments to maintain effectiveness in symptomatic relief - 30201 Keratoma Treatment Parring or Cutting o f Benign Hyperkeratotic Lesion(s) (-56) 2-4 Lesions - Due to the at risk nature of the patients medical condition as documented in the exam findings, performance of this keratoderma treatment is medically necessary as its management by an unskilled/untrained nonprofessional would put this patients foot and overall health at risk. Therefore, the benign hyperkeratotic lesions, 2 ) in total, locations as stated and described in the exam ( plantar heels B/L), were pared, and/or cut utilizing a sterile 15 blade, tissue nippers, and/or power dremel instrumentation by the physician of record - 03430 Progress Notes * Juan TALAVERADOB:1945 (78 yo M)Acc No.[id number]:03/07/2024 Progress Note Patient:?Juan TALAVERA Provider:?Kerry Das DPM :1945???Age:78 Y???Sex:Male Golden e:03/07/2024 Address:[address] [place] [address], [place], [id number] Pcp:Peewee Pan MD Subjective: * Chief Complaints: * ???At Risk Footcare * HPI: ???At Risk footcare:?Pt States Last PCP Visit:?Date?10/16/2023 * ROS:?General/Constitutional:?Nausea?denies.?Vomiting?denies.?Hunger Thirst?denies.?Loss appetite?denies.?Chills?denies.?Fatigue?denies.?Fever?denies.?Night Sweats?denies.?Unexplained weight loss?denies.?Ophthalmologic:?Blurred vision?denies.?Red eye?denies.?HEENTM:?Dentures?denies.?Dizziness?denies.?Glasses/contacts?denies, admits.?Retinopathy?denies.?Blurred/double vision?denies.?TMJ?denies.?Discharge/drainage?denies.?Implants?denies.?Hard of hearing ?denies.?Difficulty chewing/swallowing/speaking?denies.?Nose bleeds?denies.?Sore mouth?denies.?Swollen glands?denies.?Respiratory:?On O xygen?denies.?Pneumonia/pleurisy?denies.?Bronchitis?denies.?Emphysema?denies.?Co ughing?denies.?Cough blood?denies.?Shortness of breath?denies.?Wheezing?denies.?Cardiovascular:?Pacemaker?denies.?MVP?denies.?WPW?denies.?CHF?denies.?Heart attack?denies.?Septal defect?denies.?Rapid beat?denies.?Chest pain ?denies.?Atrial Fib.?denies.?Murmur/Palpitations?denies.?Gastrointestinal:?Hemorrhoids?denies.?Stomach/Abdominal pain?denies.?Dark blood stool?denies.?Irritable bowel ?denies.?Constipation?denies.?Diarrhea?denies.?Vomiting?denies.?Hematology:?Swelling?denies.?Bruising?denies.?Bleeding problem?denies.?Genitourinary:?Blood urine?denies.?Frequent/Painfu/urination/bladder control?denies.?Kidney stones?denies.?Infection (UTI)?denies.?Nephropathy?denies.?Musculoskeletal:?Hammertoes?denies.?Bunions?denies.?Scoliosis/kyphosis?denies.?Muscle cramps / walking?denies.?Generalized aches and pains?denies.?Weakness?denies.?Integ.:?Grissom?denies.?Scars?denies.?Corns/calluses?denies.?Ingrown nails?denies.?Painful nails?admits, admits.?Rashes?denies.?Neurologic:?Difficulty sleeping?denies.?Bipolar?denies.?Brain disorder?denies.?Balance t rouble?denies.?Confusion?denies.?Fainting/blackouts?denies.?Headache?denies.?Barry mors?denies.? * Medical History:? * Surgical History:?appendecto my disc surgery neck surgery deveated septum nal rodriguez 01/2014colonoscopy 05/2017 * Hospitalization/Major Diagno stic Procedure:?[facility] - Nasal polyp removal 05/13/14 * Family History:?Mother: dece ased, diagnosed with Unspecified essential hypertension.?Father: , diagnosed with Unspecified essential hypertension.?Daughter(s): alive.?Son(s): alive.?Spouse: alive.?1 son(s) , 1 daughter(s) . .? patient denies family history. * Social History:?Tobacco Use:?Tobacco use other than smoking?Are you an other tobacco user??No ?Tobacco Control (Standard)?Tobacco use:?Nonsmoker ?Additional Findings: Tobacco non-user?Current nonsmoker ???Drugs/Alcohol:?Drugs?Have you used drugs other than those for medical reasons in the past 12 months??No ???Miscellaneous:?Caffeine: yes, frequency:, 3 cups per day. ?Children: yes. ?Exercise: yes, walking, housework,Shopping. ?Marital status: . 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 ???Drug/Alcohol:?AUDIT-C (Standard)?Did you have a drink containing alcohol in the past year??No ?Points?0 ?Interpretation?Negative * Medications:?TakingVoltaren 1 % Gel as directed Externally amLODIPine Besylate 5 MG Tablet 1 tablet Orally Once a day Aspirin 81 MG Tablet Chewable 1 tablet Orally Once a day Lisinopril-hydroCHLOROthiazide 40mg Tablet 1 tablet Orally Once a day Lovastatin Tablet 1 tablet with a meal Orally Once a day metFORMIN HCl 1000 MG Tablet 1 tablet with meals Orally Twice a day Tresiba Extra-Depth Diabetic Shoes with 3 Pair Custom heat-molded multi-density innersoles . . for 1 year . Dx: foot deformity with preulcerative skin lesions Taking Voltaren 1 % Gel as directed Externally Taking amLODIPine Besylate 5 MG Tablet 1 tablet Orally Once a day Taking Aspirin 81 MG Tablet Chewable 1 tablet Orally Once a day Taking Lisinopril-hydroCHLOROthiazide 40mg Tablet 1 tablet Orally Once a day Taking Lovastatin Tablet 1 tablet with a meal Orally Once a day Taking metFORMIN HCl 1000 MG Tablet 1 tablet with meals Orally Twice a day Taking Tresiba Taking Extra-Depth Diabetic Shoes with 3 Pair Custom heat-molded multi-density innersoles . . for 1 year . Dx: foot deformity with preulcerative skin lesions Not-Taking/PRNTrulicity 0.75 MG/0.5ML Solution Pen-injector Subcutaneous Tamsulosin HCl 0.4 MG Capsule 1 capsule Orally Once a day Extra-Depth Diabetic Shoes with 3 Pair Custom heat-molded multi-density innersoles . . 1pair shoes/3sets inserts . . Medication List reviewed and reconciled with the patientNot-Taking/PRN Trulicity 0.75 MG/0.5ML Solution Pen-injector Subcutaneous Not-Taking/PRN Tamsulosin HCl 0.4 MG Capsule 1 capsule Orally Once a day Not-Taking/PRN Extra-Depth Diabetic Shoes with 3 Pair Custom heat-molded multi-density innersoles . . 1pair shoes/3sets inserts . . Medication List reviewed and reconciled with the patient * Allergies:?Grass Mix Pollens Allergen ExtDust Mite Mixed Allergen Extyes[Allergies Verified] Objective: * Vitals:?Ht: 6 ft 1 in, Wt:25 0, BMI: 32.98, Shoe size:10.5, BP:120/80mm Hg, BS:160, Ht-cm: 185.42 cm, Wt-k.4 kg. * ???Past Orders: ???Lab:HEMOGLOBIN A1C (GLYCO HEMOGLOBIN) (Order Date - 01/26/2024) (Collection Date & Time - 02/05/2024 10:59 AM) ? Value Reference Range ?HEMOGLOBIN A1C % (HH) 6.2 * Examination: ???Ophthalmology Referral: ?DIABETES EYE EXAM?Procedure Performed:?Yes ?Date of Exam Performed?11/15/2023 ?Diabetic Retinopathy Screening:?Yes ?Findings of Diabetic Eye Exam:?no retinopathy?Neurological: ?SENSORY:? Neurological exam demonstrates, reduced light touch sensation, reduced sharp/dull pin prick discrimination , B/L, 5.07 monofilament test performed at plantar aspects of 5 varied sites per foot shows sensation, reduced , B/L.?Nails: ?NAILS are:?Elongated, overgrown, dystrophic, lytic, greater than 3mm thick, discolored and friable with crumbly malodorous subungual debris.?Dermatologic: ?SKIN FINDINGS:?Skin exam reveals Keratotic lesion(s) located at plantar heels B/L.?Vascular: ?DP PULSES (B):?1/4, B/L.?PT PULSES (B):? /, B/L.?CAPILLARY FILL TIME:?3 secs. per digit. B/L.?TROPHIC CONDITION-TEXTURE/ELASTICITY/TURGOR/HAIR GROWTH (B):?normal.?TEMPERTURE GRADIENT (C):?normal.?PIGMENTATION:?normal.?EDEMA (C):?absent.?Orthopedic: ?MUSCLE STRENGTH:?5/5 all groups in a symmetrical fashion, B/L.?General Examination: ?GENERAL APPEARANCE:?Reveals a pleasant, alert, well nourished, well- developed, well hydrated individual, who demonstrates proper attention to hygiene/body habitus, and is in no acute distress, Pt serves as own historian for office visit today.?ORIENTED:?person, place, and time.? Assessment: * Assessment: 1.?Type 2 diabetes mellitus with diabetic polyneuropathy - E11.42 (Primary)???2.?Tinea unguium - B35.1??? Plan: * Treatment: * Procedures:?Debride Nail 6-10:?Nail debridement?Due to the clinical pathology outlined in the exam findings, performance of this nail treatment is medically necessary as its management by an unskilled/untrained nonprofessional would put this patients foot and overall health at risk. Therefore, debridement to affected nail(s), as described in exam ( TA, T1, T2, T3, T4, T5, T6, T7, T8, T9, ), was performed exclusively by the physician of record to reduce/remove overall nail length, girth, thickness, subungual debris, and necrotic tissue, by manual and/or electrical means through the use of a nail nipper and/or dremel-type pigment grinder, to a more viable healthy nail plate or bed tissue 6- 10 nails in total. Silver nitrate was used for any petechial bleeding as necessary. Definitive antifungal treatment options, both pharmaceutical and surgical, have been reviewed and discussed with the patient. The patient solely prefers the use of intermittent/as needed professional debridement services for their nail condition and understands the need for additional periodic treatments to maintain effectiveness in symptomatic relief - 94099.?Keratoma Treatment:?Parring or Cutting of Benign Hyperkeratotic Lesion(s)?(-56) 2-4 Lesions - Due to the at risk nature of the patients medical condition as documented in the exam findings, performance of this keratoderma treatment is medically necessary as its management by an unskilled/untrained nonprofessional would put this patients foot and overall health at risk. Therefore, the benign hyperkeratotic lesions, 2 ) in total, locations as stated and described in the exam ( plantar heels B/L), were pared, and/or cut utilizing a sterile 15 blade, tissue nippers, and/or power dremel instrumentation by the physician of record - 11636.? * Procedure Codes:?18698 DEBRI DE NAIL, 6 OR MORE, Modifiers: XS 56096 TRIM SKIN LESIONS, 2 TO 4, Modifiers: XS * Follow Up:?prn * Images: * Sign off status: Completed true * Provider:?Kerry Das DPM Date:?0 03/07/2024 Generated for Sharath sanches/Kary/Prabhakarsmitting on:?04/22/2024 08:16 AM EDT History and Physical Notes * HPI (History of Present Illness) Category Sub-Category Detail Notes Category Not es At Risk footcare Pt States Last PCP Visit: Date: 4 Examination Category Sub-Category Detail Notes Category Not es Neurological SENSORY: Neurological exa m demonstrates, reduced light touch sensation, reduced sharp/dull pin prick discrimination , B/L, 5.07 monofilament test performed at plantar aspects of 5 varied sites per foot shows sensation, reduced , B/L Dermatologic SKIN FINDINGS: Skin exam reveal s Keratotic lesion(s) located at plantar heels B/L Orthopedic MUSCLE STRENGTH: 5/5 all groups in a symmetrical fashion, B/L General Examination GENERAL APPEARANCE: Reveals a pleasant, alert, well nourished, well-developed, well hydrated individual, who demonstrates proper attention to hygiene/body habitus, and is in no acute distress, Pt serves as own historian for office visit today ORIENTED: person, place, and t diana Ophthalmology Referral DIABETES EYE EXAM Procedure Perform ed:: Yes ?Date of Exam Performed: 11/15/2023 Diabetic Retinopathy Screening:: Yes Findings of Diabetic Eye Exam:: no retin opathy Vascular DP PULSES (B): 1/4, B/L PT PULSES (B): 1/4, B/L CAPILLARY FILL TIME: 3 secs. per digit. B/L TEMPERTURE GRADIENT (C): normal TROPHIC CONDITION-TEXTURE/ELASTICITY/TUR GOR/HAIR GROWTH (B): normal EDEMA (C): absent PIGMENTATION: normal Nails NAILS are: Elongated, overg rown, dystrophic, lytic, greater than 3mm thick, discolored and friable with crumbly malodorous subungual debris
[2024-04-22 09:23] LABS: Estimated Average Glucose 180 mg/dL; Hemoglobin A1c % 7.9 % (<6.0)
[2024-04-22 09:51] LABS: Glucose Fasting 149 mg/dL (60-99)
== END 2024-04-22 08:11 | disposition home or self-care (01) ==
LOC: HO.LAB 08:10
PROVIDERS: PCP Internal Medicine; Visit Provider Internal Medicine
DX: R73.9 Hyperglycemia, unspecified (principal)
CPT/HCPCS: 36415; 82947; 83036

== ENCOUNTER 2024-04-25 10:36 | Outpatient (AMB) | payer MEDICARE, OTHER, SELFPAY ==
[2024-04-25 10:39] VITALS: BP 122/74; PULSE 76; O2SAT 94; BMI 33.7
--- NOTE | 2024-04-25 10:39 | MHC.PC.OV ---
Vital Signs 04/25/24 10:39 Height 6 ft 1 in Weight 255 lb 6 oz BMI 33.7 BP 122/74 Blood Pressure Location Lt brachial Position Sitting Pulse 76 Pulse Source Pulse Oximeter Pulse Oximetry (%) 94 Oxygen Delivery Method Room Air Intake Visit Reasons: 3mth f/u Manager Strategic Marketing Required: No Accompanied by: Self / Same As Patient Allergies grass,trees etc Allergy (Unknown, Uncoded 04/25/24 10:40) Unknown Medication List - Last Reconciled 04/25/24 by Peewee Pan MD amlodipine 5 mg PO DAILY 90 days aspirin (Adult Low Dose Aspirin) 81 mg PO DAILY cholecalciferol (vitamin D3) 50 mcg PO DAILY 90 days dulaglutide (Trulicity) 3 mg subcut MO@0900 dulaglutide (Trulicity) 1.5 mg (0.5 mL) subcut QWEEK 90 days insulin degludec (Tresiba FlexTouch U-100 insulin) 20 units (0.2 mL) subcut DAILY 90 days lisinopril-hydrochlorothiazide 20-12.5 mg 1 tab PO BID lovastatin 40 mg PO DAILY 90 days metformin 1,000 mg PO BID omeprazole 20 mg PO BID pen needle, diabetic As directed Tobacco use date assessed: 04/25/24 Fall risk assessment: No Falls in past year Last assessed Fall Risk: 04/25/24 Dental Screening Dental Screen Date: 04/25/24 Did you have a dental visit in the last 12 months?: Yes Did you have a dental problem in the last 6 months where you did not have access to dental care?: No Was dental information given to patient?: Patient has dentist HPI 3mth f/u HPI Details DM in poor control; will increase metformin to 1000mg bid [facility] Medical History Rectal bleeding Type 2 diabetes mellitus with obesity Obesity Benign prostatic hyperplasia with lower urinary tract symptoms Feeling of incomplete bladder emptying Nocturia Non-toxic multinodular goiter Dyslipidemia Hypertension Diabetic neuropathy associated with type 2 diabetes mellitus 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 Diabetes type 2, controlled Diabetes mellitus Vitamin D deficiency Surgical History History of biopsy History of excision of lesion History of laminectomy History of appendectomy Family History Father Old age Mother Heart disease Social History Housing: House Alcohol intake: current Alcohol intake frequency: holidays/special occasions only Patient Tobacco Use Status: Former Tobacco user Tobacco use type: Cigarette e-Cigarette/Vaping Use: Never Used Second Hand Smoke Exposure: No service: No Current occupational status: retired Cognitive needs: No Hearing needs: No Vision needs: Yes Questionnaire PHQ-9 Over the last 2 weeks, how often have you been bothered by any of the following problems? 1. Little interest or pleasure in doing things: not at all 2. Feeling down, depressed, or hopeless: not at all 3. Trouble falling or staying asleep, or sleeping too much: not at all 4. Feeling tired or having little energy: not at all 5. Poor appetite or overeating: not at all 6. Feeling bad about yourself - or that you are a failure or have let yourself or your family down: not at all 7. Trouble concentrating on things, such as reading the newspaper or watching television: not at all 8. Moving or speaking so slowly that other people could have noticed. Or the opposite - being so fidgety or restless that you have been moving around a lot more than usual: not at all 9. Thoughts that you would be better off or of hurting yourself in some way: not at all Total score: 0 Depression Screening Interpretation: Negative Depression Screening Done: Yes 08023 - PHQ-9 Billing: Yes Source: Developed by Drs. Filiberto Smith, Zofia Fonseca, Mohan Tello and colleagues, with an educational geoff from [employer]. Thrive Questionnaire Date Thrive assessed: 04/25/24 I am a: Patient What is your living situation today?: I have a steady place to live Within the past 12 months, did the food you bought not last and you didn't have the money to get more?: Never true Within the past 12 months, did you worry whether your food would run out before you got money to buy more?: Never true Do you have trouble paying for medicines?: No Do you have trouble getting transportation to medical appointments?: No Do you have trouble paying your heating and electricity bill?: No Do you have trouble taking care of your child, family member or friend?: No Do you have trouble with day-to-day activities such as bathing, preparing meals, shopping, managing finances, etc.?: No Are you currently unemployed and looking for a job?: No Are you interested in more education?: No Please select the resources that you would like help with: None Currently or been in a relationship where the following occur: No concerns reported THRIVE Score: 0 AUDIT C Alcohol Use Questionnaire (AUDIT-C) 1. How often do you have a drink containing alcohol?: Monthly or less 2. How many drinks containing alcohol do you have on a typical day when you are drinking?: 1 or 2 3. How often do you have six or more drinks on one occasion?: Never Total Score: 1 BRIAN-7 AMB Questionnaire BRIAN-7 Date BRIAN - 7 assessed: 04/25/24 Feeling nervous, anxious, or on edge: 0 = Not at all Not being able to stop or control worryin = Not at all Worrying too much about different things: 0 = Not at all Trouble relaxin = Not at all Being so restless that it is hard to sit still: 0 = Not at all Becoming easily annoyed or irritable: 0 = Not at all Feeling afraid as if something awful might happen: 0 = Not at all Total BRIAN-7 score (0-4 normal; 5-9 mild; 10-14 moderate; 15-21 severe): 0 Source: Developed by Drs. Filiberto Smith, Zofia Fonseca, Mohan Tello and colleagues, with an educational geoff from [employer]. BRIAN-7 Assessment Billing BRIAN-7 Assessment Tool: BRIAN-7 Assessment 35142 Review of Systems Const Denies chills, Denies headache(s) and Denies weight loss ENT Denies headache(s) Card Denies chest pain, Denies syncope, Denies irregular heart rhythm and Denies dyspnea Resp Denies chest congestion, Denies cough and Denies dyspnea GI Denies abdominal pain, Denies change in stool character, Denies nausea and Denies vomiting Musc Denies deformity and Denies joint swelling Neuro Denies syncope and Denies headache(s) Physical exam (Primary Care) Vital Signs: Last Vital Signs Pulse 76 04/25/24 10:39 BP 122/74 04/25/24 10:39 Pulse Ox 94 04/25/24 10:39 Oxygen Delivery Method Room Air 04/25/24 10:39 BMI result Body Mass Index 33.7 Tobacco/Smoking Status: Tobacco use Status Tobacco use date assessed 04/25/24 04/25/24 10:44 Patient Tobacco Use Status Former Tobacco user 04/25/24 10:44 Tobacco use type Cigarette 04/25/24 10:44 e-Cigarette/Vaping Use Never Used 04/25/24 10:44 PHQ-9: PHQ-9 Score PHQ-9: Total score 0 04/25/24 10:44 Depression Screening Interpretation: Negative Thrive Assessment: Date of Thrive Assessment Date Thrive assessed 04/25/24 04/25/24 10:44 Currently or been in a relationship where the following occur: No concerns reported Const General: cooperative, comfortable, no acute distress and alert Neck Neck: Yes no lymphadenopathy Thyroid: Thyroid normal Resp Effort & Inspection: normal respiratory effort Auscultation: clear to auscultation bilaterally Percussion: percussion normal Cardio Jugular venous distension: no JVD Palpation: normal PMI Rate: regular rate Rhythm: regular rhythm Heart sounds: S1 normal heart sound present and S2 normal heart sound present GI Inspection: Yes normal to inspection Palpation (GI): No hepatosplenomegaly present Skin General skin exam: no rashes or lesions noted Extrem General: Yes no clubbing, cyanosis or edema Coding Level of Care Code Est Pt Level 3 (27796) Diagnoses Type 2 diabetes mellitus with obesity E11.69; E66.9 Additional Codes BRIAN-7 Assessment Billing - BRIAN-7 Assessment Tool: BRIAN-7 Assessment 07498 ([id number]) PHQ-9 - 59759 - PHQ-9 Billing: Yes ([id number]) Assessment & Plan Assessment & Plan (1) Type 2 diabetes mellitus with obesity: Code(s): E11.69 - Type 2 diabetes mellitus with other specified complication; E66.9 - Obesity, unspecified Category: Medical Plan: in poor control; increase metformin to 1000mg bid Medications: Changed From metformin 1,000 mg PO BEDTIME 90 tabs 0RF To metformin 1,000 mg PO BID 180 tabs 0RF
--- OUTSIDE RECORDS SUMMARY | 2024-04-25 13:25 | XMS_ITS ---
Author Organization [facility] Address [address] [facility] [place] [address] Care Team Providers Care Tie Mill Operator Name Role Phone Peewee Pan MD Primary Care Provider Unavaila Kerry Romero Unavailable [phone] Dario Luo Unavailable [phone] Allergies Allergen (clinical drug ingredient) Drug/Non Drug [...] 024 Encounters Encounter Location Date Provider Diagnosis [facility] [address] [address] 09/04/2023 Dario Luo Tinea unguium B35.1 ; [...] Name:Kerry Martinez esvin, 06/03/2024 03:30:00 PM, [address] [place], [address], Procedure Notes * Category Sub-Category Detail Notes [...] as necessary. Patient chooses, no pharmaceutical tx (68437) Keratoma Treatment Parring or Cutting o f Benign Hyperkeratotic Lesion(s) 10554 ( >4 Lesions) - The Benign hyperkeratotic lesions, as described above were pared, and/or cut utilizing a sterile #15 blade, tissue nippers, and/or dremel Progress Notes * Juan CRONINDOB:1945 (77 yo M)Acc No.[id number]:09/04/2023 Progress Note Patient:?Juan Cronin Provider:?Dario Luo DPM :1945???Age:77 Y???Sex:Male Golden e:09/04/2023 Address:[address] [place] [address] Pcp:Peewee Pan MD Subjective: * Chief Complaints: [...] rodriguez 01/2014colonoscopy 05/2017 * Hospitalization/Major Diagno stic Procedure:?[facility] - Nasal polyp removal 05/13/14 * Family [...] as necessary. Patient chooses, no pharmaceutical tx (32332).?Keratoma Treatment:?Parring or Cutting of Benign Hyperkeratotic Lesion(s)?06485 ( >4 Lesions) - The Benign hyperkeratotic lesions, as described above were pared, and/or cut utilizing a sterile #15 blade, tissue nippers, and/or dremel.? * Procedure Codes:?26746 DEBRI DE NAIL, 6 OR MORE, Modifiers: XS 28604 TRIM SKIN LESIONS, OVER 4, Modifiers: XS * Follow Up:?3 Months * Images: * Sign off status: Completed true * Provider:?Dario Luo DPM Date:? 024 Generated for Sharath sanches/Kary/eTyeeitting on:?04/25/2024 01:25 PM EDT History and Physical Notes * HPI [...]
--- OUTSIDE RECORDS SUMMARY | 2024-04-25 13:25 | XMS_ITS | Patient Health Record ---
Author Organization [facility] Address [address] [facility] [place] [address] Care Team Providers Care Sample Driller Name Role Phone Viviane RENDON, Peewee Primary Care Provider Kerry Guzman Unavailable [phone] Dario Luo Unavailable [phone] Allergies Allergen (clinical drug ingredient) Drug/Non Drug [...] Polyneuropathy due to type 2 diabetes mellitus (179720893) Type 2 diabetes mellitus with diabetic polyneuropathy (E11.42) Active confirmed Vital Signs Blood pressure diastolic 80 mm Hg 03/07/2024 Height 6 ft 1 in in 03/07/2024 Blood pressure systolic 120 mm Hg 03/07/2024 Weight 250 lbs 03/07/2024 BMI 32.98 kg/m2 03/07/2024 Procedures Procedure Date Ordered Date Performed Result Body Sit e 89445-PTHJORX NAIL, 6 OR MORE 03/07/2024 N/A 95787-FATN SKIN LESIONS, 2 TO 4 03/07/2024 N/A Encounters Encounter Location Date Provider Diagnosis [facility] [place] [address] [place] [address] 05/25/2023 Dario Luo Tinea unguium B35.1 ; Type 2 diabetes mellitus with other diabetic neurological complication E11.49 ; Pain in right toe(s) M79.674 ; Pain in left toe(s) M79.675 ; Tinea pedis B35.3 ; Xerosis cutis L85.3 ; Primary osteoarthritis, left ankle and foot M19.072 and Primary osteoarthritis, right ankle and foot M19.[address] [address] 09/04/2023 Dario Luo Tinea unguium B35.1 ; Type 2 diabetes mellitus with other diabetic neurological complication E11.49 ; Pain in right toe(s) M79.674 ; Pain in left toe(s) M79.675 ; Tinea pedis B35.3 ; Xerosis cutis L85.3 ; Primary osteoarthritis, left ankle and foot M19.072 and Primary osteoarthritis, right ankle and foot M19.[address] [address] 12/07/2023 Dario Luo Tinea unguium B35.1 ; Type 2 diabetes mellitus with other diabetic neurological complication E11.49 ; Pain in right toe(s) M79.674 ; Pain in left toe(s) M79.675 ; Tinea pedis B35.3 ; Xerosis cutis L85.3 ; Primary osteoarthritis, left ankle and foot M19.072 and Primary osteoarthritis, right ankle and foot M19.[address] [address] 03/07/2024 Kerry Das Type 2 diabetes mellitus [...] Treatment Pending Test Test Name Order Date 43773-ZMRCOMG NAIL, 6 OR MORE 08/22/2012 04842-ZMXOOPW NAIL, 6 OR MORE 02/25/2013 48822-RFOZUJA NAIL, 6 OR MORE 08/26/2013 40930-HWVKCKN NAIL, 6 OR MORE 02/26/2014 71935-YLMVMPA NAIL, 6 OR MORE 09/01/2014 05334-DHUULBJ NAIL, 6 OR MORE 12/29/2014 16714-GYVOIEN NAIL, 6 OR MORE 05/06/2015 96984-EDLJGZQ NAIL, 6 OR MORE 08/19/2015 37123-AFCVBHI NAIL, 6 OR MORE 11/25/2015 79645-NWXSPUA NAIL, 6 OR MORE 02/24/2016 94449-UGLQXSA NAIL, 6 OR MORE 05/25/2016 40370-VNTUUGC NAIL, 6 OR MORE 08/29/2016 25595-EHTWJPI NAIL, 6 OR MORE 11/28/2016 47519-OJLNDLD NAIL, 6 OR MORE 03/09/2017 67640-CHNFLBV NAIL, 6 OR MORE 06/12/2017 81678-OLXGXOL NAIL, 6 OR MORE 09/11/2017 19292-PUTPSET NAIL, 6 OR MORE 12/06/2017 76045-ISATEET NAIL, 6 OR MORE 03/07/2024 70612-EMTJ SKIN LESIONS, OVER 4 05/01/19 19 80061-CXCK SKIN LESIONS, OVER 4 09/04/19 19 49635-JWHF SKIN LESIONS, OVER 4 01/03/20 19 47504-PEMB SKIN LESIONS, OVER 4 04/10/19 20 64655-TUUI SKIN LESIONS, OVER 4 07/17/19 20 38021-YOAR SKIN LESIONS, OVER 4 10/28/19 20 76359-UYDN SKIN LESIONS, OVER 4 01/27/20 20 16039-SFID SKIN LESIONS, OVER 4 04/28/19 21 20806-TYRI SKIN LESIONS, OVER 4 07/30/19 21 16271-EVUR SKIN LESIONS, OVER 4 10/29/19 21 41697-EYYM SKIN LESIONS, OVER 4 02/11/20 21 38410-FWJJ SKIN LESIONS, OVER 4 05/13/19 22 93808-KLSX SKIN LESIONS, OVER 4 12/07/19 18 14561-HBCQ SKIN LESIONS, OVER 4 09/12/19 18 84063-QWSN SKIN LESIONS, OVER 4 06/13/19 18 58731-LPRT SKIN LESIONS, OVER 4 03/09/19 18 07096-PZKM SKIN LESIONS, OVER 4 11/29/19 17 38723-QXNU SKIN LESIONS, OVER 4 05/26/19 17 95024-YIIL SKIN LESIONS, OVER 4 08/30/19 17 03272-QTFC SKIN LESIONS, OVER 4 02/23/19 17 37230-CGQP SKIN LESIONS, OVER 4 11/25/19 16 10292-ANHL SKIN LESIONS, OVER 4 08/19/19 16 80088-WDLC SKIN LESIONS, OVER 4 05/06/19 16 95388-GWMM SKIN LESIONS, OVER 4 12/30/19 15 63303-UHDM SKIN LESIONS, OVER 4 09/02/19 15 97776-IRWA SKIN LESIONS, OVER 4 02/26/19 15 46787-PFGV SKIN LESIONS, OVER 4 08/27/19 14 83247-SJUY SKIN LESIONS, OVER 4 02/25/19 14 20578-LSCJ SKIN LESIONS, OVER 4 08/23/19 13 88959-GBUW SKIN LESIONS, 2 TO 4 03/07/19 Next Appt Details Provider Name:Kerry Michelle mcallister, 06/03/2024 03:30:00 PM, [address] [place], [address], Insurance Providers Payer Name Payer Address Payer Phone Subscriber Number Group Number Insured Name Patient Relationship to Insured Coverage Start Date Coverage End Date Medicare National [employer] [address] [place] [address] [id number] Juan Talavera Self - patient is the insured 3 [employer]) [address] [place] [address] [id number] Juan Talavera Self - patient is the insured Medical (General) History Medical History History ICD Code neuropathy mumps measles high blood pressure diabetic type II chicken pox back, hip, knee pain Surgical History Surgery Date(Month/Year) appendectomy disc surgery neck surgery deveated septum 10/2013 anal rodriguez 01/2014 colonoscopy 05/2017 Hospitalization History Reason Date(Month/Year) [facility] - Nasal polyp removal
--- OUTSIDE RECORDS SUMMARY | 2024-04-25 13:25 | XMS_ITS ---
Author Organization [facility] Address [address] [facility] [place] [address] Care Team Providers Care Unloader Name Role Phone Peewee Pan MD Primary Care Provider Unavaila Kerry Romero Unavailable [phone] Dario Luo Unavailable [phone] Allergies Allergen (clinical drug ingredient) Drug/Non Drug [...] 12/07/2023 Encounters Encounter Location Date Provider Diagnosis [facility] [address] [address] 12/07/2023 Dario Luo Tinea unguium B35.1 ; [...] Provider Name:Kerry mcallister, 06/03/2024 03:30:00 PM, [address] [place], [address], Procedure Notes * Category Sub-Category Detail Notes [...] as necessary. Patient chooses, no pharmaceutical tx (12366) Keratoma Treatment Parring or Cutting o f Benign Hyperkeratotic Lesion(s) 88965 ( >4 Lesions) - The Benign hyperkeratotic lesions, as described above were pared, and/or cut utilizing a sterile #15 blade, tissue nippers, and/or dremel Progress Notes * Juan CRONINDOB:1945 (78 yo M)Acc No.[id number]:12/07/2023 Progress Note Patient:?Ilan, Juan Provider:?Dario Luo DPM :1945???Age:78 Y???Sex:Male Golden e:12/07/2023 Address:[address] [place], [place] [id number] Pcp:Peewee Pan MD Subjective: * Chief Complaints: [...] rodriguez 01/2014colonoscopy 05/2017 * Hospitalization/Major Diagno stic Procedure:?[facility] - Nasal polyp removal 05/13/14 * [...] as necessary. Patient chooses, no pharmaceutical tx (25271).?Keratoma Treatment:?Parring or Cutting of Benign Hyperkeratotic Lesion(s)?53084 ( >4 Lesions) - The Benign hyperkeratotic lesions, as described above were pared, and/or cut utilizing a sterile #15 blade, tissue nippers, and/or dremel.? * Procedure Codes:?44653 DEBRI DE NAIL, 6 OR MORE, Modifiers: XS 70098 TRIM SKIN LESIONS, OVER 4, Modifiers: XS * Follow Up:?3 Months * Images: * Sign off status: Completed true * Provider:?Dario Luo DPM Date:? 024 Generated for Sharath sanches/Kary/eTarnoldo on:?04/25/2024 01:25 PM EDT History and Physical [...]
--- OUTSIDE RECORDS SUMMARY | 2024-04-25 13:25 | XMS_ITS ---
Author Organization [facility] Address [address] [facility] [place] [address] Care Team Providers Care Mining Technician Name Role Phone Peewee Pan MD Primary Care Provider Kerry Guzman Unavailable [phone] Allergies Allergen (clinical drug ingredient) Drug/Non Drug [...] Polyneuropathy due to type 2 diabetes mellitus (323928079) Type 2 diabetes mellitus with diabetic polyneuropathy (E11.42) Active confirmed Vital Signs Height 6 ft 1 in in 03/07/2024 Weight 250 lbs 03/07/2024 BMI 32.98 kg/m2 03/07/2024 Blood pressure systolic 120 mm Hg 03/07/19 Blood pressure diastolic 80 mm Hg 025 Procedures Procedure Date Ordered Date Performed Result Body Sit e 50665-YNJFSXC NAIL, 6 OR MORE 03/07/2024 N/A 19418-ERLE SKIN LESIONS, 2 TO 4 03/07/2024 N/A Encounters Encounter Location Date Provider Diagnosis [facility] [address] [address] 03/07/2024 Kerry Das Type 2 diabetes mellitus with diabetic polyneuropathy E11.42 and Tinea unguium B35.1 Assessments Encounter Date Diagnosis (ICD Code) Assessment Notes Treatment Notes Treatment Clinical Notes Section Notes 03/07/2024 Type 2 diabetes mellitus with diabetic polyneuropathy (ICD-10 - E11.42) 03/07/2024 Tinea unguium (ICD-10 - B35.1) Plan Of Treatment Pending Test Test Name Order Date 47487-DFIJGWT NAIL, 6 OR MORE 03/07/2024 68767-QHMC SKIN LESIONS, 2 TO 4 03/07/19 25 Next Appt Details Follow Up: prn, Reason: Provider Name:Kerry mcallister, 06/03/2024 03:30:00 PM, [address] [place] [address], [address], Procedure Notes * Category Sub-Category Detail Notes [...] use of a nail nipper and/or dremel-type carbide grinder, to a more viable healthy nail [...] to maintain effectiveness in symptomatic relief - 57445 Keratoma Treatment Parring or Cutting o f [...] instrumentation by the physician of record - 27983 Progress Notes * Juan TALAVERADOB:1945 (78 yo M)Acc No.[id number]:03/07/2024 Progress Note Patient:?Juan TALAVERA Provider:?Kerry Das DPM :1945???Age:78 Y???Sex:Male Golden e:03/07/2024 Address:[address] [place] [address], [place], [facility] Pcp:Peewee Pan MD Subjective: * Chief Complaints: [...] rodriguez 01/2014colonoscopy 05/2017 * Hospitalization/Major Diagno stic Procedure:?[facility] - Nasal polyp removal 05/13/14 * [...] use of a nail nipper and/or dremel-type carbide grinder, to a more viable healthy nail [...] to maintain effectiveness in symptomatic relief - 65065.?Keratoma Treatment:?Parring or Cutting of Benign Hyperkeratotic Lesion(s)?(-56) [...] instrumentation by the physician of record - 16033.? * Procedure Codes:?80696 DEBRI DE NAIL, 6 OR MORE, Modifiers: XS 09116 TRIM SKIN LESIONS, 2 TO 4, Modifiers: XS * Follow Up:?prn * Images: * Sign off status: Completed true * Provider:?Kerry Das DPM Date:?0 03/07/2024 Generated for Sharath sanches/Kary/Zaireitting on:?04/25/2024 01:25 PM EDT History and Physical [...]
== END 2024-04-25 10:55 | disposition home or self-care (01) ==
LOC: HO.HMCH 10:37
PROVIDERS: PCP Internal Medicine; Visit Provider Internal Medicine
DX: E11.69 Type 2 diabetes mellitus with other specified complication (principal); E66.9 Obesity, unspecified; Z68.33 Body mass index [BMI] 33.0-33.9, adult

== ENCOUNTER → 2024-04-25 10:36 | Outpatient (BNVA) | payer MEDICARE, OTHER, SELFPAY | PROVIDERS: PCP Internal Medicine; Visit Provider Internal Medicine | DX: E11.69 Type 2 diabetes mellitus with other specified complication (principal); E66.9 Obesity, unspecified; Z68.33 Body mass index [BMI] 33.0-33.9, adult; Z71.3 Dietary counseling and surveillance | CPT/HCPCS: 96127; 99212 ==

== ENCOUNTER 2024-07-29 11:21 | Outpatient (AMB) | payer MEDICARE, OTHER, SELFPAY ==
[2024-07-29 11:28] VITALS: BP 140/70; PULSE 78; TEMP 36.3; O2SAT 95; BMI 33.6
--- NOTE | 2024-07-29 11:28 | A.OFFPC_ITS ---
Vital Signs 07/29/24 11:28 07/29/24 13:42 Height 6 ft 1 in Weight 254 lb 6 oz BMI 33.6 BP 140/70 H 132/74 Blood Pressure Location Lt brachial Lt brachial Position Sitting Sitting Pulse 78 Pulse Source Pulse Oximeter Temp 97.3 F Temp Source Temporal Artery Scan Pulse Oximetry (%) 95 Oxygen Delivery Method Room Air Intake Visit Reasons: KENYON DR Pan Intake Note: Patient is here today for KENYON from DR Pan Lab Instructor Required: No Elder Assistant: Not Required per policy Accompanied by: Self / Same As Patient Allergies grass,trees etc Allergy (Unknown, Uncoded 07/29/24 13:43) Unknown Medication List - Last Reconciled 07/29/24 by TORSTEN De Jesus amlodipine 5 mg PO DAILY 90 days aspirin (Adult Low Dose Aspirin) 81 mg PO DAILY aspirin 81 mg PO DAILY cholecalciferol (vitamin D3) 50 mcg PO DAILY 90 days dulaglutide (Trulicity) 0.75 mg (0.25 mL) subcut QWEEK 90 days insulin degludec (Tresiba FlexTouch U-100 insulin) 20 units (0.2 mL) subcut DAILY 90 days lisinopril-hydrochlorothiazide 20-12.5 mg 1 tab PO BID lovastatin 40 mg PO DAILY 90 days metformin 1,000 mg PO BID omeprazole 20 mg PO BID pen needle, diabetic As directed Tobacco use date assessed: 07/29/24 Fall risk assessment: No Falls in past year Last assessed Fall Risk: 07/29/24 Dental Screening Dental Screen Date: 04/25/[address] Pan HPI Details The patient is a 78-year-old male presenting to transition care from Dr. Pan who retired. Following up on Type 2 Diabetes Mellitus for management and review. He noted a change in diabetes management with the discontinuation of Trulicity due to a supply issue, leading to a rise in A1c to 7.9%, which has recently improved to 7.2%. The patient routinely checks his blood glucose, with morning readings between 140-160 mg/dL, and has adjusted his insulin dosage to 25 units daily from 20 units based on his glucose levels. Hypertension is largely under control, typically around 120/80 mmHg, though it was elevated at 140/70 mmHg at the visit. For hyperlipidemia, the patient is on Novastatin 40 mg, while occasional GERD symptoms are managed with omeprazole as needed. Notably, he has a history of hemorrhoidal bleeding, with resumed aspirin post- clearance from a colonoscopy. 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 Diabetes type 2, controlled Diabetes mellitus Vitamin D deficiency Surgical History History of biopsy History of excision of lesion History of laminectomy History of appendectomy Family History Father Old age Mother Heart disease Social History Housing: House Alcohol intake: current Alcohol intake frequency: holidays/special occasions only Patient Tobacco Use Status: Former Tobacco user Tobacco use type: Cigarette e-Cigarette/Vaping Use: Never Used Second Hand Smoke Exposure: Yes service: No Current occupational status: retired Cognitive needs: No Hearing needs: No Vision needs: Yes Questionnaire PHQ-9 Over the last 2 weeks, how often have you been bothered by any of the following problems? 1. Little interest or pleasure in doing things: not at all 2. Feeling down, depressed, or hopeless: not at all 3. Trouble falling or staying asleep, or sleeping too much: not at all 4. Feeling tired or having little energy: not at all 5. Poor appetite or overeating: not at all 6. Feeling bad about yourself - or that you are a failure or have let yourself or your family down: not at all 7. Trouble concentrating on things, such as reading the newspaper or watching television: not at all 8. Moving or speaking so slowly that other people could have noticed. Or the opposite - being so fidgety or restless that you have been moving around a lot more than usual: not at all 9. Thoughts that you would be better off or of hurting yourself in some way: not at all Total score: 0 Depression Screening Interpretation: Negative Depression Screening Done: Yes Source: Developed by Drs. Filiberto Smith, Mohan Tellez and colleagues, with an educational geoff from [employer]. Thrive Questionnaire Date Thrive assessed: 07/22/24 I am a: Patient What is your living situation today?: I have a steady place to live Within the past 12 months, did the food you bought not last and you didn't have the money to get more?: Never true Within the past 12 months, did you worry whether your food would run out before you got money to buy more?: Never true Do you have trouble paying for medicines?: No Do you have trouble getting transportation to medical appointments?: No Do you have trouble paying your heating and electricity bill?: No Do you have trouble taking care of your child, family member or friend?: No Do you have trouble with day-to-day activities such as bathing, preparing meals, shopping, managing finances, etc.?: No Are you currently unemployed and looking for a job?: No Are you interested in more education?: No Please select the resources that you would like help with: None Currently or been in a relationship where the following occur: No concerns reported THRIVE Score: 0 AUDIT C Alcohol Use Questionnaire (AUDIT-C) 1. How often do you have a drink containing alcohol?: Never Total Score: 0 BRIAN-7 AMB Questionnaire BRIAN-7 Date BRIAN - 7 assessed: 07/29/24 Feeling nervous, anxious, or on edge: 0 = Not at all Not being able to stop or control worryin = Not at all Worrying too much about different things: 0 = Not at all Trouble relaxin = Not at all Being so restless that it is hard to sit still: 0 = Not at all Becoming easily annoyed or irritable: 0 = Not at all Feeling afraid as if something awful might happen: 0 = Not at all Total BRIAN-7 score (0-4 normal; 5-9 mild; 10-14 moderate; 15-21 severe): 0 Source: Developed by Drs. Filiberto Smith, Mohan Tellez and colleagues, with an educational geoff from [employer]. Review of Systems Const Denies headache(s) Eyes Denies loss of vision ENT Denies vertigo, Denies dizziness, Denies headache(s) and Denies sore throat Card Denies chest pain, Denies leg edema and Denies lightheadedness Resp Denies cough, Denies hemoptysis and Denies wheezing GI Denies abdominal pain, Denies melena, Denies constipation, Reports heartburn (Occasional), Denies diarrhea and Denies vomiting Denies dysuria, Reports urinary frequency (hx of bph-stopped taking flomax) and Denies urinary urgency Musc Denies arthralgias, Denies joint swelling, Denies numbness and Denies tingling Neuro Denies Abnormal speech present, Denies behavioral changes, Denies vertigo, Denies dizziness, Denies headache(s), Denies loss of vision, Denies memory loss, Denies numbness and Denies tingling Psych Denies anxiety, Denies behavioral changes, Denies depression, Denies memory loss and Denies panic attacks Sergei/Lymph Denies easy bleeding and Denies easy bruising Aller/Immun Denies wheezing Physical exam (Primary Care) Vital Signs: Last Vital Signs Temp 97.3 F 07/29/24 11:28 Pulse 78 07/29/24 11:28 BP 132/74 07/29/24 13:42 Pulse Ox 95 07/29/24 11:28 Oxygen Delivery Method Room Air 07/29/24 11:28 BMI result Body Mass Index 33.6 Tobacco/Smoking Status: Tobacco use Status Tobacco use date assessed 07/29/24 07/29/24 11:29 Patient Tobacco Use Status Former Tobacco user 07/29/24 11:29 Tobacco use type Cigarette 07/29/24 11:29 e-Cigarette/Vaping Use Never Used 07/29/24 11:29 PHQ-9: PHQ-9 Score PHQ-9: Total score 0 07/30/24 04:32 Depression Screening Interpretation: Negative Thrive Assessment: Date of Thrive Assessment Date Thrive assessed 07/22/24 07/29/24 11:29 Currently or been in a relationship where the following occur: No concerns reported Const General: healthy appearing, no acute distress, alert and awake Nutritional Appearance: well nourished Orientation/consciousness: oriented to person, oriented to place and oriented to time HENMT Ears: TM's normal bilaterally General nose exam: Normal nasal mucous membranes and turbinates present Eyes Conjunctivae: conjunctivae normal Sclerae: sclerae normal Pupils: Equal, round and reactive pupils present Neck Neck: Yes no lymphadenopathy and Yes no JVD Thyroid: Thyroid normal Carotids: no bruits Resp Effort & Inspection: normal respiratory effort and not tachypneic Auscultation: no crackles, no rales, no rhonchi and no wheezes Cardio Rate: regular rate Rhythm: regular rhythm Heart sounds: no murmurs and normal S1 and S2 GI Palpation (GI): Soft to palpation, nontender, no hepatomegaly and no splenomegaly Auscultation: normal bowel sounds Skin General skin exam: no rashes or lesions noted and dry skin Neuro General: oriented to person, oriented to place and oriented to time Cranial nerves: Yes Equal, round and reactive pupils present Speech: No Abnormal speech present Gait exam (Neuro): Normal gait present Motor exam (neuro): no tremor noted Extrem Right upper extremity: full ROM Left upper extremity: full ROM Right lower extremity: full ROM; no edema Left lower extremity: full ROM; no edema Psych Mental Status: mental status grossly normal Speech and movement: Normal speech and movement present Affect: normal affect Attitude: cooperative Thought process: Normal thought process present Results AMB Hemoglobin A1c AMB Hemoglobin A1c 7.2 % Last Edit by ZAIDA Robledo on 07/29/24 11:43 Results Reviewed Results Reviewed: Laboratory Last Values Hgb A1c (Clinic) 7.2 % (4.0-6.0) H 07/29/24 11:29 Coding Level of Care Code Est Pt Level 4 (58125) Diagnoses Type 2 diabetes mellitus with obesity E11.69; E66.9 Benign prostatic hyperplasia with lower urinary tract symptoms, symptom details unspecified N40.1 Lower urinary tract symptom detail: unspecified Dyslipidemia E78.5 Hypertension, unspecified type I10 Hypertension type: unspecified Diabetic polyneuropathy associated with type 2 diabetes mellitus E11.42 Diabetes mellitus complication detail: diabetic polyneuropathy Time Spent (min) 39 Assessment & Plan Assessment & Plan (1) Type 2 diabetes mellitus with obesity: Code(s): E11.69 - Type 2 diabetes mellitus with other specified complication; E66.9 - Obesity, unspecified Category: Medical Plan: The patient is type 2 diabetic that was being managed on Trulicity 1.5 mg but was having issues getting this from the pharmacy. As a result, his Tresiba was increased to 25 units. He is also on metformin a 1000 mg b.i.d., prior it was once a day. He has not taken Trulicity for over 2-1/2 years to 3 years. The patient is interested in getting back on Trulicity, will reorder at Trulicity at 0.75 mg and we will adjust insulin accordingly if the patient is able to get this medication. A1c is 7.2% down from 7.9%. Reinforced low sugar/carbohydrate diet and activity as tolerated. Continue Tresiba 25 units subQ daily, metformin a 1000 mg b.i.d. We will recheck labs in 3 months (2) Benign prostatic hyperplasia with lower urinary tract symptoms: Code(s): N40.1 - Benign prostatic hyperplasia with lower urinary tract symptoms Category: Medical Qualifiers: Lower urinary tract symptom detail: unspecified Qualified Code(s): N40.1 - Benign prostatic hyperplasia with lower urinary tract symptoms Plan: Reports frequent urination. Reports that he was on Flomax, but did not see any change so he stopped taking this medication. He is coping well with this for now. (3) Dyslipidemia: Code(s): E78.5 - Hyperlipidemia, unspecified Category: Medical Plan: tri 108, t-chol 153, ldl 73, hdl 61 Discussed lifestyle modifications including dietary changes and physical activity continue lovastatin 40 mg daily (4) Hypertension: Code(s): I10 - Essential (primary) hypertension Category: Medical Qualifiers: Hypertension type: unspecified Qualified Code(s): I10 - Essential (primary) hypertension Plan: bp 132/74 Encouraged DASH diet and activity as tolerated-goal systolic is less than 130 mmhg Refrain from alcohol use and if you smoke, smoking cessation is strongly advised continue amlodipine 5 mg daily, lisinopril-hydrochlorothiazide 20-12.5 mg b.i.d. (5) Diabetic neuropathy associated with type 2 diabetes mellitus: Code(s): E11.40 - Type 2 diabetes mellitus with diabetic neuropathy, unspecified Category: Medical Qualifiers: Diabetes mellitus complication detail: diabetic polyneuropathy Qualified Code(s): E11.42 - Type 2 diabetes mellitus with diabetic polyneuropathy Plan: Stable. His tingling sensation is not all the time and it does not appears to be bothersome. Will continue to monitor for now. Orders: Orders Complete Blood Count Auto Diff 3 Months E11.40 - Type 2 diabetes mellitus with diabetic neuropathy, unspecified, .69 - Type 2 diabetes mellitus with other specified complication, E55.9 - Vitamin D deficiency, unspecified, E66.9 - Obesity, unspecified, I10 - Essential (primary) hypertension, N40.1 - Benign prostatic hyperplasia with lower urinary tract symptoms, Z79.4 - [facility] (current) use of insulin UA CC w/rflx Micro + Cult 3 Months E11.40 - Type 2 diabetes mellitus with sammy betic neuropathy, unspecified, . - Type 2 diabetes mellitus with other specified complication, E55.9 - Vitamin D deficiency, unspecified, E66.9 - Obesity, unspecified, I10 - Essential (primary) hypertension, N40.1 - Benign prostatic hyperplasia with lower urinary tract symptoms, Z79.4 - [facility] (current) use of insulin Vitamin D 25-OH Total 3 Months E11.40 - Type 2 diabetes mellitus with diabetic neuropathy, unspecified, . - Type 2 diabetes mellitus with other specified complication, E55.9 - Vitamin D deficiency, unspecified, E66.9 - Obesity, unspecified, I10 - Essential (primary) hypertension, N40.1 - Benign prostatic hyperplasia with lower urinary tract symptoms, Z79.4 - [facility] (current) use of insulin Hemoglobin A1c 3 Months E11.40 - Type 2 diabetes mellitus with diabetic neuropathy, unspecified, . 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 Panel Fast 3 Months E11.40 - Type 2 diabetes mellitus with diabetic neuropathy, unspecified, . 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 Lipid Panel 3 Months E11.40 - Type 2 diabetes mellitus with diabetic neuropathy, unspecified, E11.69 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 TSH reflex Free T4 3 Months E11.40 - Type 2 diabetes mellitus with diabetic neuropathy, unspecified, E11.69 - Type 2 diabetes mellitus with other specified complication, E55.9 - Vitamin D deficiency, unspecified, E66.9 - Obesity, unspecified, I10 - Essential (primary) hypertension, N40.1 - Benign prostatic hyperplasia with lower urinary tract symptoms, 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 Medications: New aspirin 81 mg PO DAILY 30 tabs 3RF Changed From dulaglutide (Trulicity) Dose increased 1.5 mg (0.5 mL) subcut QWEEK 90 days 6.5 mL 1RF E11.9 - Type 2 diabetes mellitus without complications To dulaglutide (Trulicity) Dose increased 0.75 mg (0.25 mL) subcut QWEEK 3.25 mL 1RF 90 days E11.9 - Type 2 diabetes mellitus without complications From insulin degludec (Tresiba FlexTouch U-100 insulin) 20 units (0.2 mL) subcut DAILY 90 days 30 mL 2RF E11.9 - Type 2 diabetes mellitus without complications To insulin degludec (Tresiba FlexTouch U-100 insulin) 25 units (0.25 mL) subcut DAILY 22.5 mL 2RF 90 days E11.9 - Type 2 diabetes mellitus without complications
--- OUTSIDE RECORDS SUMMARY | 2024-07-29 12:57 | XMS_ITS | Patient Health Record ---
[facility] Organization [facility] Address [address] [facility] [place] [address] Care Team Providers Care Soaking Room Operator Name Role Phone Viviane RENDON, Peewee Primary Care Provider Kerry Guzman Unavailable [phone] Dario Luo Unavailable [phone] Allergies Allergen (clinical drug ingredient) Drug/Non Drug [...] Lab: Notes/Report: HEMOGLOBIN A1C % (HH) 6.2 HEMOGLOBIN A1C (GLYCOHEMOGLO BIN) Reviewed date:06/03/2024 03:30:05 PM Interpretation: Performing Lab: Notes/Report: HEMOGLOBIN A1C % (HH) 7.9 Reason For Referral No Information Medications Medication SIG (Take, Route, Frequency, Duration) Notes Start Date End Date Status Extra-Depth Diabetic Shoes with 3 Pair Custom heat-molded multi-density innersoles . for 1 year . Dx: foot deformity with preulcerative skin lesions for . 09/01/2014 Active Tamsulosin HCl 0.4 MG 1 capsule Orally O nce a day for 30 day(s) Not-Taking Trulicity 0.75 MG/0.5ML Subcutaneous Not-Taking Aspirin 81 MG 1 tablet Orally Once a day for 30 day(s) Active amLODIPine Besylate 5 MG 1 tablet Orally Once a day for 30 day(s) Active Voltaren 1 % as directed Externally Active Extra-Depth Diabetic Shoes with 3 Pair Custom heat-molded multi-density innersoles . 1pair shoes/3sets inserts . . for 1 year 08/22/2012 Not-Taking Tresiba Active metFORMIN HCl 1000 MG 1 tablet with meal s Orally Twice a day for 30 day(s) Active Lovastatin 1 tablet with a meal Orally Once a day for 30 day(s) Active Lisinopril-hydroCHLOROt hiazide 40mg 1 tablet Orally Once a day for 30 day(s) Active Immunizations Vaccine Route Administration Date Status [...] Polyneuropathy due to type 2 diabetes mellitus (005362987) Type 2 diabetes mellitus with diabetic polyneuropathy (E11.42) Active confirmed Vital Signs Blood pressure diastolic 70 mm Hg 06/03/2024 Height 6 ft 1 in in 06/03/2024 Blood pressure systolic 120 mm Hg 06/03/2024 Weight 250 lbs 06/03/2024 BMI 32.98 kg/m2 06/03/2024 Procedures Procedure Date Ordered Date Performed Result Body Sit e 14412-SSTCHHU NAIL, 6 OR MORE 03/07/2024 N/A 91877-XPQT SKIN LESIONS, 2 TO 4 03/07/2024 N/A 56202-ZWKOSMI NAIL, 6 OR MORE 06/03/2024 N/A 72545-TOWQ SKIN LESIONS, 2 TO 4 06/03/2024 N/A Encounters Encounter Location Date Provider Diagnosis [address] [address] 09/04/2023 Dario Luo Tinea unguium B35.1 ; Type 2 diabetes mellitus with other diabetic neurological complication E11.49 ; Pain in right toe(s) M79.674 ; Pain in left toe(s) M79.675 ; Tinea pedis B35.3 ; Xerosis cutis L85.3 ; Primary osteoarthritis, left ankle and foot M19.072 and Primary osteoarthritis, right ankle and foot M19.[address] [address] 12/07/2023 Dario Luo Tinea unguium B35.1 ; Type 2 diabetes mellitus with other diabetic neurological complication E11.49 ; Pain in right toe(s) M79.674 ; Pain in left toe(s) M79.675 ; Tinea pedis B35.3 ; Xerosis cutis L85.3 ; Primary osteoarthritis, left ankle and foot M19.072 and Primary osteoarthritis, right ankle and foot M19.[address] [address] 03/07/2024 Kerry Das Type 2 diabetes mellitus with diabetic polyneuropathy E11.42 and Tinea unguium B35.[address] [address] 06/03/2024 Kerry Das Type 2 diabetes mellitus with diabetic polyneuropathy E11.42 ; Tinea unguium B35.1 ; Other hammer toe(s) (acquired), right foot M20.41 and Other hammer toe(s) (acquired), left foot M20.42 Assessments Encounter Date Diagnosis (ICD Code) Assessment Notes Treatment Notes Treatment Clinical Notes Section Notes 09/04/2023 Tinea unguium (ICD-10 - B35.1) 12/07/2023 Tinea unguium (ICD-10 - B35.1) 03/07/2024 Type 2 diabetes mellitus with diabetic polyneuropathy (ICD-10 - E11.42) 03/07/2024 Tinea unguium (ICD-10 - B35.1) 06/03/2024 Type 2 diabetes mellitus with diabetic polyneuropathy (ICD-10 - E11.42) 06/03/2024 Tinea unguium (ICD-10 - B35.1) 12/07/2023 Type 2 diabetes mellitus with other diabetic neurological complication (ICD-10 - E11.49) 09/04/2023 Type 2 diabetes mellitus with other diabetic neurological complication (ICD-10 - E11.49) 09/04/2023 Pain in right toe(s) (ICD-10 - M79.674) 06/03/2024 Other hammer toe(s) (acquired), right foot (ICD-10 - M20.41) Response to treatment,Impro vement 12/07/2023 Pain in right toe(s) (ICD-10 - M79.674) 12/07/2023 Pain in left toe(s) (ICD-10 - M79.675) 06/03/2024 Other hammer toe(s) (acquired), left foot (ICD-10 - M20.42) Response to treatment,Impro vement 09/04/2023 Pain in left toe(s) (ICD-10 - M79.675) 09/04/2023 Tinea pedis (ICD-10 - B35.3) 12/07/2023 Tinea pedis (ICD-10 - B35.3) 12/07/2023 Xerosis cutis (ICD-10 - L85.3) 09/04/2023 Xerosis cutis (ICD-10 - L85.3) 09/04/2023 Primary osteoarthritis, left ankle and foot (ICD-10 - M19.072) 12/07/2023 Primary osteoarthritis, left ankle and foot (ICD-10 - M19.072) 12/07/2023 Primary osteoarthritis, right ankle and foot (ICD-10 - M19.071) 09/04/2023 Primary osteoarthritis, right ankle and foot (ICD-10 - M19.071) Plan Of Treatment Pending Test Test Name Order Date 06071-PBFINBE NAIL, 6 OR MORE 08/22/2012 25985-QPLSFVN NAIL, 6 OR MORE 02/25/2013 34527-PUEDNGO NAIL, 6 OR MORE 08/26/2013 37884-WJEGOXS NAIL, 6 OR MORE 02/26/2014 61031-APJGBBP NAIL, 6 OR MORE 09/01/2014 21501-JSVUWVY NAIL, 6 OR MORE 12/29/2014 78725-ROWRAZL NAIL, 6 OR MORE 05/06/2015 13251-LWUCHQC NAIL, 6 OR MORE 08/19/2015 10647-ASCCELQ NAIL, 6 OR MORE 11/25/2015 25306-PXKYPML NAIL, 6 OR MORE 02/24/2016 50986-MDYEEFM NAIL, 6 OR MORE 05/25/2016 93081-NRVUDRR NAIL, 6 OR MORE 08/29/2016 28174-EBIHQHB NAIL, 6 OR MORE 11/28/2016 55121-BQCEWMM NAIL, 6 OR MORE 03/09/2017 22489-NGLKCVZ NAIL, 6 OR MORE 06/12/2017 92899-HHEHAHY NAIL, 6 OR MORE 09/11/2017 88487-CDCIZOH NAIL, 6 OR MORE 12/06/2017 01006-ZKYVFRJ NAIL, 6 OR MORE 03/07/2024 97112-FJMHDBT NAIL, 6 OR MORE 06/03/2024 63182-VUUG SKIN LESIONS, OVER 4 05/01/19 19 67312-CBHX SKIN LESIONS, OVER 4 09/04/19 19 52295-YPVS SKIN LESIONS, OVER 4 01/03/20 19 54528-KVDH SKIN LESIONS, OVER 4 04/10/19 20 01024-YECL SKIN LESIONS, OVER 4 07/17/19 20 65488-QQSK SKIN LESIONS, OVER 4 10/28/19 20 41606-HLUR SKIN LESIONS, OVER 4 01/27/20 20 63639-YJMQ SKIN LESIONS, OVER 4 04/28/19 21 96428-OPDH SKIN LESIONS, OVER 4 07/30/19 21 30729-JYVQ SKIN LESIONS, OVER 4 10/29/19 21 25076-ILBD SKIN LESIONS, OVER 4 02/11/20 21 20009-OPDW SKIN LESIONS, OVER 4 05/13/19 22 22887-HTAG SKIN LESIONS, OVER 4 12/07/19 18 52354-WGDV SKIN LESIONS, OVER 4 09/12/19 18 73634-QZUA SKIN LESIONS, OVER 4 06/13/19 18 32169-BBIU SKIN LESIONS, OVER 4 03/09/19 18 18359-HKWB SKIN LESIONS, OVER 4 11/29/19 17 20614-YPPA SKIN LESIONS, OVER 4 05/26/19 17 82016-RTPW SKIN LESIONS, OVER 4 08/30/19 17 56132-OCEK SKIN LESIONS, OVER 4 02/23/19 17 89761-EJWH SKIN LESIONS, OVER 4 11/25/19 16 20508-JQEV SKIN LESIONS, OVER 4 08/19/19 16 73315-AEGZ SKIN LESIONS, OVER 4 05/06/19 16 59228-YOBE SKIN LESIONS, OVER 4 12/30/19 15 10841-YTBE SKIN LESIONS, OVER 4 09/02/19 15 86792-EQPI SKIN LESIONS, OVER 4 02/26/19 15 68977-BAEF SKIN LESIONS, OVER 4 08/27/19 14 40719-SDED SKIN LESIONS, OVER 4 02/25/19 14 91016-WJOH SKIN LESIONS, OVER 4 08/23/19 13 69309-BWHS SKIN LESIONS, 2 TO 4 06/04/19 02909-IMYQ SKIN LESIONS, 2 TO 4 03/07/19 Next Appt Details Provider Name:Kerry Martinez esvin, 09/04/2024 10:00:00 AM, [address] [place] [address], [phone], Insurance Providers Payer Name Payer Address Payer Phone Subscriber Number Group Number Insured Name Patient Relationship to Insured Coverage Start Date Coverage End Date Medicare National Govt Svcs Inc [address] [place] [address] [id number] Juan Talavera Self - patient is the insured 3 [employer] ([employer]) [address] [place] [address] [id number] Juan Talavera Self - patient is the insured Medical (General) History Medical History History ICD Code neuropathy mumps measles high blood pressure diabetic type II chicken pox back, hip, knee pain Surgical History Surgery Date(Month/Year) appendectomy disc surgery neck surgery deveated septum 10/2013 anal rodriguez 01/2014 colonoscopy 05/2017 Hospitalization History Reason Date(Month/Year) [facility] - Nasal polyp removal
[2024-07-29 13:42] VITALS: BP 132/74
== END 2024-07-29 12:03 | disposition home or self-care (01) ==
LOC: HO.HMCH 11:22
DX: E11.69 Type 2 diabetes mellitus with other specified complication (principal); E66.9 Obesity, unspecified

== ENCOUNTER → 2024-07-29 11:21 | Outpatient (BNVA) | payer MEDICARE, OTHER, SELFPAY | DX: E11.69 Type 2 diabetes mellitus with other specified complication (principal); E66.9 Obesity, unspecified; Z68.33 Body mass index [BMI] 33.0-33.9, adult; N40.1 Benign prostatic hyperplasia with lower urinary tract symptoms; E78.5 Hyperlipidemia, unspecified; I10 Essential (primary) hypertension; E11.42 Type 2 diabetes mellitus with diabetic polyneuropathy; Z71.3 Dietary counseling and surveillance; Z87.891 Personal history of nicotine dependence; Z79.4 Long term (current) use of insulin | CPT/HCPCS: 83036; 99212 ==

== ENCOUNTER 2024-10-23 07:13 | Outpatient (REF) | payer MEDICARE, OTHER, SELFPAY ==
--- OUTSIDE RECORDS SUMMARY | 2024-10-23 07:17 | XMS_ITS | Clinical Summary ---
Author Organization [facility] Address [address] [address] Phone Care Team Providers Care Knockup Worker Name Role Phone Peewee Pan MD Primary Care Provider [phone] Allergies No known active allergies Medications lisinopril (PRINIVIL,ZEST RIL) 40 MG tablet Take 20 mg by mouth 2 (two) times a day. Active lovastatin (MEVACOR) 40 MG tablet Take 40 mg by mouth daily. Active amLODIPine (NORVASC) 5 MG tablet Take 5 mg by mouth daily. Active metFORMIN (GLUCOPHAGE) 1000 MG tablet Take 1,000 mg by mouth 2 (two) times a day with meals. Active aspirin 81 MG EC tablet Take 81 mg by mouth daily. Active glyBURIDE (DIABETA) 5 MG tablet Take 5 mg by mouth 2 (two) times a day. Active BD ULTRA-FINE AUREA PEN NEEDLES 32 gauge x 5/32 Ndle 1 each by Miscellaneous route 4 (four) times a day before meals and nightly. 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 Social History Tobacco Use Types Packs/Day Years Used Date Smoking Tobacco: Never Education Answer Date Recorded Are you interested in more education? Not on hang e 06/10/2022 Are you concerned about learning? Not on file 06/10/2022 No 06/10/2022 No 06/10/2022 Digital Access Answer Date Recorded No 07/11/2022 No 07/11/2022 Reliable internet access at home? Not on file 07/11/2022 Device with a working camera? Not on file Sex and Gender Information Value Date Recorded Sex Assigned at Not on file Legal Sex Male 12:51 AM EST Gender Identity Not on file Sexual Orientation Not on file Plan of Treatment Health Maintenance Due Date Last Done Comments Adult Td,Tdap Booster 1945 BLOOD PRESSURE 1945 CREATININE LEVEL 1947 HEMOGLOBIN A1C 1947 DEPRESSION SCREENING 1959 HEPATITIS C SCREENING 11/10/1965 SMOKING STATUS SCREENING (Once After 26 Yrs) 11/10/1973 ZOSTER VACCINES (1 of 2) 11/10/1997 DIABETIC EYE EXAM 01/20/2015 POTASSIUM LEVEL 05/14/2015 05/13/2014 PNEUMOCOCCAL VACCINES (50+ years) (2 of 2 - PCV) 01/20/2016 01/19/2015 RSV VACCINE (1 - 1-dose 75+ series) 11/10/2022 COVID-19 VACCINE (2 - season) 2023 04/06/2020 INFLUENZA VACCINE (#1) 2024 0, 12/10/2018, 12/07/2017, Additional history exists HEPATITIS A VACCINES Aged Out No long er eligible based on patient's age to complete this topic HIB VACCINES Aged Out No longer eligi ble based on patient's age to complete this topic MENINGOCOCCAL VACCINES (ACWY) Aged Out No longer eligible based on patient's age to complete this topic MENINGOCOCCAL VACCINES (B) Aged Out N o longer eligible based on patient's age to complete this topic Medical Devices Not on file Procedures Procedure Name Priority Date/Time Associated Diagnosis Comments CHEMISTRY TEST - MEEI Routine 05/13/2014 8:50 AM EDT from Last 3 Months or Most Recently Relevant to Health Maintenance Results * (ABNORMAL) Chemistry Test - MEEI (05/13/2014 8:50 AM EDT) SODIUM 139 135 - 145 MMOL/L [facility] POTASSIUM 3.6 3.5 - 5.0 MMOL/L [facility] CHLORIDE 100 100 - 108 MMOL/L [facility] CARBON DIOXIDE 24.8 23.0 - 31.9 MMOL/L [facility] ANION GAP 18(Abnorm ally H) 0 - 16 [facility] 05/13/2014 8:50 AM EDT 05/13/2014 8:50 AM EDT Narrative [facility] - 05/13/2014 9:27 AM EDT SPECIAL INSTRUCTIONS s floor us Nico Ramos MD LAB BLOOD [place] [address], [facility] from Last 3 Months or Most Recently Relevant to Health Maintenance Insurance MEDICARE PART A & B [facility] TOTAL [facility]ICE INDEMNITY MEDICARE PART A & B [facility] TOTAL CHOICE INDEMNITY MEDICARE PART A & B TOTAL CHOICE INDEMNITY MEDICARE PART A & B Member Subscriber Plan / [facility] Name:Juan Talavera Jr. Member ID:[id number] Relation to Subscriber:Self Name:Juan Talavera JrDorene Subscriber ID:[id number] Payer ID:[id number] Group ID:Not on file Type:Medicare Address: [employer] [address] TOTAL CHOICE INDEMNITY MEDICARE PART A & B Member Subscriber Plan / Payer ( fective 2012-Present) Name:Juan Talavera JrDorene Member ID:[id number] Relation to Subscriber:Self Name:Juan Talavera Jr. Subscriber ID:[id number] Payer ID:[id number] Group ID:Not on file Type:Medicare Address: [place] [address] TOTAL CHOICE INDEMNITY MEDICARE PART A & B [facility] TOTAL CHOICE INDEMNITY MEDICARE PART A & B [employer] TOTAL CHOICE INDEMNITY MEDICARE PART A & B [employer] TOTAL CHOICE INDEMNITY MEDICARE PART A & B [facility] TOTAL CHOICE INDEMNITY MEDICARE PART A & B [facility] TOTAL CHOICE INDEMNITY Care Teams Knockup Worker Relationship Specialty Start Date End Date Peewee Pan MD [address] [place] [address] [place] [address] PCP - General 04/14/15 Additional Source Comments The information contained in this document represents components of the legal health record. It is not the complete legal health record.[facility]
--- OUTSIDE RECORDS SUMMARY | 2024-10-23 07:17 | XMS_ITS | Patient Health Record ---
Author Organization [facility] Address [address] [facility] [place] [address] Care Team Providers Care Mainframe Architect Name Role Phone Darren Herndon Primary Care Provider Kerry Dalton Unavailable [phone] Dario Luo Unavailable [phone] Allergies Allergen (clinical drug ingredient) Drug/Non Drug Allergy documented on EMR Reaction Allergy Type Onset Date Status Grass Mix Pollens Allergen Ext Unknown Drug Allergy Active Dust Mite Mixed Allergen Ext Unknown Drug Allergy Active Results Component Value Reference Range Notes HEMOGLOBIN A1C (GLYCOHEMOGLO BIN) Reviewed date:03/07/2024 11:01:05 [...] multi-density innersoles . 1pair shoes/3sets inserts . .; Duration: 1 year 08/22/2012 Not-Taking Voltaren 1 % as directed Externally Active amLODIPine Besylate 5 MG 1 tablet Orally Once a day; Duration: 30 day(s) Active Aspirin 81 MG 1 tablet Orally Once a day; Duration: 30 day(s) Active Lisinopril-hydroCHLOROt hiazide 40mg 1 tablet Orally Once a day; Duration: 30 day(s) Active Lovastatin 1 tablet with a meal Orally Once a day; Duration: 30 day(s) Active metFORMIN HCl 1000 MG 1 tablet with meal s Orally Twice a day; Duration: 30 day(s) Active Tresiba Active Extra-Depth Diabetic Shoes with 3 Pair Custom heat-molded multi-density innersoles . for 1 year . Dx: foot deformity with preulcerative skin lesions; Duration: . 09/01/2014 Active Trulicity 0.75 MG/0.5ML Subcutaneous Active Tamsulosin HCl 0.4 MG 1 capsule Orally O nce a day; Duration: 30 day(s) Not-Duarte ing Immunizations Vaccine Route Administration Date Status Comme nts Influenza Unknown 10/29/2015 Administered Influenza Unknown 11/23/2016 Administered Influenza Unknown 11/28/2017 Administered Influenza Unknown 10/14/2021 Administered Influenza Unknown 10/14/2022 Administered Influenza Unknown 11/14/2023 Administered Pneumococcal Unknown 11/22/2016 Administered COVID-19 Moderna Vaccine Unknown 11/14/2020 Administere d 1st 04/14/2020 2nd 05/05/2020 Social History Tobacco Use: Social History Observation [...] Problem Status W/U Status Risk Notes Problem Acquired hammer toe of right foot (8033260370356474 ) Other hammer toe(s) (acquired), right foot (M20.41) Active confirmed Response to treatment, Improvemen t Problem Acquired hammer toe of left foot (3679281120951039 ) Other hammer toe(s) (acquired), left foot (M20.42) Active confirmed Response to treatment, Improvemen t Problem Polyneuropathy due to type 2 diabetes mellitus (972967956) Type 2 diabetes mellitus with diabetic polyneuropathy (E11.42) Active confirmed Problem Neuropathy (921917227) Neuropathy (G62.9) Active confirmed Vital Signs Blood pressure diastolic 65 mm Hg 09/04/2024 Height 6 ft 1 in in 09/04/2024 Blood pressure systolic 128 mm Hg 09/04/2024 Weight 250 lbs 09/04/2024 BMI 32.98 kg/m2 09/04/2024 Procedures Procedure Date Ordered Date Performed Result Body Sit e 66733-KSKNBZG NAIL, 6 OR MORE 03/07/2024 N/A 70015-NFSV SKIN LESIONS, 2 TO 4 03/07/2024 N/A 75619-EGCIMWA NAIL, 6 OR MORE 06/03/2024 N/A 42694-WDYF SKIN LESIONS, 2 TO 4 06/03/2024 N/A 97771-IKMEIWN NAIL, 6 OR MORE 09/04/2024 N/A 72724-QDPK SKIN LESIONS, 2 TO 4 09/04/2024 N/A Encounters Encounter Location Date Provider Diagnosis [address] [address] 12/07/2023 Dario Luo Tinea unguium B35.1 ; Type 2 diabetes mellitus with other diabetic neurological complication E11.49 ; Pain in right toe(s) M79.674 ; Pain in left toe(s) M79.675 ; Tinea pedis B35.3 ; Xerosis cutis L85.3 ; Primary osteoarthritis, left ankle and foot M19.072 and Primary osteoarthritis, right ankle and foot M19.[address] [address] 03/07/2024 Kerry Das Type 2 diabetes mellitus with diabetic polyneuropathy E11.42 and Tinea unguium B35.[address] [address] 06/03/2024 Kerry Das Type 2 diabetes mellitus with diabetic polyneuropathy E11.42 ; Tinea unguium B35.1 ; Other hammer toe(s) (acquired), right foot M20.41 and Other hammer toe(s) (acquired), left foot M20.[address] [address] 09/04/2024 Kerry Das Type 2 diabetes mellitus with diabetic polyneuropathy E11.42 ; Tinea unguium B35.1 ; Neuropathy G62.9 ; Pain in left foot M79.672 and Pain in right foot M79.671 Assessments Encounter Date Diagnosis (ICD Code) Assessment Notes Treatment Notes Treatment Clinical Notes Section Notes 12/07/2023 Tinea unguium (ICD-10 - B35.1) 03/07/2024 Type 2 diabetes mellitus with diabetic polyneuropathy (ICD-10 - E11.42) 03/07/2024 Tinea unguium (ICD-10 - B35.1) 06/03/2024 Type 2 diabetes mellitus with diabetic polyneuropathy (ICD-10 - E11.42) 06/03/2024 Tinea unguium (ICD-10 - B35.1) 09/04/2024 Type 2 diabetes mellitus with diabetic polyneuropathy (ICD-10 - E11.42) 09/04/2024 Tinea unguium (ICD-10 - B35.1) 09/04/2024 Neuropathy (ICD-10 - G62.9) 12/07/2023 Type 2 diabetes mellitus with other diabetic neurological complication (ICD-10 - E11.49) 06/03/2024 Other hammer toe(s) (acquired), right foot (ICD-10 - M20.41) Response to treatment,Impro vement 12/07/2023 Pain in right toe(s) (ICD-10 - M79.674) 09/04/2024 Pain in left foot (ICD-10 - M79.672) 09/04/2024 Pain in right foot (ICD-10 - M79.671) 12/07/2023 Pain in left toe(s) (ICD-10 - M79.675) 06/03/2024 Other hammer toe(s) (acquired), left foot (ICD-10 - M20.42) Response to treatment,Impro vement 12/07/2023 Tinea pedis (ICD-10 - B35.3) 12/07/2023 Xerosis cutis (ICD-10 - L85.3) 12/07/2023 Primary osteoarthritis, left ankle and foot (ICD-10 - M19.072) 12/07/2023 Primary osteoarthritis, right ankle and foot (ICD-10 - M19.071) Plan Of Treatment Pending Test Test Name Order Date 29865-XLHORMM NAIL, 6 OR MORE 08/22/2012 25721-EZYBXEQ NAIL, 6 OR MORE 02/25/2013 30938-DRDXMNS NAIL, 6 OR MORE 08/26/2013 83332-XOPAEXB NAIL, 6 OR MORE 02/26/2014 38306-PQDUXIN NAIL, 6 OR MORE 09/01/2014 57710-IVHPQVR NAIL, 6 OR MORE 12/29/2014 43520-RPJYZQE NAIL, 6 OR MORE 05/06/2015 84523-VMQWCEF NAIL, 6 OR MORE 08/19/2015 28599-FTTEERH NAIL, 6 OR MORE 11/25/2015 91074-INEFUJL NAIL, 6 OR MORE 02/24/2016 62182-KSVLSNQ NAIL, 6 OR MORE 05/25/2016 42571-GBGXSKN NAIL, 6 OR MORE 08/29/2016 80197-INJUJFV NAIL, 6 OR MORE 11/28/2016 91039-ZXGGQIG NAIL, 6 OR MORE 03/09/2017 12649-JAUZSDN NAIL, 6 OR MORE 06/12/2017 13951-MSJKADY NAIL, 6 OR MORE 09/11/2017 41517-PJISOOA NAIL, 6 OR MORE 12/06/2017 01419-TBKAUGA NAIL, 6 OR MORE 03/07/2024 37603-BPASTVB NAIL, 6 OR MORE 06/03/2024 46889-VERJNIJ NAIL, 6 OR MORE 09/04/2024 20861-EPVR SKIN LESIONS, OVER 4 05/01/19 19 99991-DAVB SKIN LESIONS, OVER 4 09/04/19 19 48230-DUSB SKIN LESIONS, OVER 4 01/03/20 19 13344-HZQC SKIN LESIONS, OVER 4 04/10/19 20 07949-FSMQ SKIN LESIONS, OVER 4 07/17/19 20 04998-KAIT SKIN LESIONS, OVER 4 10/28/19 20 37521-FXTR SKIN LESIONS, OVER 4 01/27/20 20 70582-RYCE SKIN LESIONS, OVER 4 04/28/19 21 30306-OPZG SKIN LESIONS, OVER 4 07/30/19 21 87832-TPWL SKIN LESIONS, OVER 4 10/29/19 21 37969-SJYT SKIN LESIONS, OVER 4 02/11/20 21 98865-RLLO SKIN LESIONS, OVER 4 05/13/19 22 78369-TKSM SKIN LESIONS, OVER 4 12/07/19 18 04694-XWCH SKIN LESIONS, OVER 4 09/12/19 18 81714-LFFS SKIN LESIONS, OVER 4 06/13/19 18 34577-RNIS SKIN LESIONS, OVER 4 03/09/19 18 93346-QJSN SKIN LESIONS, OVER 4 11/29/19 17 74680-IIXA SKIN LESIONS, OVER 4 05/26/19 17 49751-WOXM SKIN LESIONS, OVER 4 08/30/19 17 20881-ZCFV SKIN LESIONS, OVER 4 02/23/19 17 47111-CXNQ SKIN LESIONS, OVER 4 11/25/19 16 85468-AOOG SKIN LESIONS, OVER 4 08/19/19 16 27274-DYML SKIN LESIONS, OVER 4 05/06/19 16 81694-PBRA SKIN LESIONS, OVER 4 12/30/19 15 02049-INZN SKIN LESIONS, OVER 4 09/02/19 15 07300-QKPE SKIN LESIONS, OVER 4 02/26/19 15 37884-LQSU SKIN LESIONS, OVER 4 08/27/19 14 07104-LMHK SKIN LESIONS, OVER 4 02/25/19 14 79277-VPQI SKIN LESIONS, OVER 4 08/23/19 13 88229-JJYK SKIN LESIONS, 2 TO 4 09/05/19 25 98643-QGOL SKIN LESIONS, 2 TO 4 06/04/19 25 42136-LXQR SKIN LESIONS, 2 TO 4 03/07/19 Next Appt Details Provider Name:Kerry Michelle mcallister, 12/11/2024 09:00:00 AM, [address] [place] [address], [place], [address], Insurance Providers Payer Name Payer Address Payer Phone Subscriber Number Group Number Insured Name Patient Relationship to Insured Coverage Start Date Coverage End Date Medicare National Govt Svcs Inc [address] [facility] [place] [address] [id number] Juan Talavera Self - patient is the insured 3 [employer]) [address] [place] [address] [id number] Juan Talavera Self - patient is the insured Medical (General) History Medical History History ICD Code neuropathy mumps measles high blood pressure diabetic type II chicken pox back, hip, knee pain Surgical History Surgery Date(Month/Year) appendectomy disc surgery neck surgery deveated septum 10/2013 anal rodriguez 01/2014 colonoscopy 05/2017 Hospitalization History Reason Date(Month/Year) [facility] - Nasal polyp removal
[2024-10-23 07:38] LABS: Hematocrit 43.5 % (42.0-52.0); Hemoglobin 14.6 g/dl (14.0-18.0); Imm Gran Abs Auto 0.02 X10*3/uL (0.00-0.03); Imm Gran Pct Auto 0.3 % (0.0-0.4); Lymphocytes Absolute Auto 1.9 X10*3/uL (1.2-4.9); MANUAL DIFF FLAG NO; Mean Corpuscular HGB Conc 33.6 g/dl (31.0-36.0); Mean Corpuscular Hemoglobin 29.9 pg (27.0-33.0); Mean Corpuscular Volume 89.0 fL (80.0-98.0); NRBC Abs Auto 0.000 X10*3/uL (0.0-0.012); NRBC Pct Auto 0.0 /100WBC (0.0-0.2); Platelet Count 228 X10*3/uL (160-400); Red Blood Count 4.89 X10*6/uL (4.60-5.80); White Blood Count 7.7 X10*3/uL (4.8-10.8)
[2024-10-23 07:46] LABS: Hemoglobin A1C 175.8756 umol/L; Total Hemoglobin (HGBA1C) 3761.8463 umol/L
[2024-10-23 08:01] LABS: Alanine Aminotransferase 19 U/L (0-40); Albumin Level 4.2 g/dL (3.5-5.0); Alkaline Phosphatase 45 U/L (39-117); Anion Gap 16 (12-20); Aspartate Amino Transferase 20 U/L (5-37); Blood Urea Nitrogen 13 mg/dL (9-16); Calcium 9.0 mg/dL (8.4-10.2); Carbon Dioxide 28 mmol/L (22-29); Chloride 102 mmol/L (96-108); Cholesterol 151 mg/dL (<200); Estimated Glomerular Filt Rate 54; HDL Cholesterol 57 mg/dL (>40); Potassium 3.8 mmol/L (3.3-5.1); Sodium 142 mmol/L (135-145); Total Protein 6.9 g/dL (6.5-8.0); Triglycerides 122 mg/dL (<150)
[2024-10-23 08:15] LABS: Appearance Urine Clear; Glucose Urine UA Negative (Negative); PH 5.5 (5.0-9.0); Specific Gravity - Urine 1.015 (1.005-1.025)
== END 2024-10-23 07:14 | disposition home or self-care (01) ==
LOC: HO.LAB 07:13
DX: I10 Essential (primary) hypertension (principal); E11.40 Type 2 diabetes mellitus with diabetic neuropathy, unspecified; E11.69 Type 2 diabetes mellitus with other specified complication; N40.1 Benign prostatic hyperplasia with lower urinary tract symptoms; E55.9 Vitamin D deficiency, unspecified; E66.9 Obesity, unspecified; Z79.4 Long term (current) use of insulin
CPT/HCPCS: 36415; 80053; 80061; 81003; 82306; 83036; 84443; 85025

== ENCOUNTER 2024-10-29 10:46 | Outpatient (AMB) | payer MEDICARE, OTHER, SELFPAY ==
[2024-10-29 10:53] VITALS: BP 120/62; PULSE 73; RESP 18; TEMP 36; O2SAT 96; BMI 32.9
--- NOTE | 2024-10-29 10:53 | A.OFFPC_ITS ---
Vital Signs 10/29/24 10:53 Height 6 ft 1 in Weight 249 lb 8 oz BMI 32.9 BP 120/62 Blood Pressure Location Lt brachial Position Sitting Respiration 18 Pulse 73 Pulse Source Pulse Oximeter Temp 96.8 F Temp Source Temporal Artery Scan Pulse Oximetry (%) 96 Oxygen Delivery Method Room Air Intake Visit Reasons: DM/HTN/HLD/BPH Apron Cleaner Required: No Accompanied by: Self / Same As Patient Allergies grass,trees etc Allergy (Unknown, Uncoded 07/29/24 13:43) Unknown Tobacco use date assessed: 10/29/24 Fall risk assessment: No Falls in past year Last assessed Fall Risk: 10/29/24 Dental Screening Dental Screen Date: 10/29/24 Did you have a dental visit in the last 12 months?: No Did you have a dental problem in the last 6 months where you did not have access to dental care?: No Was dental information given to patient?: Patient has dentist HPI DM/HTN/HLD/BPH HPI Details The patient is a 78-year-old male presenting for follow appointment. He is here with Type 2 Diabetes Mellitus. He has been using Trulicity, which has helped lower his HbA1c levels to 6.4%. However, he experiences weekly gastrointestinal side effects, including cramps followed by diarrhea, typically occurring two to three days after taking the medication. The patient reports that the cramps resolve after bowel movements, and he is currently managing these side effects as they are not significantly bothersome. Educate the patient that these side effects are a known issue with Trulicity and similar medications. Recommend to continue medication since this side effect is once a week and it is tolerable for the patient. The patient has a history of hemorrhoids, which was confirmed by Dr. Herring following a colonoscopy. He previously experienced dark blood in his stool, leading to an emergency room visit where an ulcer was suspected, but hemorrhoids were ultimately diagnosed. 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 Diabetes type 2, controlled Diabetes mellitus Vitamin D deficiency Surgical History History of biopsy History of excision of lesion History of laminectomy History of appendectomy Family History Father Old age Mother Heart disease Social History Housing: House Alcohol intake: current Alcohol intake frequency: holidays/special occasions only Patient Tobacco Use Status: Former Tobacco user Tobacco use type: Cigarette e-Cigarette/Vaping Use: Never Used Second Hand Smoke Exposure: Yes service: No Current occupational status: retired Cognitive needs: No Hearing needs: No Vision needs: Yes Questionnaire Thrive Questionnaire Date Thrive assessed: 07/22/24 I am a: Patient What is your living situation today?: I have a steady place to live Within the past 12 months, did the food you bought not last and you didn't have the money to get more?: Never true Within the past 12 months, did you worry whether your food would run out before you got money to buy more?: Never true Do you have trouble paying for medicines?: No Do you have trouble getting transportation to medical appointments?: No Do you have trouble paying your heating and electricity bill?: No Do you have trouble taking care of your child, family member or friend?: No Do you have trouble with day-to-day activities such as bathing, preparing meals, shopping, managing finances, etc.?: No Are you currently unemployed and looking for a job?: No Are you interested in more education?: No Please select the resources that you would like help with: None Currently or been in a relationship where the following occur: No concerns reported THRIVE Score: 0 BRIAN-7 AMB Questionnaire BRIAN-7 Date BRIAN - 7 assessed: 07/29/24 Source: Developed by Drs. Filiberto Smith, Zofia Fonseca, Mohan Tello and colleagues, with an educational geoff from [employer]. Review of Systems Const Denies body aches, Denies chills, Denies fever(s), Denies headache(s) and Denies poor appetite Eyes Reports no additional complaints ENT Denies dysphagia, Denies dizziness, Denies headache(s) and Denies odynophagia Card Denies chest pain, Denies syncope, Denies edema, Denies irregular heart rhythm, Denies lightheadedness and Denies dyspnea Resp Denies cough and Denies dyspnea GI Denies abdominal pain, Denies constipation, Reports GI cramping (once a week 2-3 days after Trulicity), Denies dysphagia, Reports diarrhea (once a week), Denies nausea, Denies odynophagia and Denies vomiting Reports no additional complaints Musc Reports no additional complaints and Denies abnormal gait Skin/Breast Reports system reviewed and no additional complaints, except as documented Neuro Denies abnormal gait, Denies dizziness, Denies syncope and Denies headache(s) Psych Reports no additional complaints Physical exam (Primary Care) Vital Signs: Last Vital Signs Temp 96.8 F 10/29/24 10:53 Pulse 73 10/29/24 10:53 Resp 18 10/29/24 10:53 BP 120/62 10/29/24 10:53 Pulse Ox 96 10/29/24 10:53 Oxygen Delivery Method Room Air 10/29/24 10:53 BMI result Body Mass Index 32.9 Tobacco/Smoking Status: Tobacco use Status Tobacco use date assessed 10/29/24 10/29/24 11:05 Patient Tobacco Use Status Former Tobacco user 10/29/24 11:05 Tobacco use type Cigarette 10/29/24 11:05 e-Cigarette/Vaping Use Never Used 10/29/24 11:05 Thrive Assessment: Date of Thrive Assessment Date Thrive assessed 07/22/24 10/29/24 11:05 Currently or been in a relationship where the following occur: No concerns reported Const General: cooperative, healthy appearing, comfortable and no acute distress Orientation/consciousness: patient oriented x3 HENMT Head: Yes normocephalic Ears: hearing grossly normal bilaterally General nose exam: Normal external nose present Eyes General: appearance normal, both eyes and all related structures Conjunctivae: conjunctivae normal Neck Neck: Yes full ROM and Yes no lymphadenopathy Resp Effort & Inspection: normal respiratory effort Auscultation: clear to auscultation bilaterally, no crackles, no rales, no rhonchi and no wheezes Cardio Rate: regular rate Rhythm: regular rhythm Skin General skin exam: no rashes or lesions noted Neuro General: patient oriented x3 Gait exam (Neuro): Normal gait present Extrem General: Yes normal to inspection, Yes full ROM and No edema Psych Affect: normal affect Attitude: cooperative Insight: Good insight present (Psych) Judgement: Good judgement present (Psych) Results Reviewed Results Reviewed: Laboratory Tests 10/23/24 10/23/24 07:19 07:21 WBC 7.7 RBC 4.89 Hgb 14.6 Hct 43.5 MCV 89.0 MCH 29.9 MCHC 33.6 RDW 13.7 Plt Count 228 Sodium 142 Potassium 3.8 Chloride 102 Carbon Dioxide 28 Anion Gap 16 BUN 13 Creatinine 1.30 Estim Creat Clear Calc Not Reportable Estimated GFR 54 Fasting Glucose 124 H Estimat Average Glucose 137 Hemoglobin A1c % 6.4 H Calcium 9.0 Total Bilirubin 0.8 AST 20 ALT 19 Alkaline Phosphatase 45 Total Protein 6.9 Albumin 4.2 Triglycerides 122 Cholesterol 151 LDL Cholesterol, Calc 70 HDL Cholesterol 57 25-OH Vitamin D Total 42.6 TSH 2.13 Urine Color Yellow Urine Appearance Clear Urine pH 5.5 Ur Specific [place] 1.015 Urine Protein Negative Urine Glucose (UA) Negative Urine Ketones Negative Urine Blood Negative Urine Nitrite Negative Ur Leukocyte Esterase Negative Coding Level of Care Code Est Pt Level 4 (13204) Diagnoses Type 2 diabetes mellitus with obesity E11.69; E66.9 Benign prostatic hyperplasia with lower urinary tract symptoms, symptom details unspecified N40.1 Lower urinary tract symptom detail: unspecified Dyslipidemia E78.5 Hypertension, unspecified type I10 Hypertension type: unspecified Diabetic polyneuropathy associated with type 2 diabetes mellitus E11.42 Diabetes mellitus complication detail: diabetic polyneuropathy Vitamin D deficiency E55.9 Class 1 obesity with serious comorbidity and body mass index (BMI) of 32.0 to 32.9 in adult, unspecified obesity type E66.811; Z68.32 Obesity type: unspecified obesity type Obesity classification: adult class 1 (BMI 30 - 34.9) Serious obesity comorbidity presence: with serious comorbidity Body mass index: BMI 32.0-32.9 Diarrhea, unspecified type R19.7 Diarrhea type: unspecified type Stomach cramps R10.9 Time Spent (min) 38 Assessment & Plan Assessment & Plan (1) Type 2 diabetes mellitus with obesity: Code(s): E11.69 - Type 2 diabetes mellitus with other specified complication; E66.9 - Obesity, unspecified Category: Medical Plan: A1c is 6.4% goal is less than 7% Reinforced low sugar/carbohydrate diet and activity as tolerated. Continue Trulicity 0.75 mg subQ q.week, Tresiba 25 units subQ daily, metformin a 1000 mg b.i.d. We will recheck labs in 3 months (2) Benign prostatic hyperplasia with lower urinary tract symptoms: Code(s): N40.1 - Benign prostatic hyperplasia with lower urinary tract symptoms Category: Medical Qualifiers: Lower urinary tract symptom detail: unspecified Qualified Code(s): N40.1 - Benign prostatic hyperplasia with lower urinary tract symptoms Plan: Reports frequent urination. Reports that he was on Flomax, but did not see any change so he stopped taking this medication. He is coping well with this for now. (3) Dyslipidemia: Code(s): E78.5 - Hyperlipidemia, unspecified Category: Medical Plan: Triglycerides 122, total cholesterol 151, LDL 70, HDL 57 Discussed lifestyle modifications including dietary changes and physical activity continue lovastatin 40 mg daily We will repeat lipid panel in 3 months (4) Hypertension: Code(s): I10 - Essential (primary) hypertension Category: Medical Qualifiers: Hypertension type: unspecified Qualified Code(s): I10 - Essential (primary) hypertension Plan: Blood pressure was 120/62 systolic goal less than 130 mmhg Encouraged DASH diet and activity as tolerated Refrain from alcohol use and if you smoke, smoking cessation is strongly advised continue amlodipine 5 mg daily, lisinopril-hydrochlorothiazide 20-12.5 mg b.i.d. (5) Diabetic neuropathy associated with type 2 diabetes mellitus: Code(s): E11.40 - Type 2 diabetes mellitus with diabetic neuropathy, unspecified Category: Medical Qualifiers: Diabetes mellitus complication detail: diabetic polyneuropathy Qualified Code(s): E11.42 - Type 2 diabetes mellitus with diabetic polyneuropathy Plan: Stable. His tingling sensation is not all the time and it does not appears to be bothersome. Will continue to monitor for now. (6) Vitamin D deficiency: Code(s): E55.9 - Vitamin D deficiency, unspecified Category: Medical Plan: Continue cholecalciferol 50 mcg daily (7) Obesity: Code(s): E66.9 - Obesity, unspecified Category: Medical Qualifiers: Obesity type: unspecified obesity type Obesity classification: adult class 1 (BMI 30 - 34.9) Serious obesity comorbidity presence: with serious comorbidity Body mass index: BMI 32.0-32.9 Qualified Code(s): E66.811 - Obesity, class 1; Z68.32 - Body mass index [BMI] 32.0-32.9, adult Plan: Discussed low-cholesterol and activity as tolerated the aid in losing weight (8) Diarrhea: Code(s): R19.7 - Diarrhea, unspecified Category: Medical Qualifiers: Diarrhea type: unspecified type Qualified Code(s): R19.7 - Diarrhea, unspecified Plan: Patient reports diarrhea once a week 2-3 days after taking Trulicity. Reports the diarrhea is associated abdominal cramping which resolves after moving balance. Patient reports that this is tolerable and it is only once a week. Will continue to monitor given the improvement in his A1C. 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
--- OUTSIDE RECORDS SUMMARY | 2024-10-29 14:24 | XMS_ITS | Clinical Summary ---
Author Organization [facility] Address [address] [address] Phone Care Team Providers Care Animal Nursery Worker Name Role Phone Peewee Pan MD Primary Care Provider [phone] Allergies No known active allergies Medications lisinopril [...] EDT) SODIUM 139 135 - 145 MMOL/L [facility] POTASSIUM 3.6 3.5 - 5.0 MMOL/L [facility] CHLORIDE 100 100 - 108 MMOL/L [facility] DIOXIDE 24.8 23.0 - 31.9 MMOL/L [facility] AN[facility] GAP 18(Abnorm ally H) 0 - 16 [facility] 05/13/2014 8:50 AM EDT 05/13/2014 8:50 AM EDT Narrative [facility] - 05/13/2014 9:27 AM EDT SPECIAL INSTRUCTIONS s floor us Nico Ramos MD LAB BLOOD [place]AB[place] [address], [facility] from Last 3 Months or Most Recently Relevant to Health Maintenance Insurance MEDICARE PART A & [facility]ICE INDEMNITY MEDICARE PART A & B [facility] TOTAL CHOICE INDEMNITY MEDICARE PART A & B TOTAL CHOICE INDEMNITY MEDICARE PART A & B Member Subscriber Plan / Payer ([facility] Name:Juan Talavera Jr. Member ID:[id number] Relation to Subscriber:Self Name:Juan Talavera JrDorene Subscriber ID:[id number] Payer ID:[id number] Group ID:Not on file Type:Medicare Address: [employer] [address] TOTAL CHOICE INDEMNITY MEDICARE PART A & B Member Subscriber Plan / Payer ( fective 2012-Present) Name:Juan Talavera JrDorene Member ID:[id number] Relation to Subscriber:Self Name:Juan Talavera Jr. Subscriber ID:[id number] Payer ID:[id number] Group ID:Not on file Type:Medicare Address: [employer] [address] TOTAL CHOICE INDEMNITY MEDICARE PART A & B [facility] TOTAL CHOICE INDEMNITY MEDICARE PART A & B [employer] TOTAL CHOICE INDEMNITY MEDICARE PART A & B [employer] TOTAL CHOICE INDEMNITY MEDICARE PART A & B [facility] TOTAL CHOICE INDEMNITY MEDICARE PART A & B [facility] TOTAL CHOICE INDEMNITY Care Teams Animal Nursery Worker Relationship Specialty Start Date End Date Peewee Pan MD [address] [place] [address] [place] [address] PCP - General 04/14/15 Additional Source Comments The information contained in this document represents components of the legal health record. It is not the complete legal health record.[facility]
--- OUTSIDE RECORDS SUMMARY | 2024-10-29 14:24 | XMS_ITS | Patient Health Record ---
Author Organization [facility] Address [address] [facility] [place] [address] Care Team Providers Care Fireboat Operator Name Role Phone Darren Herndon Primary Care Provider Kerry Dalton Unavailable [phone] Dario Luo Unavailable [phone] Allergies Allergen (clinical drug ingredient) Drug/Non Drug [...] Problem Acquired hammer toe of right foot ([id number] ) Other hammer toe(s) (acquired), right foot (M20.41) Active confirmed Response to treatment, Improvemen t Problem Acquired hammer toe of left foot (5851451808480104 ) Other hammer toe(s) (acquired), left foot (M20.42) Active confirmed Response to treatment, Improvemen t Problem Polyneuropathy due to type 2 diabetes mellitus (218459367) Type 2 diabetes mellitus with diabetic polyneuropathy (E11.42) Active confirmed Problem Neuropathy (869300604) Neuropathy (G62.9) Active confirmed Vital Signs Blood pressure diastolic 65 mm Hg 09/04/2024 Height 6 ft 1 in in 09/04/2024 Blood pressure systolic 128 mm Hg 09/04/2024 Weight 250 lbs 09/04/2024 BMI 32.98 kg/m2 09/04/2024 Procedures Procedure Date Ordered Date Performed Result Body Sit e 81278-HCNHMTQ NAIL, 6 OR MORE 03/07/2024 N/A 35685-WAIH SKIN LESIONS, 2 TO 4 03/07/2024 N/A 36468-MRKECAH NAIL, 6 OR MORE 06/03/2024 N/A 50404-AQRQ SKIN LESIONS, 2 TO 4 06/03/2024 N/A 57807-UBKXYBR NAIL, 6 OR MORE 09/04/2024 N/A 76373-ASRY SKIN LESIONS, 2 TO 4 09/04/2024 N/A Encounters Encounter Location Date Provider Diagnosis [address] [address] 12/07/2023 Dario Luo Tinea unguium B35.1 ; Type 2 diabetes mellitus with other diabetic neurological complication E11.49 ; Pain in right toe(s) M79.674 ; Pain in left toe(s) M79.675 ; Tinea pedis B35.3 ; Xerosis cutis L85.3 ; Primary osteoarthritis, left ankle and foot M19.072 and Primary osteoarthritis, right ankle and foot M19.[address] [address] 03/07/2024 Kerry Das Type 2 diabetes mellitus with diabetic polyneuropathy E11.42 and Tinea unguium B35.[address] [address] 06/03/2024 Kerry Das Type 2 diabetes mellitus with diabetic polyneuropathy E11.42 ; Tinea unguium B35.1 ; Other hammer toe(s) (acquired), right foot M20.41 and Other hammer toe(s) (acquired), left foot M20.[address] [address] 09/04/2024 Kerry Das Type 2 diabetes mellitus [...] (ICD-10 - M20.41) Response to treatment,Impro vement 09/04/2024 Pain in left foot (ICD-10 - M79.672) 06/03/2024 Other hammer toe(s) (acquired), left foot (ICD-10 - M20.42) Response to treatment,Impro vement 09/04/2024 Pain in right foot (ICD-10 - M79.671) 12/07/2023 Pain in left toe(s) (ICD-10 - M79.675) 12/07/2023 Tinea pedis (ICD-10 - B35.3) 12/07/2023 Xerosis cutis (ICD-10 - L85.3) 12/07/2023 Primary osteoarthritis, left ankle and foot (ICD-10 - M19.072) 12/07/2023 Primary osteoarthritis, right ankle and foot (ICD-10 - M19.071) Plan Of Treatment Pending Test Test Name Order Date 88747-YVTKYGB NAIL, 6 OR MORE 08/22/2012 05427-XIVFQOB NAIL, 6 OR MORE 02/25/2013 28188-CTJQNNM NAIL, 6 OR MORE 08/26/2013 50757-GEHOFSL NAIL, 6 OR MORE 02/26/2014 02959-NANMKXK NAIL, 6 OR MORE 09/01/2014 48122-YJYUAOO NAIL, 6 OR MORE 12/29/2014 19637-XVHIYFK NAIL, 6 OR MORE 05/06/2015 73914-KAMSJXM NAIL, 6 OR MORE 08/19/2015 44644-WFFGQKP NAIL, 6 OR MORE 11/25/2015 23449-ZEFKEGX NAIL, 6 OR MORE 02/24/2016 26617-ZQBNIFP NAIL, 6 OR MORE 05/25/2016 89867-ELGZPQM NAIL, 6 OR MORE 08/29/2016 26712-NGVJGYJ NAIL, 6 OR MORE 11/28/2016 05173-WQDDKMZ NAIL, 6 OR MORE 03/09/2017 66440-FINIQJP NAIL, 6 OR MORE 06/12/2017 60886-XYPGJQC NAIL, 6 OR MORE 09/11/2017 43411-GSAHEEV NAIL, 6 OR MORE 12/06/2017 62463-TWMTTUA NAIL, 6 OR MORE 03/07/2024 88685-FZKADLI NAIL, 6 OR MORE 06/03/2024 37874-XMCCRCB NAIL, 6 OR MORE 09/04/2024 47057-QKPU SKIN LESIONS, OVER 4 05/01/19 19 84819-RKOQ SKIN LESIONS, OVER 4 09/04/19 19 25878-LCIL SKIN LESIONS, OVER 4 01/03/20 19 44375-CKED SKIN LESIONS, OVER 4 04/10/19 20 95314-MUVW SKIN LESIONS, OVER 4 07/17/19 20 45875-ALYD SKIN LESIONS, OVER 4 10/28/19 20 33015-XBOU SKIN LESIONS, OVER 4 01/27/20 20 66176-IBBJ SKIN LESIONS, OVER 4 04/28/19 21 74870-DPNQ SKIN LESIONS, OVER 4 07/30/19 21 12894-XNQZ SKIN LESIONS, OVER 4 10/29/19 21 86250-RVUA SKIN LESIONS, OVER 4 02/11/20 21 01994-YPAY SKIN LESIONS, OVER 4 05/13/19 22 30386-AIKP SKIN LESIONS, OVER 4 12/07/19 18 86484-WTTF SKIN LESIONS, OVER 4 09/12/19 18 78996-HMUQ SKIN LESIONS, OVER 4 06/13/19 18 50119-LKXW SKIN LESIONS, OVER 4 03/09/19 18 66531-ZQMY SKIN LESIONS, OVER 4 11/29/19 17 07516-IIEO SKIN LESIONS, OVER 4 05/26/19 17 67152-QDYM SKIN LESIONS, OVER 4 08/30/19 17 14542-ZXMX SKIN LESIONS, OVER 4 02/23/19 17 28917-JQCG SKIN LESIONS, OVER 4 11/25/19 16 11167-NFWM SKIN LESIONS, OVER 4 08/19/19 16 11644-XYVY SKIN LESIONS, OVER 4 05/06/19 16 42649-ZPIP SKIN LESIONS, OVER 4 12/30/19 15 32780-NQQB SKIN LESIONS, OVER 4 09/02/19 15 14820-QGCZ SKIN LESIONS, OVER 4 02/26/19 15 11594-NYYC SKIN LESIONS, OVER 4 08/27/19 14 39069-WPTY SKIN LESIONS, OVER 4 02/25/19 14 32364-OTAI SKIN LESIONS, OVER 4 08/23/19 13 66587-UITX SKIN LESIONS, 2 TO 4 09/05/19 25 84629-OOXO SKIN LESIONS, 2 TO 4 06/04/19 25 96014-KRLV SKIN LESIONS, 2 TO 4 03/07/19 Next Appt Details Provider Name:Kerry Michelle mcallister, 12/11/2024 09:00:00 AM, [address] [place] [address], [place], [address], Insurance Providers Payer Name Payer Address Payer Phone Subscriber Number Group Number Insured Name Patient Relationship to Insured Coverage Start Date Coverage End Date Medicare National Govt Sv[employer] [address] [place] [address] [id number] Juan Talavera Self - patient is the insured 3 [employer]) [address] [place] [id number] Juan Talavera Self - patient is the insured Medical (General) History Medical History History ICD Code neuropathy mumps measles high blood pressure diabetic type II chicken pox back, hip, knee pain Surgical History Surgery Date(Month/Year) appendectomy disc surgery neck surgery deveated septum 10/2013 anal rodriguez 01/2014 colonoscopy 05/2017 Hospitalization History Reason Date(Month/Year) [facility] - Nasal polyp removal
== END 2024-10-29 11:36 | disposition home or self-care (01) ==
LOC: HO.HMCH 10:47
DX: E11.69 Type 2 diabetes mellitus with other specified complication (principal); E11.42 Type 2 diabetes mellitus with diabetic polyneuropathy; Z68.32 Body mass index [BMI] 32.0-32.9, adult; E66.811 Obesity, class 1; N40.1 Benign prostatic hyperplasia with lower urinary tract symptoms; E78.5 Hyperlipidemia, unspecified; I10 Essential (primary) hypertension; E55.9 Vitamin D deficiency, unspecified; R19.7 Diarrhea, unspecified; R10.9 Unspecified abdominal pain

== ENCOUNTER → 2024-10-29 10:46 | Outpatient (BNVA) | payer MEDICARE, OTHER, SELFPAY | DX: E11.69 Type 2 diabetes mellitus with other specified complication (principal); K64.9 Unspecified hemorrhoids; N40.1 Benign prostatic hyperplasia with lower urinary tract symptoms; E78.5 Hyperlipidemia, unspecified; I10 Essential (primary) hypertension; E11.42 Type 2 diabetes mellitus with diabetic polyneuropathy; E55.9 Vitamin D deficiency, unspecified; E66.811 Obesity, class 1; R19.7 Diarrhea, unspecified; R10.9 Unspecified abdominal pain; Z68.32 Body mass index [BMI] 32.0-32.9, adult; Z79.899 Other long term (current) drug therapy | CPT/HCPCS: 99212 ==

== ENCOUNTER 2025-01-27 07:24 | Outpatient (REF) | payer MEDICARE, OTHER, SELFPAY ==
--- OUTSIDE RECORDS SUMMARY | 2025-01-27 07:27 | XMS_ITS | Clinical Summary ---
Author Organization [facility] Address [address] [address] Phone Care Team Providers Care Paint Line Production Supervisor Name Role Phone Peewee Pan MD Primary Care Provider [phone] Allergies No known active allergies Medications lisinopril [...] VACCINE (1 - 1-dose 75+ series) 11/10/2022 INFLUENZA VACCINE (#1) 2024 , 12/10/2018, 12/07/2017, Additional history exists COVID-19 VACCINE (2 - 2024- season) 2024 04/06/2020 HEPATITIS A VACCINES Aged Out No long [...] EDT) SODIUM 139 135 - 145 MMOL/L [facility] POTASSIUM 3.6 3.5 - 5.0 MMOL/L [facility] CHLORIDE 100 100 - 108 MMOL/L [facility] [place] DIOXIDE 24.8 23.0 - 31.9 MMOL/L [facility] ANION GAP 18(Abnorm ally H) 0 - 16 [facility] 05/13/2014 8:50 AM EDT 05/13/2014 8:50 AM EDT Narrative [facility] - 05/13/2014 9:27 AM EDT SPECIAL INSTRUCTIONS s floor us Nico Ramos MD LAB BLOOD ORDERABLES [place] [address], [facility] from Last 3 Months or Most Recently Relevant to Health Maintenance Insurance MEDICARE PART A & [facility]OTAL [facility]ICE INDEMNITY MEDICARE PART A & B [facility] TOTAL CHOICE INDEMNITY MEDICARE PART A & B TOTAL CHOICE INDEMNITY MEDICARE PART A & B Member Subscriber Plan / [facility]ayer [facility] Name:Juan Talavera Jr. Member ID:[id number] Relation to Subscriber:Self Name:Juan Talavera JrDorene Subscriber ID:[id number] Payer ID:[id number] Group ID:Not on file Type:Medicare Address: [employer] [address] TOTAL CHOICE INDEMNITY MEDICARE PART A & B Member Subscriber Plan / Payer ( fective 2012-Present) Name:Juan Talavera JrDorene Member ID:[id number] Relation to Subscriber:Self Name:Juan Talavera Jr. Subscriber ID:[id number] Payer ID:[id number] Group ID:Not on file Type:Medicare Address: [employer] [address] TOTAL CHOICE INDEMNITY MEDICARE PART A & B [facility] TOTAL CHOICE INDEMNITY MEDICARE PART A & B [employer] TOTAL CHOICE INDEMNITY MEDICARE PART A & B [employer] TOTAL CHOICE INDEMNITY MEDICARE PART A & B [facility] TOTAL CHOICE INDEMNITY MEDICARE PART A & B [facility] TOTAL CHOICE INDEMNITY Care Teams Paint Line Production Supervisor Relationship Specialty Start Date End Date Peewee Pan MD [address] [place] [address] [place] [address] PCP - General 04/14/15 Additional Source Comments The information contained in this document represents components of the legal health record. It is not the complete legal health record.[facility]
--- OUTSIDE RECORDS SUMMARY | 2025-01-27 07:27 | XMS_ITS | Patient Health Record ---
Author Organization [facility] Address [address] [facility] [place] [address] Care Team Providers Care Esthetician Spa Name Role Phone Herndon Darren Primary Care Provider Kerry Dalton Unavailable [phone] Allergies Allergen (clinical drug ingredient) Drug/Non Drug Allergy documented on EMR Reaction Allergy Type Onset Date Status Grass Mix Pollens Allergen Ext Unknown Drug Allergy Active Dust Mite Mixed Allergen Ext Unknown Drug Allergy Active Results Component Value Reference Range Notes HEMOGLOBIN A1C (GLYCOHEMOGLO BIN) Reviewed date:06/03/2024 03:30:05 PM Interpretation: Performing Lab: Notes/Report: HEMOGLOBIN A1C % (HH) 7.9 HEMOGLOBIN A1C (GLYCOHEMOGLO BIN) Reviewed date:12/11/2024 08:59:58 AM Interpretation: Performing Lab: Notes/Report: HEMOGLOBIN A1C % (HH) 6.3 Reason For Referral No Information Medications Medication SIG (Take, Route, Frequency, Duration) Notes Start Date End Date Status amLODIPine Besylate 5 MG 1 tablet Orally Once a day; Duration: 30 day(s) Active Voltaren 1 % as directed Externally Not-Taking Extra-Depth Diabetic Shoes with 3 Pair Custom heat-molded multi-density innersoles . 1pair shoes/3sets inserts . .; Duration: 1 year 08/22/2012 Not-Taking metFORMIN HCl 1000 MG 1 tablet with meal s Orally Twice a day; Duration: 30 day(s) Active Lovastatin 1 tablet with a meal Orally Once a day; Duration: 30 day(s) Active Lisinopril-hydroCHLOROt hiazide 40mg 1 tablet Orally Once a day; Duration: 30 day(s) Active Aspirin 81 MG 1 tablet Orally Once a day; Duration: 30 day(s) Active Tamsulosin HCl 0.4 MG 1 capsule Orally O nce a day; Duration: 30 day(s) Not-Duarte ing Trulicity 0.75 MG/0.5ML Subcutaneous Active Extra-Depth Diabetic Shoes with 3 Pair Custom heat-molded multi-density innersoles . for 1 year . Dx: foot deformity with preulcerative skin lesions; Duration: . 09/01/2014 Active Tresiba Active Immunizations Vaccine Route Administration Date Status Comme nts Influenza Unknown 10/29/2015 Administered Influenza Unknown 11/23/2016 Administered Influenza Unknown 11/28/2017 Administered Influenza Unknown 10/14/2021 Administered Influenza Unknown 10/14/2022 Administered Influenza Unknown 11/14/2023 Administered Influenza Unknown 11/13/2024 Administered Pneumococcal Unknown 11/22/2016 Administered COVID-19 Moderna [...] Problem Acquired hammer toe of right foot (6025381221137387 ) Other hammer toe(s) (acquired), right foot (M20.41) Active confirmed Response to treatment, Improvemen t Problem Acquired hammer toe of left foot (6637095923188323 ) Other hammer toe(s) (acquired), left foot (M20.42) Active confirmed Response to treatment, Improvemen t Problem Polyneuropathy due to type 2 diabetes mellitus (973557928) Type 2 diabetes mellitus with diabetic polyneuropathy (E11.42) Active confirmed Problem Neuropathy (012986803) Neuropathy (G62.9) Active confirmed Vital Signs Blood pressure diastolic 65 mm Hg 12/11/2024 Height 6 ft 1 in in 12/11/2024 Blood pressure systolic 123 mm Hg 12/11/2024 Weight 255 lbs 12/11/2024 BMI 33.64 kg/m2 12/11/2024 Procedures Procedure Date Ordered Date Performed Result Body Sit e 67391-HJGLBXP NAIL, 6 OR MORE 03/07/2024 N/A 20057-SDNG SKIN LESIONS, 2 TO 4 03/07/2024 N/A 65920-MWAGNJQ NAIL, 6 OR MORE 06/03/2024 N/A 60883-BKHG SKIN LESIONS, 2 TO 4 06/03/2024 N/A 52765-HQDJBLJ NAIL, 6 OR MORE 09/04/2024 N/A 46164-EAHF SKIN LESIONS, 2 TO 4 09/04/2024 N/A Encounters Encounter Location Date Provider Diagnosis [address] [address] 03/07/2024 Kerry Das Type 2 diabetes mellitus with diabetic polyneuropathy E11.42 and Tinea unguium B35.[address] [address] 06/03/2024 Kerry Das Type 2 diabetes mellitus with diabetic polyneuropathy E11.42 ; Tinea unguium B35.1 ; Other hammer toe(s) (acquired), right foot M20.41 and Other hammer toe(s) (acquired), left foot M20.[address] [address] 09/04/2024 Kerry Das Type 2 diabetes mellitus with diabetic polyneuropathy E11.42 ; Tinea unguium B35.1 ; Neuropathy G62.9 ; Pain in left foot M79.672 and Pain in right foot M79.[address] [address] 12/11/2024 Kerry Das Type 2 diabetes mellitus with [...] E11.42) 09/04/2024 Tinea unguium (ICD-10 - B35.1) 12/11/2024 Type 2 diabetes mellitus with diabetic polyneuropathy (ICD-10 - E11.42) 12/11/2024 Tinea unguium (ICD-10 - B35.1) 09/04/2024 Neuropathy (ICD-10 - G62.9) 06/03/2024 Other hammer toe(s) (acquired), right foot (ICD-10 - M20.41) Response to treatment,Impro vement 09/04/2024 Pain in left foot (ICD-10 - M79.672) 09/04/2024 Pain in right foot (ICD-10 - M79.671) 06/03/2024 Other hammer toe(s) (acquired), left foot (ICD-10 - M20.42) Response to treatment,Impro vement Plan Of Treatment Pending Test Test Name Order Date 82566-JIIUUCM NAIL, 6 OR MORE 08/22/2012 94670-LPTCOFJ NAIL, 6 OR MORE 02/25/2013 38850-MNEEUQW NAIL, 6 OR MORE 08/26/2013 70220-HMNTKDE NAIL, 6 OR MORE 02/26/2014 46160-TKWPRAA NAIL, 6 OR MORE 09/01/2014 11227-FXKUIBN NAIL, 6 OR MORE 12/29/2014 82024-SASPNLQ NAIL, 6 OR MORE 05/06/2015 28630-WMZAHSD NAIL, 6 OR MORE 08/19/2015 16106-VFETXZP NAIL, 6 OR MORE 11/25/2015 75870-JJKVTTJ NAIL, 6 OR MORE 02/24/2016 23878-AXMAREG NAIL, 6 OR MORE 05/25/2016 81525-ORPOHEQ NAIL, 6 OR MORE 08/29/2016 12331-YDOMMZY NAIL, 6 OR MORE 11/28/2016 33410-FMFMGIG NAIL, 6 OR MORE 03/09/2017 25111-ZNYDCDG NAIL, 6 OR MORE 06/12/2017 34770-MHIXANC NAIL, 6 OR MORE 09/11/2017 44191-JDAUOOB NAIL, 6 OR MORE 12/06/2017 12322-YJXAFBY NAIL, 6 OR MORE 03/07/2024 39214-VGOTBIM NAIL, 6 OR MORE 06/03/2024 23573-CGFTOWA NAIL, 6 OR MORE 09/04/2024 72890-SIQW SKIN LESIONS, OVER 4 05/01/19 19 68958-QFPT SKIN LESIONS, OVER 4 09/04/19 19 98548-GNDH SKIN LESIONS, OVER 4 01/03/20 19 21814-LBHH SKIN LESIONS, OVER 4 04/10/19 94765-AIEV SKIN LESIONS, OVER 4 07/17/19 71572-EHXJ SKIN LESIONS, OVER 4 10/28/19 53078-TWZJ SKIN LESIONS, OVER 4 01/27/20 04312-QLHX SKIN LESIONS, OVER 4 04/28/19 29870-AMLG SKIN LESIONS, OVER 4 07/30/19 97411-YGOJ SKIN LESIONS, OVER 4 10/29/19 01961-FKZC SKIN LESIONS, OVER 4 02/11/20 21 62976-WLJU SKIN LESIONS, OVER 4 05/13/19 22 70354-QNON SKIN LESIONS, OVER 4 12/07/19 18 86305-TQHM SKIN LESIONS, OVER 4 09/12/19 18 61513-PZUY SKIN LESIONS, OVER 4 06/13/19 18 69268-VVJY SKIN LESIONS, OVER 4 03/09/19 18 39401-GLOA SKIN LESIONS, OVER 4 11/29/19 17 53115-OLYF SKIN LESIONS, OVER 4 05/26/19 17 88608-GZVH SKIN LESIONS, OVER 4 08/30/19 17 79638-HMQP SKIN LESIONS, OVER 4 02/23/19 17 64606-RWLA SKIN LESIONS, OVER 4 11/25/19 16 17107-SOPT SKIN LESIONS, OVER 4 08/19/19 16 83790-PLZR SKIN LESIONS, OVER 4 05/06/19 16 33027-OOCJ SKIN LESIONS, OVER 4 12/30/19 15 90270-XUVK SKIN LESIONS, OVER 4 09/02/19 15 74471-CDRN SKIN LESIONS, OVER 4 02/26/19 15 16374-FOHY SKIN LESIONS, OVER 4 08/27/19 14 01267-DGOB SKIN LESIONS, OVER 4 01/13/20 14 89337-RJDJ SKIN LESIONS, OVER 4 08/23/19 13 90037-CFAL SKIN LESIONS, 2 TO 4 09/05/19 25 93344-GBGI SKIN LESIONS, 2 TO 4 06/04/19 25 65426-TMAQ SKIN LESIONS, 2 TO 4 03/07/19 25 Next Appt Details Provider Name:Kerry mcallister, 03/17/2025 09:00:00 AM, [address] [facility], [place], [address], Insurance Providers Payer Name Payer Address Payer Phone Subscriber Number Group Number Insured Name Patient Relationship to Insured Coverage Start Date Coverage End Date Medicare National [facility] [employer] [address] [place] [address] [id number] Juan Talavera Self - patient is the insured [employer] ([employer]) [address] [place] [address] [id number] Juan Talavera Self - patient is the insured Medical (General) History Medical History History ICD Code neuropathy mumps measles high blood pressure diabetic type II chicken pox back, hip, knee pain Surgical History Surgery Date(Month/Year) appendectomy disc surgery neck surgery deveated septum 10/2013 anal rodriguez 01/2014 colonoscopy 05/2017 Hospitalization History Reason Date(Month/Year) [facility] - Nasal polyp removal
[2025-01-27 07:38] LABS: MANUAL DIFF FLAG NO
[2025-01-27 07:55] LABS: Hematocrit 44.8 % (42.0-52.0); Hemoglobin 14.8 g/dl (14.0-18.0); Imm Gran Abs Auto 0.03 X10*3/uL (0.00-0.03); Imm Gran Pct Auto 0.4 % (0.0-0.4); Lymphocytes Absolute Auto 2.1 X10*3/uL (1.2-4.9); Mean Corpuscular HGB Conc 33.0 g/dl (31.0-36.0); Mean Corpuscular Hemoglobin 29.5 pg (27.0-33.0); Mean Corpuscular Volume 89.2 fL (80.0-98.0); NRBC Abs Auto 0.000 X10*3/uL (0.0-0.012); NRBC Pct Auto 0.0 /100WBC (0.0-0.2); Platelet Count 251 X10*3/uL (160-400); Red Blood Count 5.02 X10*6/uL (4.60-5.80); White Blood Count 7.8 X10*3/uL (4.8-10.8)
[2025-01-27 08:26] LABS: Alanine Aminotransferase 26 U/L (0-40); Albumin Level 4.3 g/dL (3.5-5.0); Alkaline Phosphatase 45 U/L (39-117); Anion Gap 14 (12-20); Aspartate Amino Transferase 19 U/L (5-37); Blood Urea Nitrogen 16 mg/dL (9-16); Calcium 9.0 mg/dL (8.4-10.2); Carbon Dioxide 29 mmol/L (22-29); Chloride 102 mmol/L (96-108); Cholesterol 153 mg/dL (<200); Estimated Glomerular Filt Rate 54; HDL Cholesterol 57 mg/dL (>40); Potassium 3.5 mmol/L (3.3-5.1); Sodium 141 mmol/L (135-145); Total Protein 6.8 g/dL (6.5-8.0); Triglycerides 115 mg/dL (<150)
[2025-01-27 08:53] LABS: Appearance Urine Cloudy; Glucose Urine UA Negative (Negative); PH 5.5 (5.0-9.0); Specific Gravity - Urine 1.020 (1.005-1.025); UMIC TRIGGER UACC YES
== END 2025-01-27 07:25 | disposition home or self-care (01) ==
LOC: HO.LAB 07:24
DX: E11.9 Type 2 diabetes mellitus without complications (principal); I10 Essential (primary) hypertension; E78.5 Hyperlipidemia, unspecified; Z79.4 Long term (current) use of insulin
CPT/HCPCS: 36415; 80053; 80061; 81001; 82306; 83036; 84443; 85025

== ENCOUNTER 2025-01-29 09:51 | Outpatient (AMB) | payer MEDICARE, OTHER, SELFPAY ==
[2025-01-29 09:59] VITALS: BP 110/68; PULSE 79; RESP 18; O2SAT 97; BMI 33.3
--- NOTE | 2025-01-29 09:59 | MHC.PC.OV ---
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 Accompanied by: Self / Same As Patient Allergies grass,trees etc Allergy (Unknown, Uncoded 01/29/25 10:20) Unknown Medication List - Last Reconciled 01/29/25 by TORSTEN De Jesus amlodipine 5 mg PO DAILY 90 days aspirin 81 mg PO DAILY cholecalciferol (vitamin D3) 50 mcg PO DAILY 90 days dulaglutide (Trulicity) 0.75 mg (0.5 mL) subcut QWEEK 4 weeks insulin degludec (Tresiba FlexTouch U-100 insulin) 25 units (0.25 mL) subcut DAILY 90 days lisinopril-hydrochlorothiazide 20-12.5 mg 1 tab PO BID lovastatin 40 mg PO DAILY 90 days metformin 1,000 mg PO BID pen needle, diabetic As directed Tobacco use date assessed: 01/29/25 Fall risk assessment: No Falls in past year Last assessed Fall Risk: 01/29/25 Dental Screening Dental Screen Date: 01/29/25 Did you have a dental visit in the last 12 months?: Yes Did you have a dental problem in the last 6 months where you did not have access to dental care?: No Was dental information given to patient?: Patient has dentist HPI htn/dm/hld HPI Details In 2025, his insurance will not cover his tresiba any more, needs his long-acting swtich to a different brand HPI Comments History of Present Illness Details The patient is a 79 year old male presenting for follow-up for chronic condition management and medication adjustments. He is currently on Tresiba and Trulicity for diabetes management. His insurance, [employer], will no longer cover Tresiba. He currently has a two-box supply of Tresiba pens remaining. The patient reports taking 20 units of Tresiba every morning. His dose was temporarily increased to 25 units in the past when there was a shortage of Trulicity for several months, but it was reduced back to 20 units once he was able to obtain Trulicity again. He receives Trulicity from a local pharmacy, while his other medications are supplied through [facility] order service. His last Trulicity prescription was for a one-month supply, though he previously received a three-month supply. The patient has a history of blood in the stool, which has resolved. He reports that this was diagnosed as hemorrhoids by Dr. Herring, who performed his last colonoscopy. He recalls an emergency room visit for the bleeding where a colorectal exam was suggested, but he declined it. Health Maintenance - Recent lab results were reviewed and noted to be good. - A1c is well-controlled at 6.2. - The patient has a history of a prior colonoscopy performed by Dr. Herring. Social History Results - A1c: 6.2 - CBC: Good, with no issues. - Chemistry Panel: Results are good. - Cholesterol: Good. - Liver Enzymes: Good. - Kidney Function: Good. - Urinalysis: Good, with no issues. 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 Diabetes type 2, controlled Diabetes mellitus Vitamin D deficiency Surgical History History of biopsy History of excision of lesion History of laminectomy History of appendectomy Family History Father Old age Mother Heart disease Social History Housing: House Alcohol intake: current Alcohol intake frequency: holidays/special occasions only Patient Tobacco Use Status: Former Tobacco user Tobacco use type: Cigarette e-Cigarette/Vaping Use: Never Used Second Hand Smoke Exposure: Yes service: No Current occupational status: retired Cognitive needs: No Hearing needs: No Vision needs: Yes Questionnaire Thrive Questionnaire Date Thrive assessed: 01/29/25 What is your living situation today?: I have a steady place to live Within the past 12 months, did the food you bought not last and you didn't have the money to get more?: Never true Within the past 12 months, did you worry whether your food would run out before you got money to buy more?: Never true Do you have trouble paying for medicines?: No Do you have trouble getting transportation to medical appointments?: No Do you have trouble paying your heating and electricity bill?: No Do you have trouble taking care of your child, family member or friend?: No Do you have trouble with day-to-day activities such as bathing, preparing meals, shopping, managing finances, etc.?: No Are you currently unemployed and looking for a job?: No Are you interested in more education?: No Please select the resources that you would like help with: None Currently or been in a relationship where the following occur: No concerns reported THRIVE Score: 0 BRIAN-7 AMB Questionnaire BRIAN-7 Date BRIAN - 7 assessed: 07/29/24 Source: Developed by Drs. Filiberto Smith, Zofia Fonseca, Mohan Tello and colleagues, with an educational geoff from [employer]. Review of Systems Narrative Review of Systems - Constitutional: Reports feeling well otherwise. - Gastrointestinal: Denies current blood in stool. Reports stomach has been good. Const Denies body aches, Denies chills, Denies fever(s), Denies headache(s) and Denies poor appetite Eyes Reports no additional complaints ENT Denies dysphagia, Denies dizziness, Denies headache(s) and Denies odynophagia Card Denies chest pain, Denies syncope, Denies edema, Denies irregular heart rhythm, Denies lightheadedness and Denies dyspnea Resp Denies cough and Denies dyspnea GI Denies abdominal pain, Denies constipation, Reports GI cramping (once a week 2-3 days after Trulicity), Denies dysphagia, Reports diarrhea (once a week), Denies nausea, Denies odynophagia and Denies vomiting Reports no additional complaints Musc Reports no additional complaints and Denies abnormal gait Skin/Breast Reports system reviewed and no additional complaints, except as documented Neuro Denies abnormal gait, Denies dizziness, Denies syncope and Denies headache(s) Psych Reports no additional complaints Physical exam (Primary Care) Vital Signs: Last Vital Signs Pulse 79 01/29/25 09:59 Resp 18 01/29/25 09:59 BP 110/68 01/29/25 09:59 Pulse Ox 97 01/29/25 09:59 Oxygen Delivery Method Room Air 01/29/25 09:59 BMI result Body Mass Index 33.3 Tobacco/Smoking Status: Tobacco use Status Tobacco use date assessed 01/29/25 01/29/25 10:03 Patient Tobacco Use Status Former Tobacco user 01/29/25 10:03 Tobacco use type Cigarette 01/29/25 10:03 e-Cigarette/Vaping Use Never Used 01/29/25 10:03 Thrive Assessment: Date of Thrive Assessment Date Thrive assessed 01/29/25 01/29/25 10:03 Currently or been in a relationship where the following occur: No concerns reported Narrative Physical Exam - Lungs: Clear to auscultation bilaterally. Const General: cooperative, healthy appearing, comfortable and no acute distress Orientation/consciousness: patient oriented x3 HENMT Head: Yes normocephalic Ears: hearing grossly normal bilaterally General nose exam: Normal external nose present Eyes General: appearance normal, both eyes and all related structures Conjunctivae: conjunctivae normal Neck Neck: Yes full ROM and Yes no lymphadenopathy Resp Effort & Inspection: normal respiratory effort Auscultation: clear to auscultation bilaterally, no crackles, no rales, no rhonchi and no wheezes Cardio Rate: regular rate Rhythm: regular rhythm Skin General skin exam: no rashes or lesions noted Neuro General: patient oriented x3 Gait exam (Neuro): Normal gait present Extrem General: Yes normal to inspection, Yes full ROM and No edema Psych Affect: normal affect Attitude: cooperative Insight: Good insight present (Psych) Judgement: Good judgement present (Psych) Results Reviewed Results Reviewed: Laboratory Tests 01/27/25 01/27/25 07:31 07:36 WBC 7.8 RBC 5.02 Hgb 14.8 Hct 44.8 MCV 89.2 MCH 29.5 MCHC 33.0 RDW 13.9 Plt Count 251 Sodium 141 Potassium 3.5 Chloride 102 Carbon Dioxide 29 Anion Gap 14 BUN 16 Creatinine 1.28 Estimated GFR 54 Fasting Glucose 121 H Estimat Average Glucose 131 Hemoglobin A1c % 6.2 H Calcium 9.0 Total Bilirubin 0.9 AST 19 ALT 26 Alkaline Phosphatase 45 Total Protein 6.8 Albumin 4.3 Triglycerides 115 Cholesterol 153 LDL Cholesterol, Calc 73 HDL Cholesterol 57 25-OH Vitamin D Total 41.5 TSH 1.89 Urine Color Yellow Urine Appearance Cloudy Urine pH 5.5 Ur Specific [place] 1.020 Urine Protein Negative Urine Glucose (UA) Negative Urine Ketones Trace Urine Blood Negative Urine Nitrite Negative Ur Leukocyte Esterase Trace H Urine RBC 0-2 Urine WBC 0-5 Ur Squamous Epith Cells 0-2 Urine Bacteria None Seen Hyaline Casts 0-2 Coding Level of Care Code Est Pt Level 4 (59470) Diagnoses Type 2 diabetes mellitus with obesity E11.69; E66.9 Benign prostatic hyperplasia with lower urinary tract symptoms, symptom details unspecified N40.1 Lower urinary tract symptom detail: unspecified Dyslipidemia E78.5 Hypertension, unspecified type I10 Hypertension type: unspecified Diabetic polyneuropathy associated with type 2 diabetes mellitus E11.42 Diabetes mellitus complication detail: diabetic polyneuropathy Vitamin D deficiency E55.9 Class 1 obesity with serious comorbidity and body mass index (BMI) of 32.0 to 32.9 in adult, unspecified obesity type E66.811; Z68.32 Body mass index: BMI 32.0-32.9 Obesity classification: adult class 1 (BMI 30 - 34.9) Obesity type: unspecified obesity type Serious obesity comorbidity presence: with serious comorbidity Diarrhea, unspecified type R19.7 Diarrhea type: unspecified type Stomach cramps R10.9 Hemorrhoids, unspecified hemorrhoid type K64.9 Hemorrhoid type: unspecified Time Spent (min) 37 Assessment & Plan Assessment & Plan (1) Type 2 diabetes mellitus with obesity: Code(s): E11.69 - Type 2 diabetes mellitus with other specified complication; E66.9 - Obesity, unspecified Category: Medical Plan: A1c is 6.4% goal is less than 7% Reinforced low sugar/carbohydrate diet and activity as tolerated. Continue Trulicity 0.75 mg subQ q.week, Tresiba 20 units subQ daily switch to Toujeo 20 units subcut because his insurance is no longer going to cover the Tresiba in 2025, metformin a 1000 mg b.i.d. We will recheck labs in 3 months (2) Benign prostatic hyperplasia with lower urinary tract symptoms: Code(s): N40.1 - Benign prostatic hyperplasia with lower urinary tract symptoms Category: Medical Qualifiers: Lower urinary tract symptom detail: unspecified Qualified Code(s): N40.1 - Benign prostatic hyperplasia with lower urinary tract symptoms Plan: Reports frequent urination. Reports that he was on Flomax, but did not see any change so he stopped taking this medication. He is coping well with this for now. (3) Dyslipidemia: Code(s): E78.5 - Hyperlipidemia, unspecified Category: Medical Plan: Triglycerides 115, total cholesterol 153, LDL 73, HDL 57 Discussed lifestyle modifications including dietary changes and physical activity continue lovastatin 40 mg daily We will repeat lipid panel in 3 months (4) Hypertension: Code(s): I10 - Essential (primary) hypertension Category: Medical Qualifiers: Hypertension type: unspecified Qualified Code(s): I10 - Essential (primary) hypertension Plan: Blood pressure was 110/68 systolic goal less than 130 mmhg Encouraged DASH diet and activity as tolerated Refrain from alcohol use and if you smoke, smoking cessation is strongly advised continue amlodipine 5 mg daily, lisinopril-hydrochlorothiazide 20-12.5 mg b.i.d. (5) Diabetic neuropathy associated with type 2 diabetes mellitus: Code(s): E11.40 - Type 2 diabetes mellitus with diabetic neuropathy, unspecified Category: Medical Qualifiers: Diabetes mellitus complication detail: diabetic polyneuropathy Qualified Code(s): E11.42 - Type 2 diabetes mellitus with diabetic polyneuropathy Plan: Stable. His tingling sensation is not all the time and it does not appears to be bothersome. Will continue to monitor for now. (6) Vitamin D deficiency: Code(s): E55.9 - Vitamin D deficiency, unspecified Category: Medical Plan: Continue cholecalciferol 50 mcg daily (7) Obesity: Code(s): E66.9 - Obesity, unspecified Category: Medical Qualifiers: Body mass index: BMI 32.0-32.9 Obesity classification: adult class 1 (BMI 30 - 34.9) Obesity type: unspecified obesity type Serious obesity comorbidity presence: with serious comorbidity Qualified Code(s): E66.811 - Obesity, class 1; Z68.32 - Body mass index [BMI] 32.0-32.9, adult Plan: Discussed low-cholesterol and activity as tolerated the aid in losing weight (8) Diarrhea: Code(s): R19.7 - Diarrhea, unspecified Category: Medical Qualifiers: Diarrhea type: unspecified type Qualified Code(s): R19.7 - Diarrhea, unspecified Plan: Patient reports diarrhea once a week 2-3 days after taking Trulicity. Reports the diarrhea is associated abdominal cramping which resolves after moving balance. Patient reports that this is tolerable and it is only once a week. Will continue to monitor given the improvement in his A1C. (9) Stomach cramps: Code(s): R10.9 - Unspecified abdominal pain Category: Medical Plan: Same as above (10) Hemorrhoid: Code(s): K64.9 - Unspecified hemorrhoids Category: Medical Qualifiers: Hemorrhoid type: unspecified Qualified Code(s): K64.9 - Unspecified hemorrhoids Plan Plan Patient was informed and verbally consented to the use of an ambient scribe for clinic note documentation during this visit. 1. Type 2 Diabetes Mellitus The patient's diabetes is well-controlled with an A1c of 6.2. Due to insurance no longer covering Tresiba, a switch to an alternative long-acting insulin, such as Lantus, is planned. The dosage will remain the same at 20 units daily. The prescription will be sent to [facility] with a note to begin the new medication once the current Tresiba supply is depleted, likely in February. The prescription for Trulicity will be adjusted to a three-month supply, as his glucose levels are stable. The patient's Tresiba dosage in his record will be corrected to 20 units. He will follow up in three months. 2. 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 No active intervention is required at this time. Discussion Notes I reviewed the patient's recent lab results, which are excellent, including a well-controlled A1c of 6.2. We discussed the notice from his insurance, [employer], indicating that Tresiba will no longer be covered. I explained that we will switch to a therapeutically equivalent long-acting insulin, such as Lantus, and that the dose will remain the same. I will send the new prescription with instructions to start it once his current Tresiba supply is depleted, and the patient agreed to call the office a week before he runs out to confirm the arrangement. I also addressed his Trulicity prescription, confirming I will change it to a 3-month supply as his glucose levels are stable. We clarified that his current Tresiba dose is 20 units, and I have updated my records accordingly. I advised the patient to continue his good work and scheduled a follow-up in three months. Patient Instructions - Your recent lab work, including your A1c for diabetes, looks good. Continue with your current management. - Since your insurance will no longer pay for Tresiba, we will switch you to a different brand of long-acting insulin, like Lantus. - The new insulin works the same way, and you will take the same dose of 20 units every morning. - You can use up the Tresiba you have left. Please call our office about a week before you run out to make sure your new prescription is ready for you. - We will change your Trulicity prescription to a 3-month supply. - Please schedule a follow-up appointment in three months. Orders: Orders UA CC w/rflx Micro + Cult 3 Months E11.9 - Type 2 diabetes mellitus without complications, E55.9 - Vitamin D deficiency, unspecified, E66.811 - Obesity, class 1, E78.5 - Hyperlipidemia, unspecified, I10 - Essential (primary) hypertension, N40.1 - Benign prostatic hyperplasia with lower urinary tract symptoms, Z68.32 - Body mass index [BMI] 32.0-32.9, adult, Z79.4 - USP (current) use of insulin Vitamin D 25-OH Total 3 Months E11.9 - Type 2 diabetes mellitus without complications, E55.9 - Vitamin D deficiency, unspecified, E66.811 - Obesity, class 1, E78.5 - Hyperlipidemia, unspecified, I10 - Essential (primary) hypertension, N40.1 - Benign prostatic hyperplasia with lower urinary tract symptoms, Z68.32 - Body mass index [BMI] 32.0-32.9, adult, Z79.4 - USP (current) use of insulin Complete Blood Count Auto Diff 3 Months E11.9 - Type 2 diabetes mellitus without complications, E55.9 - Vitamin D deficiency, unspecified, E66.811 - Obesity, class 1, E78.5 - Hyperlipidemia, unspecified, I10 - Essential (primary) hypertension, N40.1 - Benign prostatic hyperplasia with lower urinary tract symptoms, Z68.32 - Body mass index [BMI] 32.0-32.9, adult, 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 Panel Fast 3 Months E11.9 - Type 2 diabetes mellitus without complications, E55.9 - Vitamin D deficiency, unspecified, E66.811 - Obesity, class 1, E78.5 - Hyperlipidemia, unspecified, I10 - Essential (primary) hypertension, N40.1 - Benign prostatic hyperplasia with lower urinary tract symptoms, Z68.32 - Body mass index [BMI] 32.0-32.9, adult, Z79.4 - USP (current) use of insulin Lipid Panel 3 Months E11.9 - Type 2 diabetes mellitus without complications, E55.9 - Vitamin D deficiency, unspecified, E66.811 - Obesity, class 1, E78.5 - Hyperlipidemia, unspecified, I10 - Essential (primary) hypertension, N40.1 - Benign prostatic hyperplasia with lower urinary tract symptoms, Z68.32 - Body mass index [BMI] 32.0-32.9, adult, 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 TSH reflex Free T4 3 Months E11.9 - Type 2 diabetes mellitus without complications, E55.9 - Vitamin D deficiency, unspecified, E66.811 - Obesity, class 1, E78.5 - Hyperlipidemia, unspecified, I10 - Essential (primary) hypertension, N40.1 - Benign prostatic hyperplasia with lower urinary tract symptoms, Z68.32 - Body mass index [BMI] 32.0-32.9, adult, Z79.4 - USP (current) use of insulin Hemoglobin A1c 3 Months E11.9 - Type 2 diabetes mellitus without complications, E55.9 - Vitamin D deficiency, unspecified, E66.811 - Obesity, class 1, E78.5 - Hyperlipidemia, unspecified, I10 - Essential (primary) hypertension, N40.1 - Benign prostatic hyperplasia with lower urinary tract symptoms, Z68.32 - Body mass index [BMI] 32.0-32.9, adult, 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
== END 2025-01-29 10:42 | disposition home or self-care (01) ==
LOC: HO.HMCH 09:52
DX: E11.69 Type 2 diabetes mellitus with other specified complication (principal); E11.42 Type 2 diabetes mellitus with diabetic polyneuropathy; Z68.32 Body mass index [BMI] 32.0-32.9, adult; E66.811 Obesity, class 1; N40.1 Benign prostatic hyperplasia with lower urinary tract symptoms; E78.5 Hyperlipidemia, unspecified; I10 Essential (primary) hypertension; E55.9 Vitamin D deficiency, unspecified; R19.7 Diarrhea, unspecified; R10.9 Unspecified abdominal pain; K64.9 Unspecified hemorrhoids

== ENCOUNTER → 2025-01-29 09:51 | Outpatient (BNVA) | payer MEDICARE, OTHER, SELFPAY | DX: N40.1 Benign prostatic hyperplasia with lower urinary tract symptoms (principal); E11.69 Type 2 diabetes mellitus with other specified complication; E66.9 Obesity, unspecified; E66.811 Obesity, class 1; Z68.42 Body mass index [BMI] 45.0-49.9, adult; E78.5 Hyperlipidemia, unspecified; I10 Essential (primary) hypertension; R19.7 Diarrhea, unspecified; K64.9 Unspecified hemorrhoids; R10.9 Unspecified abdominal pain; Z79.899 Other long term (current) drug therapy | CPT/HCPCS: 99212 ==